=== PATIENT | female | born 1945 | race Caucasian/White ===

== ENCOUNTER 2020-01-29 21:07 | Inpatient (IN) ==
--- NOTE | 2020-01-29 21:27 | DR.GENAD ---
HPI Time Seen Time Seen by Provider: 01/29/20 21:19 PCP Primary Care Physician: ANGELA HPI Comment HPI Comment: Alert / confused, known patient with decub ulcer, currently on Keflex/Clindamycin. Complaint/Symptoms Chief Complaint:: FAMILY STATES UNRESPONSIVE- EMS ARRIVED AND SHE WAS ALERT BUT CONFUSED. FAMILY ALSO STATES SHE HAS A BAD DECUB ULCERN. COVID-19 Coronavirus risk:travel/contact w/high risk person: No Has patient experienced Coronavirus symptoms: No Source History Provided: EMS Mode of Arrival Mode of Arrival: EMS Timing Onset of Chief Complaint: 01/29/20 PMH PMH Past Medical History: Yes Past Medical History: Depression, Dyslipidemia and Hypertension Past Surgical History: Yes Surgical History: Hysterectomy Family History History of Family Medical Conditions: No Social History Does patient currently use any type of tobacco product: No Have you used tobacco products in the last 12 months: No Type of Tobacco Use: None Alcohol Use: None Do you use any recreational Drugs:: No Lives With: Family Lives Where: Home Travel Risk Coronavirus risk:travel/contact w/high risk person: No Has patient experienced Coronavirus symptoms: No Infectious screening In the last 2 months have you had wt loss of >10#?: NO Have you had fever, night sweats or hemotysis?: No Have you traveled outside the country in the last 6 months?: No Isolation: Standard ROS Review of Systems Constitutional: No Symptoms Reported Eyes: No Symptoms Reported ENTM: No Symptoms Reported Respiratoy: No Symptoms Reported Cardiovascular: No Symptoms Reported Gastrointestinal/Abdominal: No Symptoms Reported Genitourinary: No Symptoms Reported Neurological: See HPI Musculoskeletal: No Symptoms Reported Integumentary: See HPI Hematologic/Lymphatic: No Symptoms Reported Endocrine: No Symptoms Reported Psychiatric: No Symptoms Reported All Other Systems: Reviewed and Negative Unable to Obtain Due To: Altered mental status and Dementia PE Vital Signs Vitals: Temperature 97.6 F Pulse Rate 112 Respiratory Rate 16 Blood Pressure 151/93 O2 Sat by Pulse Oximetry 93 General Limitations: Altered Mental Status General Appearance: In No Apparent Distress and Lethargic Head Head Exam: Normal Inspection, Atraumatic and Normocephalic Eyes Eye exam: Normal Appearance, PERRL and EOMI ENT ENT Exam: Normal Exam and Mucous Membranes Dry External Ear Exam: Normal External Inspection TM/Canal Exam: Bilateral: Normal Nose Exam: Normal Nose Exam Mouth Exam: Normal Inspection Throat Exam: Normal Inspection Neck Neck Exam: Normal Inspection and Full ROM Chest Chest Inspection: Normal Inspection Respiratory Respiratory Exam: Normal Lung Sounds Bilat; negative Accessory Muscle Use and Respiratory Distress Respiratory Exam: Bilateral: Clear to Auscultation Cardiovascular Cardiovascular Exam: Tachycardia and Irregular Rhythm Abdominal Exam Abdominal Exam: Normal Inspection, Normal Bowel Sounds and Soft; negative Distention, Tenderness, Guarding, Rebound and Rigidity Extremities Extremities Exam: Normal Inspection and Full ROM; negative Edema Back Back Exam: Other (Sacral decubitus wound approx 6 x 6 cm with central ulceration.) Neurologic Neurological Exam: Alert, Oriented X3, CN II-XII Intact and Other (NIHSS = 0) Psychiatric Psychiatric Exam: Flat Affect Skin Skin Exam: Warm, Dry, Intact and Normal Color COURSE Treatment Treatment: No localizing neurological signs or symptoms. Patient more alert and communicative after fluid bolus, and appears at baseline previously observed in this ED. Known decubitus ulcer currently under outpatient care. Chest XR read as possible aspiration pneumonia, and UTI on current antibiotic is concerning for outpatient treatment failure. Will be admitted for IV antibiotics and observation. Reevaluation 1st: Improved ROR Labs Reviewed Result Diagrams: 01/29/20 22:04 01/29/20 22:04 Laboratory: WBC 9.5 X10^3/uL (3.6-10.0) 01/29/20 22:04 RBC 3.93 X10^6/uL (3.5-5.4) 01/29/20 22:04 Hgb 11.6 g/dL (12.0-16.0) L 01/29/20 22:04 Hct 36.1 % (36.0-47.0) 01/29/20 22:04 MCV 91.7 fL (80.0-100.0) 01/29/20 22:04 MCH 29.6 pg (27.0-34.0) 01/29/20 22:04 MCHC 32.3 g/dL (33.0-35.0) L 01/29/20 22:04 RDW 15.6 % (11.6-16.5) 01/29/20 22:04 Plt Count 303 X10^3/uL (150.0-450.0) 01/29/20 22:04 MPV 9.7 fL (7.4-11.0) 01/29/20 22:04 Neut % (Auto) 74.8 % (42.0-75.0) 01/29/20 22:04 Lymph % (Auto) 17.2 % (21.0-51.0) L 01/29/20 22:04 [place] % (Auto) 6.5 % (0.0-13.0) 01/29/20 22:04 Eos % (Auto) 0.8 % (0.9-2.9) L 01/29/20 22:04 Baso % (Auto) 0.7 % (0.2-1.0) 01/29/20 22:04 Neut # (Auto) 7.1 x10^3/uL (2.2-4.8) H 01/29/20 22:04 Lymph # (Auto) 1.6 X10^3/uL (1.3-2.9) 01/29/20 22:04 [place] # (Auto) 0.6 x10^3/uL (0.3-0.8) 01/29/20 22:04 Eos # (Auto) 0.1 x10^3/uL (0.0-0.2) 01/29/20 22:04 Baso # (Auto) 0.1 X10^3/uL (0.0-0.1) 01/29/20 22:04 Absolute Nucleated RBC 0.0 /100WBC 01/29/20 22:04 PT 20.6 SECONDS (11.8-14.3) 01/29/20 21:45 INR Target Range - 01/29/20 21:45 INR 1.83 (0.8-1.3) H 01/29/20 21:45 APTT 28.9 SECONDS (22.9-36.5) 01/29/20 21:45 PTT Comment - 01/29/20 21:45 Sodium 133 mmol/L (136-145) L 01/29/20 22:04 Corrected Sodium TNP 01/29/20 22:04 Potassium 3.7 mmol/L (3.5-5.1) 01/29/20 22:04 Chloride 103 mmol/L (98-107) 01/29/20 22:04 Carbon Dioxide 23.5 mmol/L (21-32) 01/29/20 22:04 BUN 26 mg/dL (7-18) H 01/29/20 22:04 Creatinine 1.38 mg/dL (0.55-1.02) H 01/29/20 22:04 Est GFR (MDRD) Af Amer 48 (>60) L 01/29/20 22:04 Est GFR (MDRD) Non-Af 40 (>60) L 01/29/20 22:04 Glucose 81 mg/dL (65-99) 01/29/20 22:04 Lactic Acid 1.5 mmol/L (0.4-2.0) 01/29/20 22:04 Calcium 8.9 mg/dL (8.5-10.1) 01/29/20 22:04 Corrected Calcium 10.1 mg/dL (8.5-10.1) 01/29/20 22:04 Magnesium 1.8 mg/dL (1.7-2.9) 01/29/20 22:04 Total Bilirubin 0.50 mg/dL (0.2-1.0) 01/29/20 22:04 AST 25 Units/L (15-37) 01/29/20 22:04 ALT 17 Units/L (12-78) 01/29/20 22:04 Alkaline Phosphatase 59 Units/L (46-116) 01/29/20 22:04 Creatine Kinase 328 Units/L (26-192) H 01/29/20 22:04 CK-MB (CK-2) 2.4 ng/mL (0-4.0) 01/29/20 22:04 CK/CKMB % Calc 0.7 % (<4) 01/29/20 22:04 Troponin I < 0.02 ng/mL (0-1.5) 01/29/20 22:04 Total Protein 6.9 g/dL (6.4-8.2) 01/29/20 22:04 Albumin 2.5 g/dL (3.4-5.0) L 01/29/20 22:04 Globulin 4.4 g/dL (2.5-4.5) 01/29/20 22:04 Albumin/Globulin Ratio 0.6 Ratio (1.1-2.1) L 01/29/20 22:04 Specimen Type Catherized urine 01/30/20 00:50 Urine Color Yellow (YELLOW) 01/30/20 00:50 Urine Appearance Cloudy (CLEAR) 01/30/20 00:50 Urine pH 6.0 (5.0 - 8.0) 01/30/20 00:50 Ur Specific [place] 1.020 (1.000-1.030) 01/30/20 00:50 Urine Protein 2+ (NEGATIVE) 01/30/20 00:50 Urine Glucose (UA) Negative (NEGATIVE) 01/30/20 00:50 Urine Ketones Negative (NEGATIVE) 01/30/20 00:50 Urine Occult Blood 2+ (NEGATIVE) 01/30/20 00:50 Urine Nitrite Positive (NEGATIVE) 01/30/20 00:50 Urine Bilirubin Negative (NEGATIVE) 01/30/20 00:50 Urine Urobilinogen Normal (NORMAL) 01/30/20 00:50 Ur Leukocyte Esterase 1+ (NEGATIVE) 01/30/20 00:50 Urine RBC 3-5 /HPF (0-3) A 01/30/20 00:50 Urine WBC Tntc /HPF (0-5) A 01/30/20 00:50 Ur Squamous Epith Cells Rare /HPF (NEGATIVE) 01/30/20 00:50 Urine Bacteria 2+ /HPF (NEGATIVE) 01/30/20 00:50 Ur Culture Indicated? Yes/culture set up 01/30/20 00:50 EKG [place]: Normal Rhythm: NSR Block: None Hypertrophy: None ST: Normal Opioid Opioid Risk Tool Age (Elmer box if 16-45): No History of Preadolescent Sexual Abuse: No Total: 0 Total Score Risk Category: Low Risk Copyright: Rogelio SANCHEZ predicting aberrant behaviors Diagnosis Discharge Problem: Aspiration pneumonia Qualifiers: Aspiration pneumonia type: unspecified Laterality: right Lung location: middle lobe of lung Qualified Code(s): J69.0 - Pneumonitis due to inhalation of food and vomit Urinary tract infection Qualifiers: Urinary tract infection type: site unspecified Hematuria presence: with hematuria Qualified Code(s): N39.0 - Urinary tract infection, site not specified
[2020-01-29] MEDS ORDERED: NS 500 ML IV 500 ML IV ONE ×2 (21:28→21:30)
[2020-01-29] MEDS: NS 500 ML IV 500 ML IV ONE (21:35)
--- NOTE | 2020-01-29 21:44 | RAD ---
HISTORYLETHARGYSTUDYCHEST, 1 VIEWCOMPARISONNo recent exam available for comparison.FINDINGSThe trachea is midline. The cardiac silhouette is within normal limits. Hazy opacities at the medial right lung base. No pleural effusion or pneumothorax.. The bony thorax is unremarkable.IMPRESSIONHazy opacities at the medial right lung base, which may represent atelectasis or infiltrates. Aspiration could have a similar appearance. Follow-up is recommended.Electronically signed by: Radha Blanco (Jan 29, 2020 21:42:52)
[2020-01-29 22:28] LABS: LACTIC ACID 1.5 mmol/L (0.4-2.0)
[2020-01-29 22:30] LABS: BLOOD UREA NITROGEN 26 mg/dL (7-18); CALCIUM 8.9 mg/dL (8.5-10.1); CARBON DIOXIDE 23.5 mmol/L (21-32); CHLORIDE 103 mmol/L (98-107); CREATININE 1.38 mg/dL (0.55-1.02); SODIUM 133 mmol/L (136-145); TROPONIN I < 0.02 ng/mL (0-1.5); eGFR NON BLACK RACES 40 (>60)
[2020-01-29 22:34] LABS: ALANINE AMINOTRANSFERASE 17 Units/L (12-78); ALBUMIN 2.5 g/dL (3.4-5.0); ALKALINE PHOSPHATASE 59 Units/L (46-116); ASPARTATE AMINO TRANSFERASE 25 Units/L (15-37); CKMB % 0.7 % (<4); COR CA(FOR HYPOALB) 10.1 mg/dL (8.5-10.1); CREATINE KINASE 328 Units/L (26-192); CREATINE KINASE MB 2.4 ng/mL (0-4.0); MAGNESIUM 1.8 mg/dL (1.7-2.9); TOTAL PROTEIN 6.9 g/dL (6.4-8.2)
[2020-01-29 23:55] LABS: BASOPHILS # (AUTO) 0.1 X10^3/uL (0.0-0.1); BASOPHILS % (AUTO) 0.7 % (0.2-1.0); EOSINOPHILS # (AUTO) 0.1 x10^3/uL (0.0-0.2); EOSINOPHILS % (AUTO) 0.8 % (0.9-2.9); HEMATOCRIT 36.1 % (36.0-47.0); HEMOGLOBIN 11.6 g/dL (12.0-16.0); LYMPHOCYTES # (AUTO) 1.6 X10^3/uL (1.3-2.9); LYMPHOCYTES % (AUTO) 17.2 % (21.0-51.0); MEAN CORPUSCULAR HEMOGLOBIN 29.6 pg (27.0-34.0); MEAN CORPUSCULAR HGB CONC 32.3 g/dL (33.0-35.0); MEAN CORPUSCULAR VOLUME 91.7 fL (80.0-100.0); MEAN PLATELET VOLUME 9.7 fL (7.4-11.0); MONOCYTES # (AUTO) 0.6 x10^3/uL (0.3-0.8); MONOCYTES % (AUTO) 6.5 % (0.0-13.0); NEUTROPHILS # (AUTO) 7.1 x10^3/uL (2.2-4.8); NEUTROPHILS % (AUTO) 74.8 % (42.0-75.0); PLATELET COUNT 303 X10^3/uL (150.0-450.0); RED BLOOD COUNT 3.93 X10^6/uL (3.5-5.4); RED CELL DISTRIBUTION WIDTH 15.6 % (11.6-16.5); WHITE BLOOD COUNT 9.5 X10^3/uL (3.6-10.0)
[2020-01-30] MEDS ORDERED: NS 500 ML IV 500 ML IV ONE (00:15)
[2020-01-30 01:17] LABS: BILIRUBIN,URINE NEGATIVE (NEGATIVE); BLOOD/HEMOGLOBIN,URINE 2+ (NEGATIVE); GLUCOSE, URINE NEGATIVE (NEGATIVE); KETONES,URINE NEGATIVE (NEGATIVE); LEUKOCYTE ESTERASE ,URINE 1+ (NEGATIVE); NITRITES,URINE POSITIVE (NEGATIVE); PROTEIN,URINE 2+ (NEGATIVE); UROBILINOGEN,URINE NORMAL (NORMAL)
[2020-01-30 01:27] LABS: APPEARANCE,URINE CLOUDY (CLEAR); COLOR,URINE YELLOW (YELLOW)
[2020-01-30 01:28] LABS: BACTERIA,URINE 2+ /HPF (NEGATIVE); SQUAMOUS EPITHELIAL CELL,UR RARE /HPF (NEGATIVE)
[2020-01-30] MEDS ORDERED: ZOSYN VIAL 3.375 GRAMS 3.375 G in NS 100 ML IV + SPIKE MINIBAG* 100 ML IV ONE (02:11)
[2020-01-30] MEDS ORDERED: NS 100 ML IV + SPIKE MINIBAG* 100 ML IV ONE (02:13)
[2020-01-30] MEDS ORDERED: ZOSYN VIAL 3.375 GRAMS IV ONE (02:13)
[2020-01-30] MEDS ORDERED: NORCO 7.5/325 MG TAB PO ONE (02:52)
[2020-01-30] MEDS ORDERED: NORCO 7.5/325 MG TAB ONE (02:54)
[2020-01-30] MEDS ORDERED: NS 1000 ML 1,000 ML ONE (03:37)
[2020-01-30] MEDS: NS 1000 ML 1,000 ML IV SCH ×2 (03:41→17:03)
--- NOTE | 2020-01-30 04:07 | DR.H&P ---
H&P - History & Physical for Day of: H&P Date: 01/30/20 - Chief Complaint Chief Complaint: AMS - History of Present Illness History of Present Illness: PT IS 5 WF ER ADMISSION, NEW TO [facility], WITH FAMILY CO AMS. PT HAD HX OF CVA AND AFIB. PT HAS STAGE4 SACRAL DECUBITUS WITH MALODOROUS DC. PT HAD UTI ON EVALUATION IN ER. PT ADMITTED FOR ACUTE ILLNESS R/O SEPSIS. - Past Medical History Past Medical History: Anxiety, Arthritis, CVA, Dementia, Depression, Dyslipidemia, Hypertension Additional Medical History: AFIB - Past Surgical History Surgical History: Hysterectomy - Social History Does patient currently use any type of tobacco product: No Have you used tobacco products in the last 12 months: No Type of Tobacco Use: None Alcohol Use: None - Medications Home Medications: No Known Drug Allergies Allergy (Verified 01/23/20 18:03) CONTINUE taking the following medications alprazolam 1 mg PO BID PRN 01/30/20 [History] amiodarone 200 mg PO DAILY 01/30/20 [History] aspirin 81 mg PO DAILY 01/30/20 [History] atorvastatin 20 mg PO DAILY 01/30/20 [History] cephalexin 500 mg PO TID 01/30/20 [History] clopidogrel 75 mg PO DAILY 01/30/20 [History] hydrocodone-acetaminophen 1 tab PO BID PRN 01/30/20 [History] lansoprazole 30 mg PO DAILY 01/30/20 [History] lisinopril 20 mg PO BID 01/30/20 [History] megestrol 40 mg PO BID 01/30/20 [History] metoprolol succinate 50 mg PO DAILY 01/30/20 [History] montelukast 10 mg PO DAILY 01/30/20 [History] rivaroxaban [Xarelto] 20 mg PO DAILY 01/30/20 [History] - Review of Systems Constitutional: Weakness Eyes: No Symptoms Reported ENT: No Symptoms Reported Respiratory: No Symptoms Reported Cardiovascular: No Symptoms Reported. denies: Edema Gastrointestinal: Other (APPETITE LOSS) Genitourinary: Incontinence Musculoskeletal: No Symptoms Reported Skin: Wound Neurological: Weakness, Confusion - Physical Exam Vital Signs: Temperature 97.6 F Pulse Rate 112 Respiratory Rate 19 Blood Pressure [Left Arm] 182/92 Blood Pressure 151/93 O2 Sat by Pulse Oximetry 98 Oriented: Person Eyes: Normal Ear: Normal Nose: Normal Throat: Dry Respiratory: RLL Diminished, LLL Diminished Cardiovascular: Irregular : Dysuria Auscultation: Bowel Sounds: Normal Palpation: Normal Tenderness: Normal Skin: Decreased Turgur, Wound (SACRAL DECUBITUS) Musculoskeletal: Motor Deficit, Instability Psychiatric: Anxiety Affect: Anxious Speech Pattern: Inappropriate - Assessment/Plan (1) AMS (altered mental status) Status: Acute Plan: ADMIT, R/O COVID 19 SEPSIS. RAPID SWAB NEGATIVE IN ER. WOUND CULTURE, WOUND CONSULT, IV ATBX. RESP THERAPY, SPUTUM, BLOOD AND URINE CULTURE. IV HYDRATION, DALEY CATH WITH STRICT I&OS. OCCULT STOOL, VERIFY HOME MEDICATION, SUPPLEMENTAL O2. CASEMANAGEMENT CONSULT FOR FUTURE LONG TERM PLACEMENT (2) Aspiration pneumonia Qualifiers: Aspiration pneumonia type: unspecified Laterality: right Lung location: middle lobe of lung Qualified Code(s): J69.0 - Pneumonitis due to inhalation of food and vomit Status: Acute (3) Urinary tract infection Qualifiers: Urinary tract infection type: site unspecified Hematuria presence: with hematuria Qualified Code(s): N39.0 - Urinary tract infection, site not specified; R31.9 - Hematuria, unspecified Status: Acute (4) Decubitus ulcer Qualifiers: Pressure injury location: sacral region Pressure injury stage: unspecified pressure injury stage Qualified Code(s): L89.159 - Pressure ulcer of sacral region, unspecified stage Status: Acute - Allergies Allergies/Adverse Reactions: Allergies Allergy/AdvReac Type Severity Reaction Status Date / Time No Known Drug Allergies Allergy Verified 01/23/20 18:03
[2020-01-30 04:25] VITALS: BMI 15.5
[2020-01-30 05:50] LABS: BLOOD UREA NITROGEN 20 mg/dL (7-18); CALCIUM 8.7 mg/dL (8.5-10.1); CARBON DIOXIDE 24.2 mmol/L (21-32); CHLORIDE 105 mmol/L (98-107); CREATININE 1.12 mg/dL (0.55-1.02); MAGNESIUM 1.7 mg/dL (1.7-2.9); PHOSPHORUS 2.8 mg/dL (2.6-4.7); SODIUM 138 mmol/L (136-145); eGFR NON BLACK RACES 51 (>60)
[2020-01-30 05:51] LABS: BASOPHILS # (AUTO) 0.1 X10^3/uL (0.0-0.1); BASOPHILS % (AUTO) 0.6 % (0.2-1.0); EOSINOPHILS # (AUTO) 0.1 x10^3/uL (0.0-0.2); HEMATOCRIT 35.6 % (36.0-47.0); HEMOGLOBIN 11.6 g/dL (12.0-16.0); LYMPHOCYTES # (AUTO) 1.6 X10^3/uL (1.3-2.9); LYMPHOCYTES % (AUTO) 18.7 % (21.0-51.0); MEAN CORPUSCULAR HEMOGLOBIN 29.5 pg (27.0-34.0); MEAN CORPUSCULAR HGB CONC 32.6 g/dL (33.0-35.0); MEAN CORPUSCULAR VOLUME 90.4 fL (80.0-100.0); MEAN PLATELET VOLUME 8.9 fL (7.4-11.0); MONOCYTES # (AUTO) 0.4 x10^3/uL (0.3-0.8); MONOCYTES % (AUTO) 4.8 % (0.0-13.0); NEUTROPHILS # (AUTO) 6.5 x10^3/uL (2.2-4.8); NEUTROPHILS % (AUTO) 74.9 % (42.0-75.0); PLATELET COUNT 307 X10^3/uL (150.0-450.0); RED BLOOD COUNT 3.93 X10^6/uL (3.5-5.4); RED CELL DISTRIBUTION WIDTH 15.7 % (11.6-16.5); WHITE BLOOD COUNT 8.6 X10^3/uL (3.6-10.0)
[2020-01-30 05:58] LABS: PREALBUMIN 13.4 mg/dL (18-35.7)
[2020-01-30] MEDS ORDERED: KLOR-CON PO PRN (06:13)
[2020-01-30] MEDS ORDERED: K-RIDER 10 MEQ/NS 100 ML 10 MEQ/100 ML BAG IV PRN (06:13)
[2020-01-30] MEDS ORDERED: POTASSIUM CHL 40 MEQ/NS 0.45% 500 ML IV PRN (06:13)
[2020-01-30] MEDS ORDERED: POTASSIUM CHL 60 MEQ/NS 0.45% 500 ML IV PRN (06:13)
[2020-01-30] MEDS ORDERED: POTASSIUM CHLORIDE LIQ 20 MEQ UDC PO PRN (06:13)
[2020-01-30] MEDS ORDERED: MICRO K EXTEN CAP 10 MEQ PO PRN (06:13)
[2020-01-30] MEDS ORDERED: MEGESTROL 40 MG PO SCH (09:00)
[2020-01-30] MEDS ORDERED: XYLOCAINE 1 % (PLAIN) ONE (09:21)
[2020-01-30] MEDS ORDERED: XYLOCAINE 2 % (PLAIN) ONE (09:21)
[2020-01-30] MEDS ORDERED: BETADINE SOLN ONE (09:22)
[2020-01-30] MEDS ORDERED: LR 1000 ML IV 1,000 ML IV ONE (09:24)
[2020-01-30] MEDS ORDERED: ANCEF 1 GRAM IV PREMIX* 1 G/50 ML BAG IV ONE (09:25)
[2020-01-30] MEDS ORDERED: DIPRIVAN VIAL ONE (09:51)
[2020-01-30] MEDS: ZOSYN VIAL 2.25 GRAMS 2.25 G in NS 100 ML IV + SPIKE MINIBAG* 100 ML IV SCH ×3 (10:07→21:19)
--- NOTE | 2020-01-30 10:12 | OR.IMMED ---
Immediate Post-Op Note - Immediate Post-Op Note Pre-Op Diagnosis: large sacral ulcer Post-Op Diagnosis: large sacral decubitus ulcer stage lV. [id number] Procedure: excisional debridement of large sacral decubitus ulcer . Surgeon/Piece Hand: Andres Specimens Removed: necroic tissue Complications: npne Condition: Stable (to change dressing and packing daily)
[2020-01-30] MEDS ORDERED: ZESTRIL TAB 20 MG ONE ×2 (10:57→20:14)
[2020-01-30] MEDS: PLAVIX PO SCH (11:05)
[2020-01-30] MEDS: ASPIRIN EC 81 MG PO SCH (11:05)
[2020-01-30] MEDS: PREVACID PO SCH (11:05)
[2020-01-30] MEDS: TOPROL XL PO SCH (11:06)
[2020-01-30] MEDS: SINGULAIR TAB 10 MG PO SCH (11:06)
[2020-01-30] MEDS: CORDARONE TAB 200 MG PO SCH (11:06)
[2020-01-30] MEDS: MEGACE PO SCH ×2 (11:07→21:19)
[2020-01-30] MEDS: XARELTO PO SCH (11:07)
[2020-01-30] MEDS: ZESTRIL TAB 20 MG PO SCH ×2 (11:07→21:20)
[2020-01-30] MEDS: NORCO 7.5/325 MG TAB PO PRN ×2 (11:08→17:47)
[2020-01-30] MEDS ORDERED: MAGNESIUM SULFATE 1 GRAM/100 mL PREMIX 1 G/100 ML BAG IV ONE (16:08)
[2020-01-30] MEDS ORDERED: NS 250 ML IV 250 ML IV ONE (16:09)
[2020-01-30] MEDS: MAGNESIUM SULFATE 1 GRAM/100 mL PREMIX 1 GM/100 ML BAG IV PRN ×2 (16:17→17:37)
[2020-01-30] MEDS: LIPITOR TAB 20 MG PO SCH (21:19)
[2020-01-31] MEDS: NORCO 7.5/325 MG TAB PO PRN (01:14)
[2020-01-31] MEDS: ZOSYN VIAL 2.25 GRAMS 2.25 G in NS 100 ML IV + SPIKE MINIBAG* 100 ML IV SCH ×4 (01:14→20:31)
[2020-01-31] MEDS: NS 1000 ML 1,000 ML IV SCH ×3 (05:05→21:48)
[2020-01-31 07:12] LABS: ALANINE AMINOTRANSFERASE 14 Units/L (12-78); ALBUMIN 2.1 g/dL (3.4-5.0); ALKALINE PHOSPHATASE 47 Units/L (46-116); ASPARTATE AMINO TRANSFERASE 19 Units/L (15-37); BLOOD UREA NITROGEN 14 mg/dL (7-18); CALCIUM 8.2 mg/dL (8.5-10.1); CARBON DIOXIDE 24.6 mmol/L (21-32); CHLORIDE 108 mmol/L (98-107); COR CA(FOR HYPOALB) 9.7 mg/dL (8.5-10.1); CREATININE 1.05 mg/dL (0.55-1.02); SODIUM 140 mmol/L (136-145); eGFR NON BLACK RACES 55 (>60)
[2020-01-31 07:14] LABS: BASOPHILS % (AUTO) 0.5 % (0.2-1.0); EOSINOPHILS # (AUTO) 0.1 x10^3/uL (0.0-0.2); EOSINOPHILS % (AUTO) 1.1 % (0.9-2.9); HEMOGLOBIN 10.6 g/dL (12.0-16.0); LYMPHOCYTES # (AUTO) 2.2 X10^3/uL (1.3-2.9); LYMPHOCYTES % (AUTO) 24.6 % (21.0-51.0); MEAN CORPUSCULAR HGB CONC 33.1 g/dL (33.0-35.0); MEAN CORPUSCULAR VOLUME 90.7 fL (80.0-100.0); MEAN PLATELET VOLUME 8.6 fL (7.4-11.0); MONOCYTES # (AUTO) 0.6 x10^3/uL (0.3-0.8); MONOCYTES % (AUTO) 6.4 % (0.0-13.0); NEUTROPHILS % (AUTO) 67.4 % (42.0-75.0); PLATELET COUNT 281 X10^3/uL (150.0-450.0); RED BLOOD COUNT 3.53 X10^6/uL (3.5-5.4); RED CELL DISTRIBUTION WIDTH 15.4 % (11.6-16.5)
[2020-01-31] MEDS ORDERED: ZESTRIL TAB 20 MG ONE ×2 (09:35→20:16)
[2020-01-31] MEDS ORDERED: NS 100 ML IV 100 ML IV ONE (09:37)
[2020-01-31] MEDS ORDERED: ZOSYN VIAL 2.25 GRAMS IV ONE (09:37)
[2020-01-31] MEDS: ASPIRIN EC 81 MG PO SCH (09:49)
[2020-01-31] MEDS: MEGACE PO SCH ×2 (09:49→20:38)
[2020-01-31] MEDS: TOPROL XL PO SCH (09:49)
[2020-01-31] MEDS: SINGULAIR TAB 10 MG PO SCH (09:49)
[2020-01-31] MEDS: PLAVIX PO SCH (09:50)
[2020-01-31] MEDS: CORDARONE TAB 200 MG PO SCH (09:50)
[2020-01-31] MEDS: PREVACID PO SCH (09:50)
[2020-01-31] MEDS: XARELTO PO SCH (09:51)
[2020-01-31] MEDS: ZESTRIL TAB 20 MG PO SCH ×2 (09:51→20:38)
--- NOTE | 2020-01-31 11:43 | PCM.PROG ---
Progress Note Progress Note for Day of Date of Exam: 01/31/20 Subjective Subjective: Pt is a 75 yo f admitted for AMS, UTI, COVID/Sepsis r/o, Decubitus ulcer. This morning she is sitting up in bed, denies any acute events overnight. Labs/imaging: Wbc 9.0, Hgb 11.6>10.6, Plt 281, Na 140, K 3.8, Cr 1.12>1.05, Gluc 90. UA:+leuks/nitrites, UrineCX: organisms c/w contamination. WoundCx: gram negative rods, BloodCx pending. CXR: Hazy opacities at the medial right lung base, which may represent atelectasis or infiltrates. Aspiration could have a similar appearance. COVID negative. Surgery debridement of wound yesterday and pt has scheduled daily dressing changes. Continue Abx: Zosyn. Will continue to monitor and follow up labs and repeat CXR in the morning. Past Medical Family Social History Past Med/Fam/Surg Hx: No changes since H&P Allergies: Allergies No Known Drug Allergies Allergy (Verified 01/23/20 18:03) Review of Systems ROS: No change since H&P Vital Signs and I&O's Vital Signs: Temperature 97.5 F Pulse Rate [Left Radial] 81 Pulse Rate 96 Respiratory Rate 18 Blood Pressure [Left Arm] 158/85 Blood Pressure 151/93 O2 Sat by Pulse Oximetry 97 Intake and Output: Intake & Output 01/28/20 01/29/20 01/30/20 01/31/20 23:59 23:59 23:59 23:59 Intake Total 120 / 120 1770 / 1770 0 / 0 Output Total 150 / 150 800 / 800 175 / 175 Balance -30 / -30 970 / 970 -175 / -175 Physical Exam Oriented: Person Eyes: Normal Ear: Normal Nose: Normal Throat: Dry Respiratory: Diminished Cardiovascular: Irregular : Dysuria Auscultation: Bowel Sounds: Normal Tenderness: Normal Skin: Decreased Turgur and Wound (SACRAL DECUBITUS) Musculoskeletal: Motor Deficit and Instability Psychiatric: Anxiety Affect: Anxious Speech Pattern: Clear Laboratory and Diagnostics Result Diagrams: 01/31/20 06:40 01/31/20 06:40 Labs: 01/30/20 00:50 Urine,Catheterized Urine Culture - Final 01/30/20 03:55 Coccyx Gram Stain - Final 01/30/20 03:55 Coccyx Wound Culture - Preliminary Laboratory WBC 9.0 X10^3/uL (3.6-10.0) 01/31/20 06:40 RBC 3.53 X10^6/uL (3.5-5.4) 01/31/20 06:40 Hgb 10.6 g/dL (12.0-16.0) L 01/31/20 06:40 Hct 32.0 % (36.0-47.0) L 01/31/20 06:40 MCV 90.7 fL (80.0-100.0) 01/31/20 06:40 MCH 30.0 pg (27.0-34.0) 01/31/20 06:40 MCHC 33.1 g/dL (33.0-35.0) 01/31/20 06:40 RDW 15.4 % (11.6-16.5) 01/31/20 06:40 Plt Count 281 X10^3/uL (150.0-450.0) 01/31/20 06:40 MPV 8.6 fL (7.4-11.0) 01/31/20 06:40 Neut % (Auto) 67.4 % (42.0-75.0) 01/31/20 06:40 Lymph % (Auto) 24.6 % (21.0-51.0) 01/31/20 06:40 [place] % (Auto) 6.4 % (0.0-13.0) 01/31/20 06:40 Eos % (Auto) 1.1 % (0.9-2.9) 01/31/20 06:40 Baso % (Auto) 0.5 % (0.2-1.0) 01/31/20 06:40 Neut # (Auto) 6.0 x10^3/uL (2.2-4.8) H 01/31/20 06:40 Lymph # (Auto) 2.2 X10^3/uL (1.3-2.9) 01/31/20 06:40 [place] # (Auto) 0.6 x10^3/uL (0.3-0.8) 01/31/20 06:40 Eos # (Auto) 0.1 x10^3/uL (0.0-0.2) 01/31/20 06:40 Baso # (Auto) 0.0 X10^3/uL (0.0-0.1) 01/31/20 06:40 Absolute Nucleated RBC 0.0 /100WBC 01/31/20 06:40 PT 20.6 SECONDS (11.8-14.3) 01/29/20 21:45 INR Target Range - 01/29/20 21:45 INR 1.83 (0.8-1.3) H 01/29/20 21:45 APTT 28.9 SECONDS (22.9-36.5) 01/29/20 21:45 PTT Comment - 01/29/20 21:45 Sodium 140 mmol/L (136-145) 01/31/20 06:40 Corrected Sodium TNP 01/31/20 06:40 Potassium 3.8 mmol/L (3.5-5.1) 01/31/20 06:40 Chloride 108 mmol/L (98-107) H 01/31/20 06:40 Carbon Dioxide 24.6 mmol/L (21-32) 01/31/20 06:40 BUN 14 mg/dL (7-18) 01/31/20 06:40 Creatinine 1.05 mg/dL (0.55-1.02) H 01/31/20 06:40 Est GFR (MDRD) Af Amer > 60 (>60) 01/31/20 06:40 Est GFR (MDRD) Non-Af 55 (>60) L 01/31/20 06:40 Glucose 90 mg/dL (65-99) 01/31/20 06:40 Lactic Acid 1.5 mmol/L (0.4-2.0) 01/29/20 22:04 Calcium 8.2 mg/dL (8.5-10.1) L 01/31/20 06:40 Corrected Calcium 9.7 mg/dL (8.5-10.1) 01/31/20 06:40 Phosphorus 2.8 mg/dL (2.6-4.7) 01/30/20 04:20 Magnesium 1.7 mg/dL (1.7-2.9) 01/30/20 04:20 Total Bilirubin 0.30 mg/dL (0.2-1.0) 01/31/20 06:40 AST 19 Units/L (15-37) 01/31/20 06:40 ALT 14 Units/L (12-78) 01/31/20 06:40 Alkaline Phosphatase 47 Units/L (46-116) 01/31/20 06:40 Creatine Kinase 328 Units/L (26-192) H 01/29/20 22:04 CK-MB (CK-2) 2.4 ng/mL (0-4.0) 01/29/20 22:04 CK/CKMB % Calc 0.7 % (<4) 01/29/20 22:04 Troponin I < 0.02 ng/mL (0-1.5) 01/29/20 22:04 Total Protein 6.0 g/dL (6.4-8.2) L 01/31/20 06:40 Albumin 2.1 g/dL (3.4-5.0) L 01/31/20 06:40 Globulin 3.9 g/dL (2.5-4.5) 01/31/20 06:40 Albumin/Globulin Ratio 0.5 Ratio (1.1-2.1) L 01/31/20 06:40 Prealbumin 13.4 mg/dL (18-35.7) L 01/30/20 04:20 Specimen Type Catherized urine 01/30/20 00:50 Urine Color Yellow (YELLOW) 01/30/20 00:50 Urine Appearance Cloudy (CLEAR) 01/30/20 00:50 Urine pH 6.0 (5.0 - 8.0) 01/30/20 00:50 Ur Specific [place] 1.020 (1.000-1.030) 01/30/20 00:50 Urine Protein 2+ (NEGATIVE) 01/30/20 00:50 Urine Glucose (UA) Negative (NEGATIVE) 01/30/20 00:50 Urine Ketones Negative (NEGATIVE) 01/30/20 00:50 Urine Occult Blood 2+ (NEGATIVE) 01/30/20 00:50 Urine Nitrite Positive (NEGATIVE) 01/30/20 00:50 Urine Bilirubin Negative (NEGATIVE) 01/30/20 00:50 Urine Urobilinogen Normal (NORMAL) 01/30/20 00:50 Ur Leukocyte Esterase 1+ (NEGATIVE) 01/30/20 00:50 Urine RBC 3-5 /HPF (0-3) A 01/30/20 00:50 Urine WBC Tntc /HPF (0-5) A 01/30/20 00:50 Ur Squamous Epith Cells Rare /HPF (NEGATIVE) 01/30/20 00:50 Urine Bacteria 2+ /HPF (NEGATIVE) 01/30/20 00:50 Ur Culture Indicated? Yes/culture set up 01/30/20 00:50 SARS-CoV-2 (PCR) Negative (NEGATIVE) 01/30/20 02:10 Tissue Pathology To follow 01/30/20 10:00 Plan (1) AMS (altered mental status): Status: Acute Plan: ADMIT, R/O COVID 19 SEPSIS RAPID SWAB NEGATIVE IN ER WOUND CULTURE, WOUND CONSULT, IV ATBX RESP THERAPY, SPUTUM, BLOOD AND URINE CULTURE IV HYDRATION, DALEY CATH WITH STRICT I&OS OCCULT STOOL, VERIFY HOME MEDICATION, SUPPLEMENTAL O2 CASEMANAGEMENT CONSULT FOR FUTURE JAIL PLACEMENT (2) Aspiration pneumonia: Status: Acute Qualifiers: Aspiration pneumonia type: unspecified Laterality: right Lung location: middle lobe of lung Qualified Code(s): J69.0 - Pneumonitis due to inhalation of food and vomit (3) Urinary tract infection: Status: Acute Qualifiers: Hematuria presence: with hematuria Urinary tract infection type: site unspecified Qualified Code(s): N39.0 - Urinary tract infection, site not specified; R31.9 - Hematuria, unspecified (4) Decubitus ulcer: Status: Acute Qualifiers: Pressure injury location: sacral region Pressure injury stage: unspecified pressure injury stage Qualified Code(s): L89.159 - Pressure ulcer of sacral region, unspecified stage
[2020-01-31] MEDS: K-DUR TAB 20 MEQ PO PRN (15:47)
[2020-01-31] MEDS: LIPITOR TAB 20 MG PO SCH (20:38)
[2020-01-31] MEDS: TYLENOL 325 MG TAB PO PRN (20:39)
[2020-02-01] MEDS: ZOSYN VIAL 2.25 GRAMS 2.25 G in NS 100 ML IV + SPIKE MINIBAG* 100 ML IV SCH ×4 (01:37→20:40)
[2020-02-01] MEDS ORDERED: ZESTRIL TAB 20 MG ONE ×2 (08:15→19:46)
[2020-02-01] MEDS: MEGACE PO SCH ×2 (08:39→20:41)
[2020-02-01] MEDS: XARELTO PO SCH (08:40)
[2020-02-01] MEDS: TOPROL XL PO SCH (08:40)
[2020-02-01] MEDS: SINGULAIR TAB 10 MG PO SCH (08:40)
[2020-02-01] MEDS: ZESTRIL TAB 20 MG PO SCH ×2 (08:40→20:40)
[2020-02-01] MEDS: CORDARONE TAB 200 MG PO SCH (08:40)
[2020-02-01] MEDS: ASPIRIN EC 81 MG PO SCH (08:40)
[2020-02-01] MEDS: PLAVIX PO SCH (08:41)
[2020-02-01] MEDS: PREVACID PO SCH (08:41)
[2020-02-01 09:06] LABS: BASOPHILS % (AUTO) 0.5 % (0.2-1.0); EOSINOPHILS # (AUTO) 0.1 x10^3/uL (0.0-0.2); EOSINOPHILS % (AUTO) 0.9 % (0.9-2.9); HEMOGLOBIN 11.2 g/dL (12.0-16.0); LYMPHOCYTES # (AUTO) 1.1 X10^3/uL (1.3-2.9); LYMPHOCYTES % (AUTO) 12.9 % (21.0-51.0); MEAN CORPUSCULAR HEMOGLOBIN 30.2 pg (27.0-34.0); MEAN CORPUSCULAR HGB CONC 32.9 g/dL (33.0-35.0); MEAN CORPUSCULAR VOLUME 91.6 fL (80.0-100.0); MEAN PLATELET VOLUME 9.1 fL (7.4-11.0); MONOCYTES # (AUTO) 0.3 x10^3/uL (0.3-0.8); NEUTROPHILS % (AUTO) 82.7 % (42.0-75.0); PLATELET COUNT 333 X10^3/uL (150.0-450.0); RED BLOOD COUNT 3.71 X10^6/uL (3.5-5.4); WHITE BLOOD COUNT 8.4 X10^3/uL (3.6-10.0)
[2020-02-01 09:42] LABS: ALANINE AMINOTRANSFERASE 15 Units/L (12-78); ALBUMIN 2.3 g/dL (3.4-5.0); ALKALINE PHOSPHATASE 55 Units/L (46-116); ASPARTATE AMINO TRANSFERASE 19 Units/L (15-37); BLOOD UREA NITROGEN 9 mg/dL (7-18); CALCIUM 8.8 mg/dL (8.5-10.1); CARBON DIOXIDE 23.8 mmol/L (21-32); CHLORIDE 107 mmol/L (98-107); COR CA(FOR HYPOALB) 10.2 mg/dL (8.5-10.1); COR NA(FOR HYPERGLY) 141 mmol/L (136-145); CREATININE 1.06 mg/dL (0.55-1.02); SODIUM 139 mmol/L (136-145); TOTAL PROTEIN 6.8 g/dL (6.4-8.2); eGFR NON BLACK RACES 54 (>60)
--- NOTE | 2020-02-01 11:46 | PCM.PROG ---
Progress Note Progress Note for Day of Date of Exam: 02/01/20 Subjective Subjective: Pt is a 75 yo f admitted for AMS, UTI, COVID/Sepsis r/o, Decubitus ulcer. This morning she is sitting up in bed and has no concerns. Labs/imaging: Wbc 8.4, Hgb 11.2, Plt 333, Na 139, K 3.7, Cr 1.06, Gluc 190. UA:+leuks/nitrites, UrineCX: organisms c/w contamination. WoundCx: positive E. coli, BloodCx NGTD. CXR: Hazy opacities at the medial right lung base, which may represent atelectasis or infiltrates. Aspiration could have a similar appearance, repeat CXR this morning pending. COVID negative. Sacral wound followed by surgery-Dr Campos, cultures positive for E.coli. Continue Abx: Zos yn. Will continue to monitor and follow up labs in the morning. Past Medical Family Social History Past Med/Fam/Surg Hx: No changes since H&P Allergies: Allergies No Known Drug Allergies Allergy (Verified 01/23/20 18:03) Review of Systems ROS: No change since H&P Vital Signs and I&O's Vital Signs: Temperature 97.9 F Pulse Rate [Left Radial] 89 Pulse Rate 89 Respiratory Rate 18 Blood Pressure [Left Arm] 163/84 Blood Pressure 151/93 O2 Sat by Pulse Oximetry 100 Intake and Output: Intake & Output 01/29/20 01/30/20 01/31/20 02/01/20 23:59 23:59 23:59 23:59 Intake Total 120 / 120 1770 / 1770 1300 / 1300 365 / 365 Output Total 150 / 150 800 / 800 1325 / 1325 500 / 500 Balance -30 / -30 970 / 970 -25 / -25 -135 / -135 Physical Exam Oriented: Person Eyes: Normal Ear: Normal Nose: Normal Throat: Dry Respiratory: Diminished Cardiovascular: Irregular : Dysuria Auscultation: Bowel Sounds: Normal Tenderness: Normal Skin: Decreased Turgur and Wound (SACRAL DECUBITUS) Musculoskeletal: Motor Deficit and Instability Psychiatric: Anxiety Affect: Anxious Speech Pattern: Clear Laboratory and Diagnostics Result Diagrams: 02/01/20 08:50 02/01/20 08:50 Labs: 01/30/20 03:55 Coccyx Gram Stain - Final 01/30/20 03:55 Coccyx Wound Culture - Final Escherichia Coli 01/30/20 04:20 Blood Blood Culture - Preliminary 01/30/20 04:20 Blood Blood Culture - Preliminary 01/30/20 00:50 Urine,Catheterized Urine Culture - Final Laboratory WBC 8.4 X10^3/uL (3.6-10.0) 02/01/20 08:50 RBC 3.71 X10^6/uL (3.5-5.4) 02/01/20 08:50 Hgb 11.2 g/dL (12.0-16.0) L 02/01/20 08:50 Hct 34.0 % (36.0-47.0) L 02/01/20 08:50 MCV 91.6 fL (80.0-100.0) 02/01/20 08:50 MCH 30.2 pg (27.0-34.0) 02/01/20 08:50 MCHC 32.9 g/dL (33.0-35.0) L 02/01/20 08:50 RDW 16.0 % (11.6-16.5) 02/01/20 08:50 Plt Count 333 X10^3/uL (150.0-450.0) 02/01/20 08:50 MPV 9.1 fL (7.4-11.0) 02/01/20 08:50 Neut % (Auto) 82.7 % (42.0-75.0) H 02/01/20 08:50 Lymph % (Auto) 12.9 % (21.0-51.0) L 02/01/20 08:50 [place] % (Auto) 3.0 % (0.0-13.0) 02/01/20 08:50 Eos % (Auto) 0.9 % (0.9-2.9) 02/01/20 08:50 Baso % (Auto) 0.5 % (0.2-1.0) 02/01/20 08:50 Neut # (Auto) 7.0 x10^3/uL (2.2-4.8) H 02/01/20 08:50 Lymph # (Auto) 1.1 X10^3/uL (1.3-2.9) L 02/01/20 08:50 [place] # (Auto) 0.3 x10^3/uL (0.3-0.8) 02/01/20 08:50 Eos # (Auto) 0.1 x10^3/uL (0.0-0.2) 02/01/20 08:50 Baso # (Auto) 0.0 X10^3/uL (0.0-0.1) 02/01/20 08:50 Absolute Nucleated RBC 0.0 /100WBC 02/01/20 08:50 PT 20.6 SECONDS (11.8-14.3) 01/29/20 21:45 INR Target Range - 01/29/20 21:45 INR 1.83 (0.8-1.3) H 01/29/20 21:45 APTT 28.9 SECONDS (22.9-36.5) 01/29/20 21:45 PTT Comment - 01/29/20 21:45 Sodium 139 mmol/L (136-145) 02/01/20 08:50 Corrected Sodium 141 mmol/L (136-145) 02/01/20 08:50 Potassium 3.7 mmol/L (3.5-5.1) 02/01/20 08:50 Chloride 107 mmol/L (98-107) 02/01/20 08:50 Carbon Dioxide 23.8 mmol/L (21-32) 02/01/20 08:50 BUN 9 mg/dL (7-18) 02/01/20 08:50 Creatinine 1.06 mg/dL (0.55-1.02) H 02/01/20 08:50 Est GFR (MDRD) Af Amer > 60 (>60) 02/01/20 08:50 Est GFR (MDRD) Non-Af 54 (>60) L 02/01/20 08:50 Glucose 190 mg/dL (65-99) H 02/01/20 08:50 Lactic Acid 1.5 mmol/L (0.4-2.0) 01/29/20 22:04 Calcium 8.8 mg/dL (8.5-10.1) 02/01/20 08:50 Corrected Calcium 10.2 mg/dL (8.5-10.1) H 02/01/20 08:50 Phosphorus 2.8 mg/dL (2.6-4.7) 01/30/20 04:20 Magnesium 2.2 mg/dL (1.7-2.9) 01/31/20 06:40 Total Bilirubin 0.30 mg/dL (0.2-1.0) 02/01/20 08:50 AST 19 Units/L (15-37) 02/01/20 08:50 ALT 15 Units/L (12-78) 02/01/20 08:50 Alkaline Phosphatase 55 Units/L (46-116) 02/01/20 08:50 Creatine Kinase 328 Units/L (26-192) H 01/29/20 22:04 CK-MB (CK-2) 2.4 ng/mL (0-4.0) 01/29/20 22:04 CK/CKMB % Calc 0.7 % (<4) 01/29/20 22:04 Troponin I < 0.02 ng/mL (0-1.5) 01/29/20 22:04 Total Protein 6.8 g/dL (6.4-8.2) 02/01/20 08:50 Albumin 2.3 g/dL (3.4-5.0) L 02/01/20 08:50 Globulin 4.5 g/dL (2.5-4.5) 02/01/20 08:50 Albumin/Globulin Ratio 0.5 Ratio (1.1-2.1) L 02/01/20 08:50 Prealbumin 13.4 mg/dL (18-35.7) L 01/30/20 04:20 Specimen Type Catherized urine 01/30/20 00:50 Urine Color Yellow (YELLOW) 01/30/20 00:50 Urine Appearance Cloudy (CLEAR) 01/30/20 00:50 Urine pH 6.0 (5.0 - 8.0) 01/30/20 00:50 Ur Specific [place] 1.020 (1.000-1.030) 01/30/20 00:50 Urine Protein 2+ (NEGATIVE) 01/30/20 00:50 Urine Glucose (UA) Negative (NEGATIVE) 01/30/20 00:50 Urine Ketones Negative (NEGATIVE) 01/30/20 00:50 Urine Occult Blood 2+ (NEGATIVE) 01/30/20 00:50 Urine Nitrite Positive (NEGATIVE) 07/10/20 00:50 Urine Bilirubin Negative (NEGATIVE) 01/30/20 00:50 Urine Urobilinogen Normal (NORMAL) 01/30/20 00:50 Ur Leukocyte Esterase 1+ (NEGATIVE) 01/30/20 00:50 Urine RBC 3-5 /HPF (0-3) A 01/30/20 00:50 Urine WBC Tntc /HPF (0-5) A 01/30/20 00:50 Ur Squamous Epith Cells Rare /HPF (NEGATIVE) 01/30/20 00:50 Urine Bacteria 2+ /HPF (NEGATIVE) 01/30/20 00:50 Ur Culture Indicated? Yes/culture set up 01/30/20 00:50 SARS-CoV-2 (PCR) Negative (NEGATIVE) 01/30/20 02:10 Tissue Pathology To follow 01/30/20 10:00 Plan (1) AMS (altered mental status): Status: Acute Plan: ADMIT, R/O COVID 19 SEPSIS RAPID SWAB NEGATIVE IN ER WOUND CULTURE, WOUND CONSULT, IV ATBX RESP THERAPY, SPUTUM, BLOOD AND URINE CULTURE IV HYDRATION, DALEY CATH WITH STRICT I&OS OCCULT STOOL, VERIFY HOME MEDICATION, SUPPLEMENTAL O2 CASEMANAGEMENT CONSULT FOR FUTURE CARE HOME PLACEMENT (2) Aspiration pneumonia: Status: Acute Qualifiers: Aspiration pneumonia type: unspecified Laterality: right Lung location: middle lobe of lung Qualified Code(s): J69.0 - Pneumonitis due to inhalation of food and vomit (3) Urinary tract infection: Status: Acute Qualifiers: Hematuria presence: with hematuria Urinary tract infection type: site unspecified Qualified Code(s): N39.0 - Urinary tract infection, site not specified; R31.9 - Hematuria, unspecified (4) Decubitus ulcer: Status: Acute Qualifiers: Pressure injury location: sacral region Pressure injury stage: unspecified pressure injury stage Qualified Code(s): L89.159 - Pressure ulcer of sacral region, unspecified stage
[2020-02-01] MEDS: NS 1000 ML 1,000 ML IV SCH (12:11)
[2020-02-01] MEDS: NORCO 7.5/325 MG TAB PO PRN ×2 (13:14→20:41)
--- NOTE | 2020-02-01 14:34 | RAD ---
HISTORYPNEUMONIASTUDYCHEST, 1 VIEWCOMPARISONJuly 2019FINDINGSThe trachea is midline. The cardiac silhouette is unremarkable . The lungs demonstrate some worsening density in the right medial lung base suggesting developing pneumonia.. The bony thorax is unremarkable.IMPRESSIONWorsening opacity the right medial lung base suggesting developing pneumonia.Electronically signed by: ISABELLE MONTENEGRO (Feb 01, 2020 14:33:08)
[2020-02-01] MEDS: LIPITOR TAB 20 MG PO SCH (20:41)
[2020-02-02] MEDS: NS 1000 ML 1,000 ML IV SCH ×2 (02:46→16:37)
[2020-02-02] MEDS: ZOSYN VIAL 2.25 GRAMS 2.25 G in NS 100 ML IV + SPIKE MINIBAG* 100 ML IV SCH ×4 (02:46→21:00)
[2020-02-02] MEDS: NORCO 7.5/325 MG TAB PO PRN ×3 (02:46→21:21)
[2020-02-02 06:23] LABS: BASOPHILS # (AUTO) 0.1 X10^3/uL (0.0-0.1); BASOPHILS % (AUTO) 0.8 % (0.2-1.0); EOSINOPHILS # (AUTO) 0.1 x10^3/uL (0.0-0.2); EOSINOPHILS % (AUTO) 1.3 % (0.9-2.9); HEMATOCRIT 32.9 % (36.0-47.0); LYMPHOCYTES # (AUTO) 2.4 X10^3/uL (1.3-2.9); LYMPHOCYTES % (AUTO) 24.7 % (21.0-51.0); MEAN CORPUSCULAR HEMOGLOBIN 29.9 pg (27.0-34.0); MEAN CORPUSCULAR HGB CONC 33.5 g/dL (33.0-35.0); MEAN CORPUSCULAR VOLUME 89.2 fL (80.0-100.0); MEAN PLATELET VOLUME 8.6 fL (7.4-11.0); MONOCYTES # (AUTO) 0.5 x10^3/uL (0.3-0.8); MONOCYTES % (AUTO) 5.4 % (0.0-13.0); NEUTROPHILS # (AUTO) 6.5 x10^3/uL (2.2-4.8); NEUTROPHILS % (AUTO) 67.8 % (42.0-75.0); PLATELET COUNT 295 X10^3/uL (150.0-450.0); RED BLOOD COUNT 3.68 X10^6/uL (3.5-5.4); RED CELL DISTRIBUTION WIDTH 15.6 % (11.6-16.5); WHITE BLOOD COUNT 9.6 X10^3/uL (3.6-10.0)
[2020-02-02 06:44] LABS: ALANINE AMINOTRANSFERASE 18 Units/L (12-78); ALBUMIN 2.2 g/dL (3.4-5.0); ALKALINE PHOSPHATASE 54 Units/L (46-116); ASPARTATE AMINO TRANSFERASE 24 Units/L (15-37); BLOOD UREA NITROGEN 7 mg/dL (7-18); CALCIUM 8.5 mg/dL (8.5-10.1); CARBON DIOXIDE 23.7 mmol/L (21-32); CHLORIDE 105 mmol/L (98-107); COR CA(FOR HYPOALB) 9.9 mg/dL (8.5-10.1); CREATININE 0.88 mg/dL (0.55-1.02); SODIUM 139 mmol/L (136-145); TOTAL PROTEIN 6.5 g/dL (6.4-8.2); eGFR NON BLACK RACES > 60 (>60)
[2020-02-02] MEDS ORDERED: ZESTRIL TAB 20 MG ONE ×2 (07:44→20:54)
[2020-02-02] MEDS: PREVACID PO SCH (08:12)
[2020-02-02] MEDS: XARELTO PO SCH (08:12)
[2020-02-02] MEDS: ASPIRIN EC 81 MG PO SCH (08:12)
[2020-02-02] MEDS: SINGULAIR TAB 10 MG PO SCH (08:12)
[2020-02-02] MEDS: MEGACE PO SCH ×2 (08:12→21:21)
[2020-02-02] MEDS: K-DUR TAB 20 MEQ PO PRN (08:12)
[2020-02-02] MEDS: TOPROL XL PO SCH (08:13)
[2020-02-02] MEDS: ZESTRIL TAB 20 MG PO SCH ×2 (08:13→21:21)
[2020-02-02] MEDS: CORDARONE TAB 200 MG PO SCH (08:14)
[2020-02-02] MEDS: PLAVIX PO SCH (08:14)
[2020-02-02 09:43] LABS: BILIRUBIN,URINE NEGATIVE (NEGATIVE); BLOOD/HEMOGLOBIN,URINE 1+ (NEGATIVE); GLUCOSE, URINE 1+ (NEGATIVE); KETONES,URINE NEGATIVE (NEGATIVE); LEUKOCYTE ESTERASE ,URINE 1+ (NEGATIVE); NITRITES,URINE NEGATIVE (NEGATIVE); PROTEIN,URINE 3+ (NEGATIVE); UROBILINOGEN,URINE 1+ (NORMAL)
[2020-02-02 09:52] LABS: APPEARANCE,URINE HAZY (CLEAR); BACTERIA,URINE NEGATIVE /HPF (NEGATIVE); COLOR,URINE YELLOW (YELLOW); RBC,URINE 0-2 /HPF (0-3); SQUAMOUS EPITHELIAL CELL,UR NEGATIVE /HPF (NEGATIVE)
[2020-02-02] MEDS: LIPITOR TAB 20 MG PO SCH (21:20)
--- NOTE | 2020-02-02 22:07 | PCM.PROG ---
Progress Note - Progress Note for Day of Date of Exam: 02/02/20 - Subjective Subjective: Pt is a 75 yo WF admitted for AMS, UTI, COVID/Sepsis r/o, Decubitus ulcer. BloodCx NGTD. CXR: Hazy opacities at the medial right lung base, which may represent atelectasis or infiltrates. COVID negative. Sacral wound followed by surgery-Dr Campos, cultures positive for E.coli. Patient states she is doing better. Patient denies having weakness. Sattes that her heart does go in and out of A FIb. Denies any complaints at this time. - Past Medical Family Social History Past Med/Fam/Surg Hx: No changes since H&P Allergies: Allergies No Known Drug Allergies Allergy (Verified 01/23/20 18:03) - Review of Systems ROS: No change since H&P - Vital Signs and I&O's Vital Signs: Temperature 97.7 F Pulse Rate [Left Radial] 89 Pulse Rate 89 Respiratory Rate 20 Blood Pressure [Right Arm] 187/96 Blood Pressure [Left Arm] 165/90 Blood Pressure 151/93 O2 Sat by Pulse Oximetry 98 Intake and Output: Intake & Output 01/30/20 01/31/20 02/01/20 02/02/20 23:59 23:59 23:59 23:59 Intake Total 1770 / 1770 1300 / 1300 1840 / 1840 1480 / 1480 Output Total 800 / 800 1325 / 1325 2500 / 2500 3100 / 3100 Balance 970 / 970 -25 / -25 -660 / -660 -1620 / -1620 - Physical Exam Oriented: Person Eyes: Normal Ear: Normal Nose: Normal Throat: Dry Respiratory: Diminished Cardiovascular: Irregular : Dysuria Auscultation: Bowel Sounds: Normal Palpation: Normal Tenderness: Normal Skin: Decreased Turgur, Wound (SACRAL DECUBITUS) Musculoskeletal: Motor Deficit, Instability Psychiatric: Anxiety Mood Description: Calm Affect: Anxious, Flat Speech Pattern: Clear - Laboratory and Diagnostics Result Diagrams: 02/02/20 05:55 02/02/20 05:55 Labs: 01/30/20 03:55 Coccyx Gram Stain - Final 01/30/20 03:55 Coccyx Wound Culture - Final Escherichia Coli 01/30/20 04:20 Blood Blood Culture - Preliminary 01/30/20 04:20 Blood Blood Culture - Preliminary 01/30/20 00:50 Urine,Catheterized Urine Culture - Final Laboratory WBC 9.6 X10^3/uL (3.6-10.0) 02/02/20 05:55 RBC 3.68 X10^6/uL (3.5-5.4) 02/02/20 05:55 Hgb 11.0 g/dL (12.0-16.0) L 02/02/20 05:55 Hct 32.9 % (36.0-47.0) L 02/02/20 05:55 MCV 89.2 fL (80.0-100.0) 02/02/20 05:55 MCH 29.9 pg (27.0-34.0) 02/02/20 05:55 MCHC 33.5 g/dL (33.0-35.0) 02/02/20 05:55 RDW 15.6 % (11.6-16.5) 02/02/20 05:55 Plt Count 295 X10^3/uL (150.0-450.0) 02/02/20 05:55 MPV 8.6 fL (7.4-11.0) 02/02/20 05:55 Neut % (Auto) 67.8 % (42.0-75.0) 02/02/20 05:55 Lymph % (Auto) 24.7 % (21.0-51.0) 02/02/20 05:55 [place] % (Auto) 5.4 % (0.0-13.0) 02/02/20 05:55 Eos % (Auto) 1.3 % (0.9-2.9) 02/02/20 05:55 Baso % (Auto) 0.8 % (0.2-1.0) 02/02/20 05:55 Neut # (Auto) 6.5 x10^3/uL (2.2-4.8) H 02/02/20 05:55 Lymph # (Auto) 2.4 X10^3/uL (1.3-2.9) 02/02/20 05:55 [place] # (Auto) 0.5 x10^3/uL (0.3-0.8) 02/02/20 05:55 Eos # (Auto) 0.1 x10^3/uL (0.0-0.2) 02/02/20 05:55 Baso # (Auto) 0.1 X10^3/uL (0.0-0.1) 02/02/20 05:55 Absolute Nucleated RBC 0.0 /100WBC 02/02/20 05:55 PT 20.6 SECONDS (11.8-14.3) 01/29/20 21:45 INR Target Range - 01/29/20 21:45 INR 1.83 (0.8-1.3) H 01/29/20 21:45 APTT 28.9 SECONDS (22.9-36.5) 01/29/20 21:45 PTT Comment - 01/29/20 21:45 Sodium 139 mmol/L (136-145) 02/02/20 05:55 Corrected Sodium TNP 02/02/20 05:55 Potassium 3.4 mmol/L (3.5-5.1) L 02/02/20 05:55 Chloride 105 mmol/L (98-107) 02/02/20 05:55 Carbon Dioxide 23.7 mmol/L (21-32) 02/02/20 05:55 BUN 7 mg/dL (7-18) 02/02/20 05:55 Creatinine 0.88 mg/dL (0.55-1.02) 02/02/20 05:55 Est GFR (MDRD) Af Amer > 60 (>60) 02/02/20 05:55 Est GFR (MDRD) Non-Af > 60 (>60) 02/02/20 05:55 Glucose 102 mg/dL (65-99) H 02/02/20 05:55 Lactic Acid 1.5 mmol/L (0.4-2.0) 01/29/20 22:04 Calcium 8.5 mg/dL (8.5-10.1) 02/02/20 05:55 Corrected Calcium 9.9 mg/dL (8.5-10.1) 02/02/20 05:55 Phosphorus 2.8 mg/dL (2.6-4.7) 01/30/20 04:20 Magnesium 2.2 mg/dL (1.7-2.9) 01/31/20 06:40 Total Bilirubin 0.20 mg/dL (0.2-1.0) 02/02/20 05:55 AST 24 Units/L (15-37) 02/02/20 05:55 ALT 18 Units/L (12-78) 02/02/20 05:55 Alkaline Phosphatase 54 Units/L (46-116) 02/02/20 05:55 Creatine Kinase 328 Units/L (26-192) H 01/29/20 22:04 CK-MB (CK-2) 2.4 ng/mL (0-4.0) 01/29/20 22:04 CK/CKMB % Calc 0.7 % (<4) 01/29/20 22:04 Troponin I < 0.02 ng/mL (0-1.5) 01/29/20 22:04 Total Protein 6.5 g/dL (6.4-8.2) 02/02/20 05:55 Albumin 2.2 g/dL (3.4-5.0) L 02/02/20 05:55 Globulin 4.3 g/dL (2.5-4.5) 02/02/20 05:55 Albumin/Globulin Ratio 0.5 Ratio (1.1-2.1) L 02/02/20 05:55 Prealbumin 13.4 mg/dL (18-35.7) L 01/30/20 04:20 Specimen Type Catherized urine 02/02/20 09:12 Urine Color Yellow (YELLOW) 02/02/20 09:12 Urine Appearance Hazy (CLEAR) 02/02/20 09:12 Urine pH 6.0 (5.0 - 8.0) 02/02/20 09:12 Ur Specific [place] 1.010 (1.000-1.030) 02/02/20 09:12 Urine Protein 3+ (NEGATIVE) 02/02/20 09:12 Urine Glucose (UA) 1+ (NEGATIVE) 02/02/20 09:12 Urine Ketones Negative (NEGATIVE) 02/02/20 09:12 Urine Occult Blood 1+ (NEGATIVE) 02/02/20 09:12 Urine Nitrite Negative (NEGATIVE) 02/02/20 09:12 Urine Bilirubin Negative (NEGATIVE) 02/02/20 09:12 Urine Urobilinogen 1+ (NORMAL) 02/02/20 09:12 Ur Leukocyte Esterase 1+ (NEGATIVE) 02/02/20 09:12 Urine RBC 0-2 /HPF (0-3) 02/02/20 09:12 Urine WBC 0-2 /HPF (0-5) 02/02/20 09:12 Ur Squamous Epith Cells Negative /HPF (NEGATIVE) 02/02/20 09:12 Urine Bacteria Negative /HPF (NEGATIVE) 02/02/20 09:12 Ur Culture Indicated? No/not indicated 02/02/20 09:12 SARS-CoV-2 (PCR) Negative (NEGATIVE) 01/30/20 02:10 Tissue Pathology To follow 01/30/20 10:00 - Plan (1) Aspiration pneumonia Status: Acute Qualifiers: Aspiration pneumonia type: unspecified Laterality: right Lung location: middle lobe of lung Qualified Code(s): J69.0 - Pneumonitis due to inhalation of food and vomit Plan: Continue antibiotics. Deep Breathes. (2) Urinary tract infection Status: Acute Qualifiers: Urinary tract infection type: site unspecified Hematuria presence: with hematuria Qualified Code(s): N39.0 - Urinary tract infection, site not specified; R31.9 - Hematuria, unspecified Plan: Zosyn IV (3) Decubitus ulcer Status: Acute Qualifiers: Pressure injury location: sacral region Pressure injury stage: unspecified pressure injury stage Qualified Code(s): L89.159 - Pressure ulcer of sacral region, unspecified stage Plan: Dr Dudley. Zosyn IVPB (4) Physical deconditioning Status: Acute Plan: Physical Therapy. NH placement pendng. (5) Underweight due to inadequate caloric intake Status: Acute Plan: Encourage appetite (6) Paroxysmal atrial fibrillation Status: Acute Plan: Monitor heart rate
[2020-02-03] MEDS: TYLENOL 325 MG TAB PO PRN (02:03)
[2020-02-03] MEDS: ZOSYN VIAL 2.25 GRAMS 2.25 G in NS 100 ML IV + SPIKE MINIBAG* 100 ML IV SCH ×4 (02:04→21:19)
[2020-02-03 06:07] LABS: ALANINE AMINOTRANSFERASE 18 Units/L (12-78); ALBUMIN 2.4 g/dL (3.4-5.0); ALKALINE PHOSPHATASE 57 Units/L (46-116); ASPARTATE AMINO TRANSFERASE 20 Units/L (15-37); BLOOD UREA NITROGEN 9 mg/dL (7-18); CALCIUM 8.8 mg/dL (8.5-10.1); CARBON DIOXIDE 24.9 mmol/L (21-32); CHLORIDE 102 mmol/L (98-107); COR CA(FOR HYPOALB) 10.1 mg/dL (8.5-10.1); CREATININE 0.76 mg/dL (0.55-1.02); SODIUM 136 mmol/L (136-145); TOTAL PROTEIN 6.6 g/dL (6.4-8.2); eGFR NON BLACK RACES > 60 (>60)
[2020-02-03 06:09] LABS: BASOPHILS # (AUTO) 0.1 X10^3/uL (0.0-0.1); BASOPHILS % (AUTO) 0.6 % (0.2-1.0); EOSINOPHILS # (AUTO) 0.1 x10^3/uL (0.0-0.2); EOSINOPHILS % (AUTO) 0.7 % (0.9-2.9); HEMATOCRIT 34.2 % (36.0-47.0); HEMOGLOBIN 11.2 g/dL (12.0-16.0); LYMPHOCYTES # (AUTO) 2.5 X10^3/uL (1.3-2.9); LYMPHOCYTES % (AUTO) 24.8 % (21.0-51.0); MEAN CORPUSCULAR HEMOGLOBIN 29.4 pg (27.0-34.0); MEAN CORPUSCULAR HGB CONC 32.9 g/dL (33.0-35.0); MEAN CORPUSCULAR VOLUME 89.6 fL (80.0-100.0); MEAN PLATELET VOLUME 8.9 fL (7.4-11.0); MONOCYTES # (AUTO) 0.5 x10^3/uL (0.3-0.8); MONOCYTES % (AUTO) 5.2 % (0.0-13.0); NEUTROPHILS # (AUTO) 6.9 x10^3/uL (2.2-4.8); NEUTROPHILS % (AUTO) 68.7 % (42.0-75.0); PLATELET COUNT 336 X10^3/uL (150.0-450.0); RED BLOOD COUNT 3.82 X10^6/uL (3.5-5.4); RED CELL DISTRIBUTION WIDTH 15.7 % (11.6-16.5)
[2020-02-03] MEDS: NS 1000 ML 1,000 ML IV SCH ×2 (06:12→20:07)
[2020-02-03] MEDS ORDERED: ZESTRIL TAB 20 MG ONE ×2 (08:43→20:30)
[2020-02-03] MEDS: SINGULAIR TAB 10 MG PO SCH (08:57)
[2020-02-03] MEDS: MEGACE PO SCH ×2 (08:57→21:20)
[2020-02-03] MEDS: PREVACID PO SCH (08:57)
[2020-02-03] MEDS: TOPROL XL PO SCH (08:57)
[2020-02-03] MEDS: ASPIRIN EC 81 MG PO SCH (08:57)
[2020-02-03] MEDS: XARELTO PO SCH (08:57)
[2020-02-03] MEDS: CORDARONE TAB 200 MG PO SCH (08:57)
[2020-02-03] MEDS: ZESTRIL TAB 20 MG PO SCH ×2 (08:58→21:20)
[2020-02-03] MEDS: PLAVIX PO SCH (08:58)
[2020-02-03 09:02] LABS: CKMB % 2.8 % (<4); CREATINE KINASE 46 Units/L (26-192); CREATINE KINASE MB 1.3 ng/mL (0-4.0); TROPONIN I < 0.02 ng/mL (0-1.5)
[2020-02-03] MEDS ORDERED: TOPROL XL PO ONE ×2 (09:06→11:42)
[2020-02-03] MEDS ORDERED: ZOFRAN INJ 4 MG VIAL ONE (12:52)
[2020-02-03] MEDS: ZOFRAN INJ 4 MG VIAL IV PRN (12:55)
--- NOTE | 2020-02-03 13:26 | DR.PROGNOT ---
Hospital Progress Notes - Progress Note for Day of: Progress Note Date: 02/03/20 - Chief Complaint Chief Complaint: wound vac in place and working well . - Past Medical Family Social History Past Med/Fam/Surg Hx: No changes since H&P Allergies: Allergies No Known Drug Allergies Allergy (Verified 01/23/20 18:03) - Review Of Systems ROS: No change since H&P - Vital Signs Vital Signs: Temperature 98.1 F Pulse Rate [Left Radial] 103 Pulse Rate 102 Respiratory Rate 18 Blood Pressure [Right Arm] 169/110 Blood Pressure [Left Arm] 165/90 Blood Pressure 151/93 O2 Sat by Pulse Oximetry 96 - Physical Exam Oriented: Person Eyes: Normal Ear: Normal Nose: Normal Throat: Dry Respiratory: Diminished Cardiovascular: Irregular : Dysuria GI:Auscultation: Normal GI:Palpation: Normal GI: Tenderness: Normal Skin: Decreased Turgur, Wound (sacral ulcer is covered with the wound vac with good seal and suction .. mild erythema around the edges . no necrosis or abscesses ) Musculoskeletal: Motor Deficit, Instability Psychiatric: Anxiety Mood Description: Calm Affect: Anxious, Flat Speech Pattern: Clear - Laboratory and Diagnostics Result Diagrams: 02/03/20 05:15 02/03/20 05:15 Labs: 02/02/20 09:12 Urine,Clean Catch Urine Culture - Preliminary 01/30/20 03:55 Coccyx Gram Stain - Final 01/30/20 03:55 Coccyx Wound Culture - Final Escherichia Coli 01/30/20 04:20 Blood Blood Culture - Preliminary 01/30/20 04:20 Blood Blood Culture - Preliminary 01/30/20 00:50 Urine,Catheterized Urine Culture - Final Laboratory WBC 10.0 X10^3/uL (3.6-10.0) 02/03/20 05:15 RBC 3.82 X10^6/uL (3.5-5.4) 02/03/20 05:15 Hgb 11.2 g/dL (12.0-16.0) L 02/03/20 05:15 Hct 34.2 % (36.0-47.0) L 02/03/20 05:15 MCV 89.6 fL (80.0-100.0) 02/03/20 05:15 MCH 29.4 pg (27.0-34.0) 02/03/20 05:15 MCHC 32.9 g/dL (33.0-35.0) L 02/03/20 05:15 RDW 15.7 % (11.6-16.5) 02/03/20 05:15 Plt Count 336 X10^3/uL (150.0-450.0) 02/03/20 05:15 MPV 8.9 fL (7.4-11.0) 02/03/20 05:15 Neut % (Auto) 68.7 % (42.0-75.0) 02/03/20 05:15 Lymph % (Auto) 24.8 % (21.0-51.0) 02/03/20 05:15 [place] % (Auto) 5.2 % (0.0-13.0) 02/03/20 05:15 Eos % (Auto) 0.7 % (0.9-2.9) L 02/03/20 05:15 Baso % (Auto) 0.6 % (0.2-1.0) 02/03/20 05:15 Neut # (Auto) 6.9 x10^3/uL (2.2-4.8) H 02/03/20 05:15 Lymph # (Auto) 2.5 X10^3/uL (1.3-2.9) 02/03/20 05:15 [place] # (Auto) 0.5 x10^3/uL (0.3-0.8) 02/03/20 05:15 Eos # (Auto) 0.1 x10^3/uL (0.0-0.2) 02/03/20 05:15 Baso # (Auto) 0.1 X10^3/uL (0.0-0.1) 02/03/20 05:15 Absolute Nucleated RBC 0.0 /100WBC 02/03/20 05:15 PT 20.6 SECONDS (11.8-14.3) 01/29/20 21:45 INR Target Range - 01/29/20 21:45 INR 1.83 (0.8-1.3) H 01/29/20 21:45 APTT 28.9 SECONDS (22.9-36.5) 01/29/20 21:45 PTT Comment - 01/29/20 21:45 Sodium 136 mmol/L (136-145) 02/03/20 05:15 Corrected Sodium TNP 02/03/20 05:15 Potassium 3.5 mmol/L (3.5-5.1) 02/03/20 05:15 Chloride 102 mmol/L (98-107) 02/03/20 05:15 Carbon Dioxide 24.9 mmol/L (21-32) 02/03/20 05:15 BUN 9 mg/dL (7-18) 02/03/20 05:15 Creatinine 0.76 mg/dL (0.55-1.02) 02/03/20 05:15 Est GFR (MDRD) Af Amer > 60 (>60) 02/03/20 05:15 Est GFR (MDRD) Non-Af > 60 (>60) 02/03/20 05:15 Glucose 85 mg/dL (65-99) 02/03/20 05:15 Lactic Acid 1.5 mmol/L (0.4-2.0) 01/29/20 22:04 Calcium 8.8 mg/dL (8.5-10.1) 02/03/20 05:15 Corrected Calcium 10.1 mg/dL (8.5-10.1) 02/03/20 05:15 Phosphorus 2.8 mg/dL (2.6-4.7) 01/30/20 04:20 Magnesium 2.2 mg/dL (1.7-2.9) 01/31/20 06:40 Total Bilirubin 0.40 mg/dL (0.2-1.0) 02/03/20 05:15 AST 20 Units/L (15-37) 02/03/20 05:15 ALT 18 Units/L (12-78) 02/03/20 05:15 Alkaline Phosphatase 57 Units/L (46-116) 02/03/20 05:15 Creatine Kinase 46 Units/L (26-192) 02/03/20 08:10 CK-MB (CK-2) 1.3 ng/mL (0-4.0) 02/03/20 08:10 CK/CKMB % Calc 2.8 % (<4) 02/03/20 08:10 Troponin I < 0.02 ng/mL (0-1.5) 02/03/20 08:10 Total Protein 6.6 g/dL (6.4-8.2) 02/03/20 05:15 Albumin 2.4 g/dL (3.4-5.0) L 02/03/20 05:15 Globulin 4.2 g/dL (2.5-4.5) 02/03/20 05:15 Albumin/Globulin Ratio 0.6 Ratio (1.1-2.1) L 02/03/20 05:15 Prealbumin 13.4 mg/dL (18-35.7) L 01/30/20 04:20 Specimen Type Catherized urine 02/02/20 09:12 Urine Color Yellow (YELLOW) 02/02/20 09:12 Urine Appearance Hazy (CLEAR) 02/02/20 09:12 Urine pH 6.0 (5.0 - 8.0) 02/02/20 09:12 Ur Specific [place] 1.010 (1.000-1.030) 02/02/20 09:12 Urine Protein 3+ (NEGATIVE) 02/02/20 09:12 Urine Glucose (UA) 1+ (NEGATIVE) 02/02/20 09:12 Urine Ketones Negative (NEGATIVE) 02/02/20 09:12 Urine Occult Blood 1+ (NEGATIVE) 02/02/20 09:12 Urine Nitrite Negative (NEGATIVE) 02/02/20 09:12 Urine Bilirubin Negative (NEGATIVE) 02/02/20 09:12 Urine Urobilinogen 1+ (NORMAL) 02/02/20 09:12 Ur Leukocyte Esterase 1+ (NEGATIVE) 02/02/20 09:12 Urine RBC 0-2 /HPF (0-3) 02/02/20 09:12 Urine WBC 0-2 /HPF (0-5) 02/02/20 09:12 Ur Squamous Epith Cells Negative /HPF (NEGATIVE) 02/02/20 09:12 Urine Bacteria Negative /HPF (NEGATIVE) 02/02/20 09:12 Ur Culture Indicated? No/not indicated 02/02/20 09:12 SARS-CoV-2 (PCR) Negative (NEGATIVE) 01/30/20 02:10 Tissue Pathology To follow 01/30/20 10:00 - Assessment and Plan 1: large stage lV sacral ulcer . s/p debridement and placement of wound vac . pt is stable and could be followed as out Pt to inspect the ulcer for further debridement as needed . - Problem Patient Problems: Patient Problems Aspiration pneumonia (Acute) J69.0 Urinary tract infection (Acute) N39.0 AMS (altered mental status) (Acute) R41.82 Paroxysmal atrial fibrillation (Acute) I48.0 Physical deconditioning (Acute) R53.81 Underweight due to inadequate caloric intake (Acute) R63.6
[2020-02-03] MEDS: NORCO 7.5/325 MG TAB PO PRN (18:34)
[2020-02-03] MEDS: LIPITOR TAB 20 MG PO SCH (21:19)
--- NOTE | 2020-02-03 21:54 | PCM.PROG ---
Progress Note - Progress Note for Day of Date of Exam: 02/03/20 - Subjective Subjective: Pt is a 75 yo WF admitted for AMS, UTI, COVID/Sepsis r/o, Decubitus ulcer. BloodCx NGTD. CXR: Hazy opacities at the medial right lung base, which may represent atelectasis or infiltrates. COVID negative. Sacral wound followed by surgery-Dr Campos, cultures positive for E.coli. Patient states she is doing better. Patient denies having weakness. Sattes that her heart does go in and out of A FIb. Denies any complaints at this time. - Past Medical Family Social History Past Med/Fam/Surg Hx: No changes since H&P Allergies: Allergies No Known Drug Allergies Allergy (Verified 01/23/20 18:03) - Review of Systems ROS: No change since H&P - Vital Signs and I&O's Vital Signs: Temperature 99.1 F Pulse Rate [Left Radial] 70 Pulse Rate 102 Respiratory Rate 18 Blood Pressure [Right Arm] 140/81 Blood Pressure [Left Arm] 165/90 Blood Pressure 151/93 O2 Sat by Pulse Oximetry 98 Intake and Output: Intake & Output 01/31/20 02/01/20 02/02/20 02/03/20 23:59 23:59 23:59 23:59 Intake Total 1300 / 1300 1840 / 1840 2320 / 2320 1075 / 1075 Output Total 1325 / 1325 2500 / 2500 3900 / 3900 1200 / 1200 Balance -25 / -25 -660 / -660 -1580 / -1580 -125 / -125 - Physical Exam Oriented: Person Eyes: Normal Ear: Normal Nose: Normal Throat: Dry Respiratory: Diminished Cardiovascular: Irregular : Dysuria Auscultation: Bowel Sounds: Normal Tenderness: Normal Skin: Wound (sacral ulcer is covered with the wound vac wound vac to sacral decubitus) Musculoskeletal: Motor Deficit, Instability Psychiatric: Anxiety Mood Description: Calm Affect: Anxious, Flat Speech Pattern: Clear - Laboratory and Diagnostics Result Diagrams: 02/03/20 05:15 02/03/20 05:15 Labs: 02/02/20 09:12 Urine,Clean Catch Urine Culture - Preliminary 01/30/20 03:55 Coccyx Gram Stain - Final 01/30/20 03:55 Coccyx Wound Culture - Final Escherichia Coli 01/30/20 04:20 Blood Blood Culture - Preliminary 01/30/20 04:20 Blood Blood Culture - Preliminary 01/30/20 00:50 Urine,Catheterized Urine Culture - Final Laboratory WBC 10.0 X10^3/uL (3.6-10.0) 02/03/20 05:15 RBC 3.82 X10^6/uL (3.5-5.4) 02/03/20 05:15 Hgb 11.2 g/dL (12.0-16.0) L 02/03/20 05:15 Hct 34.2 % (36.0-47.0) L 02/03/20 05:15 MCV 89.6 fL (80.0-100.0) 02/03/20 05:15 MCH 29.4 pg (27.0-34.0) 02/03/20 05:15 MCHC 32.9 g/dL (33.0-35.0) L 02/03/20 05:15 RDW 15.7 % (11.6-16.5) 02/03/20 05:15 Plt Count 336 X10^3/uL (150.0-450.0) 02/03/20 05:15 MPV 8.9 fL (7.4-11.0) 02/03/20 05:15 Neut % (Auto) 68.7 % (42.0-75.0) 02/03/20 05:15 Lymph % (Auto) 24.8 % (21.0-51.0) 02/03/20 05:15 [place] % (Auto) 5.2 % (0.0-13.0) 02/03/20 05:15 Eos % (Auto) 0.7 % (0.9-2.9) L 02/03/20 05:15 Baso % (Auto) 0.6 % (0.2-1.0) 02/03/20 05:15 Neut # (Auto) 6.9 x10^3/uL (2.2-4.8) H 02/03/20 05:15 Lymph # (Auto) 2.5 X10^3/uL (1.3-2.9) 02/03/20 05:15 [place] # (Auto) 0.5 x10^3/uL (0.3-0.8) 02/03/20 05:15 Eos # (Auto) 0.1 x10^3/uL (0.0-0.2) 02/03/20 05:15 Baso # (Auto) 0.1 X10^3/uL (0.0-0.1) 02/03/20 05:15 Absolute Nucleated RBC 0.0 /100WBC 02/03/20 05:15 PT 20.6 SECONDS (11.8-14.3) 01/29/20 21:45 INR Target Range - 01/29/20 21:45 INR 1.83 (0.8-1.3) H 01/29/20 21:45 APTT 28.9 SECONDS (22.9-36.5) 01/29/20 21:45 PTT Comment - 01/29/20 21:45 Sodium 136 mmol/L (136-145) 02/03/20 05:15 Corrected Sodium TNP 02/03/20 05:15 Potassium 3.5 mmol/L (3.5-5.1) 02/03/20 05:15 Chloride 102 mmol/L (98-107) 02/03/20 05:15 Carbon Dioxide 24.9 mmol/L (21-32) 02/03/20 05:15 BUN 9 mg/dL (7-18) 02/03/20 05:15 Creatinine 0.76 mg/dL (0.55-1.02) 02/03/20 05:15 Est GFR (MDRD) Af Amer > 60 (>60) 02/03/20 05:15 Est GFR (MDRD) Non-Af > 60 (>60) 02/03/20 05:15 Glucose 85 mg/dL (65-99) 02/03/20 05:15 Lactic Acid 1.5 mmol/L (0.4-2.0) 01/29/20 22:04 Calcium 8.8 mg/dL (8.5-10.1) 02/03/20 05:15 Corrected Calcium 10.1 mg/dL (8.5-10.1) 02/03/20 05:15 Phosphorus 2.8 mg/dL (2.6-4.7) 01/30/20 04:20 Magnesium 2.2 mg/dL (1.7-2.9) 01/31/20 06:40 Total Bilirubin 0.40 mg/dL (0.2-1.0) 02/03/20 05:15 AST 20 Units/L (15-37) 02/03/20 05:15 ALT 18 Units/L (12-78) 02/03/20 05:15 Alkaline Phosphatase 57 Units/L (46-116) 02/03/20 05:15 Creatine Kinase 46 Units/L (26-192) 02/03/20 08:10 CK-MB (CK-2) 1.3 ng/mL (0-4.0) 02/03/20 08:10 CK/CKMB % Calc 2.8 % (<4) 02/03/20 08:10 Troponin I < 0.02 ng/mL (0-1.5) 02/03/20 08:10 Total Protein 6.6 g/dL (6.4-8.2) 02/03/20 05:15 Albumin 2.4 g/dL (3.4-5.0) L 02/03/20 05:15 Globulin 4.2 g/dL (2.5-4.5) 02/03/20 05:15 Albumin/Globulin Ratio 0.6 Ratio (1.1-2.1) L 02/03/20 05:15 Prealbumin 13.4 mg/dL (18-35.7) L 01/30/20 04:20 Specimen Type Catherized urine 02/02/20 09:12 Urine Color Yellow (YELLOW) 02/02/20 09:12 Urine Appearance Hazy (CLEAR) 02/02/20 09:12 Urine pH 6.0 (5.0 - 8.0) 02/02/20 09:12 Ur Specific [place] 1.010 (1.000-1.030) 02/02/20 09:12 Urine Protein 3+ (NEGATIVE) 02/02/20 09:12 Urine Glucose (UA) 1+ (NEGATIVE) 02/02/20 09:12 Urine Ketones Negative (NEGATIVE) 02/02/20 09:12 Urine Occult Blood 1+ (NEGATIVE) 02/02/20 09:12 Urine Nitrite Negative (NEGATIVE) 02/02/20 09:12 Urine Bilirubin Negative (NEGATIVE) 02/02/20 09:12 Urine Urobilinogen 1+ (NORMAL) 02/02/20 09:12 Ur Leukocyte Esterase 1+ (NEGATIVE) 02/02/20 09:12 Urine RBC 0-2 /HPF (0-3) 02/02/20 09:12 Urine WBC 0-2 /HPF (0-5) 02/02/20 09:12 Ur Squamous Epith Cells Negative /HPF (NEGATIVE) 02/02/20 09:12 Urine Bacteria Negative /HPF (NEGATIVE) 02/02/20 09:12 Ur Culture Indicated? No/not indicated 02/02/20 09:12 SARS-CoV-2 (PCR) Negative (NEGATIVE) 01/30/20 02:10 Tissue Pathology To follow 01/30/20 10:00 - Plan (1) Aspiration pneumonia Status: Acute Qualifiers: Aspiration pneumonia type: unspecified Laterality: right Lung location: middle lobe of lung Qualified Code(s): J69.0 - Pneumonitis due to inhalation of food and vomit Plan: Continue antibiotics. Deep Breathes. (2) Urinary tract infection Status: Acute Qualifiers: Urinary tract infection type: site unspecified Hematuria presence: with hematuria Qualified Code(s): N39.0 - Urinary tract infection, site not specified; R31.9 - Hematuria, unspecified Plan: Zosyn IV (3) Decubitus ulcer Status: Inactive Qualifiers: Pressure injury location: sacral region Pressure injury stage: unspecified pressure injury stage Qualified Code(s): L89.159 - Pressure ulcer of sacral region, unspecified stage Plan: Dr Dudley. Zosyn IVPB (4) Physical deconditioning Status: Acute Plan: Physical Therapy. NH placement pendng. (5) Underweight due to inadequate caloric intake Status: Acute Plan: Encourage appetite (6) Paroxysmal atrial fibrillation Status: Acute Plan: Monitor heart rate
[2020-02-04] MEDS: ZOSYN VIAL 2.25 GRAMS 2.25 G in NS 100 ML IV + SPIKE MINIBAG* 100 ML IV SCH ×4 (03:30→20:23)
--- NOTE | 2020-02-04 05:06 | RAD ---
HISTORYPNEUMONIASTUDYCHEST, 1 [id number]/12/2020 isFINDINGSThe trachea is midline. The cardiac silhouette is unremarkable . The lungs are clear without focal infiltrate or effusion. Pulmonary vasculature within normal limits. No pneumothorax. The bony thorax is unremarkable.IMPRESSIONNo acute cardiopulmonary disease.Electronically signed by: Tha Ndiaye (Feb 04, 2020 05:04:56)
[2020-02-04] MEDS ORDERED: COLACE CAP 100 MG PO ONE (05:31)
[2020-02-04] MEDS: COLACE CAP 100 MG PO PRN ×2 (05:53→20:24)
[2020-02-04 06:04] LABS: BASOPHILS # (AUTO) 0.1 X10^3/uL (0.0-0.1); BASOPHILS % (AUTO) 0.7 % (0.2-1.0); EOSINOPHILS # (AUTO) 0.1 x10^3/uL (0.0-0.2); EOSINOPHILS % (AUTO) 0.7 % (0.9-2.9); HEMATOCRIT 33.5 % (36.0-47.0); HEMOGLOBIN 10.9 g/dL (12.0-16.0); LYMPHOCYTES # (AUTO) 1.8 X10^3/uL (1.3-2.9); LYMPHOCYTES % (AUTO) 18.3 % (21.0-51.0); MEAN CORPUSCULAR HEMOGLOBIN 29.4 pg (27.0-34.0); MEAN CORPUSCULAR HGB CONC 32.7 g/dL (33.0-35.0); MEAN CORPUSCULAR VOLUME 89.9 fL (80.0-100.0); MONOCYTES # (AUTO) 0.5 x10^3/uL (0.3-0.8); MONOCYTES % (AUTO) 5.2 % (0.0-13.0); NEUTROPHILS # (AUTO) 7.5 x10^3/uL (2.2-4.8); NEUTROPHILS % (AUTO) 75.1 % (42.0-75.0); PLATELET COUNT 341 X10^3/uL (150.0-450.0); RED BLOOD COUNT 3.72 X10^6/uL (3.5-5.4); RED CELL DISTRIBUTION WIDTH 15.6 % (11.6-16.5)
[2020-02-04 06:15] LABS: ALANINE AMINOTRANSFERASE 13 Units/L (12-78); ALBUMIN 2.4 g/dL (3.4-5.0); ALKALINE PHOSPHATASE 53 Units/L (46-116); ASPARTATE AMINO TRANSFERASE 21 Units/L (15-37); BLOOD UREA NITROGEN 10 mg/dL (7-18); CALCIUM 8.7 mg/dL (8.5-10.1); CARBON DIOXIDE 23.2 mmol/L (21-32); CHLORIDE 104 mmol/L (98-107); CREATININE 0.89 mg/dL (0.55-1.02); SODIUM 137 mmol/L (136-145); TOTAL PROTEIN 6.5 g/dL (6.4-8.2); eGFR NON BLACK RACES > 60 (>60)
[2020-02-04] MEDS: ZOFRAN INJ 4 MG VIAL IV PRN (08:16)
[2020-02-04] MEDS ORDERED: ZESTRIL TAB 20 MG ONE ×2 (08:31→20:09)
[2020-02-04] MEDS: TOPROL XL PO SCH (09:06)
[2020-02-04] MEDS: ZESTRIL TAB 20 MG PO SCH ×2 (09:07→20:24)
[2020-02-04] MEDS: PREVACID PO SCH (09:07)
[2020-02-04] MEDS: ASPIRIN EC 81 MG PO SCH (09:07)
[2020-02-04] MEDS: MEGACE PO SCH ×2 (09:07→20:24)
[2020-02-04] MEDS: SINGULAIR TAB 10 MG PO SCH (09:08)
[2020-02-04] MEDS: XARELTO PO SCH (09:08)
[2020-02-04] MEDS: CORDARONE TAB 200 MG PO SCH (09:44)
[2020-02-04] MEDS: PLAVIX PO SCH (09:44)
[2020-02-04] MEDS: NS 1000 ML 1,000 ML IV SCH (10:24)
[2020-02-04] MEDS: NORCO 7.5/325 MG TAB PO PRN (12:17)
[2020-02-04] MEDS: LIPITOR TAB 20 MG PO SCH (20:24)
[2020-02-05] MEDS: ZOSYN VIAL 2.25 GRAMS 2.25 G in NS 100 ML IV + SPIKE MINIBAG* 100 ML IV SCH ×4 (03:26→20:35)
[2020-02-05 06:14] LABS: BASOPHILS # (AUTO) 0.1 X10^3/uL (0.0-0.1); BASOPHILS % (AUTO) 0.6 % (0.2-1.0); EOSINOPHILS % (AUTO) 0.1 % (0.9-2.9); HEMOGLOBIN 11.6 g/dL (12.0-16.0); LYMPHOCYTES # (AUTO) 1.6 X10^3/uL (1.3-2.9); LYMPHOCYTES % (AUTO) 16.1 % (21.0-51.0); MEAN CORPUSCULAR HEMOGLOBIN 29.5 pg (27.0-34.0); MEAN CORPUSCULAR VOLUME 89.3 fL (80.0-100.0); MEAN PLATELET VOLUME 8.7 fL (7.4-11.0); MONOCYTES # (AUTO) 0.4 x10^3/uL (0.3-0.8); MONOCYTES % (AUTO) 4.1 % (0.0-13.0); NEUTROPHILS # (AUTO) 7.8 x10^3/uL (2.2-4.8); NEUTROPHILS % (AUTO) 79.1 % (42.0-75.0); PLATELET COUNT 345 X10^3/uL (150.0-450.0); RED BLOOD COUNT 3.92 X10^6/uL (3.5-5.4); RED CELL DISTRIBUTION WIDTH 15.5 % (11.6-16.5); WHITE BLOOD COUNT 9.8 X10^3/uL (3.6-10.0)
[2020-02-05 06:24] LABS: ALANINE AMINOTRANSFERASE 15 Units/L (12-78); ALBUMIN 2.6 g/dL (3.4-5.0); ALKALINE PHOSPHATASE 55 Units/L (46-116); ASPARTATE AMINO TRANSFERASE 18 Units/L (15-37); BLOOD UREA NITROGEN 11 mg/dL (7-18); CARBON DIOXIDE 24.3 mmol/L (21-32); CHLORIDE 101 mmol/L (98-107); COR CA(FOR HYPOALB) 10.1 mg/dL (8.5-10.1); CREATININE 0.86 mg/dL (0.55-1.02); SODIUM 135 mmol/L (136-145); TOTAL PROTEIN 6.7 g/dL (6.4-8.2); eGFR NON BLACK RACES > 60 (>60)
[2020-02-05] MEDS: K-DUR TAB 20 MEQ PO PRN ×2 (06:40→08:46)
[2020-02-05] MEDS ORDERED: ZESTRIL TAB 20 MG ONE ×2 (08:20→20:27)
[2020-02-05] MEDS: TOPROL XL PO SCH (08:47)
[2020-02-05] MEDS: ASPIRIN EC 81 MG PO SCH (08:47)
[2020-02-05] MEDS: SINGULAIR TAB 10 MG PO SCH (08:47)
[2020-02-05] MEDS: CORDARONE TAB 200 MG PO SCH (08:49)
[2020-02-05] MEDS: ZESTRIL TAB 20 MG PO SCH ×2 (08:49→20:35)
[2020-02-05] MEDS: MEGACE PO SCH ×2 (08:49→20:35)
[2020-02-05] MEDS: PLAVIX PO SCH (08:49)
[2020-02-05] MEDS: PREVACID PO SCH (08:49)
[2020-02-05] MEDS: XARELTO PO SCH (08:50)
[2020-02-05] MEDS: NS 1000 ML 1,000 ML IV SCH (08:50)
[2020-02-05] MEDS ORDERED: HYDROGEN PEROXIDE 3% ONE (09:35)
[2020-02-05] MEDS ORDERED: HYDROGEN PEROXIDE 3% EXT PRN (09:39)
[2020-02-05] MEDS: MAGNESIUM SULFATE 1 GRAM/100 mL PREMIX 1 GM/100 ML BAG IV PRN ×2 (11:34→12:52)
[2020-02-05] MEDS: NORCO 7.5/325 MG TAB PO PRN ×2 (11:37→20:35)
--- NOTE | 2020-02-05 11:51 | PCM.PROG ---
Progress Note - Progress Note for Day of Date of Exam: 02/04/20 - Subjective Subjective: Pt is a 75 yo WF admitted for AMS, UTI, COVID/Sepsis r/o, Decubitus ulcer. BloodCx NGTD. Sacral wound followed by surgery-Dr Campos, cultures positive for E.coli. Currently has a wound vac. Patient states she is doing better. Has history of A FIb. Denies any complaints at this time. - Past Medical Family Social History Past Med/Fam/Surg Hx: No changes since H&P Allergies: Allergies No Known Drug Allergies Allergy (Verified 01/23/20 18:03) - Review of Systems ROS: No change since H&P - Vital Signs and I&O's Vital Signs: Temperature 98.2 F Pulse Rate [Right Brachial] 94 Pulse Rate [Left Radial] 92 Pulse Rate 94 Respiratory Rate 20 Blood Pressure [Right Arm] 157/91 Blood Pressure [Left Arm] 165/90 Blood Pressure 151/93 O2 Sat by Pulse Oximetry 96 Intake and Output: Intake & Output 02/02/20 02/03/20 02/04/20 02/05/20 23:59 23:59 23:59 23:59 Intake Total 2320 / 2320 1275 / 1275 360 / 360 110 / 110 Output Total 3900 / 3900 1900 / 1900 2075 / 2075 200 / 200 Balance -1580 / -1580 -625 / -625 -1715 / -1715 -90 / -90 - Physical Exam Oriented: Person Eyes: Normal Ear: Normal Nose: Normal Throat: Dry Respiratory: Diminished Cardiovascular: Irregular : Dysuria Auscultation: Bowel Sounds: Normal Tenderness: Normal Skin: Wound (sacral ulcer is covered with the wound vac wound vac to sacral decubitus) Musculoskeletal: Motor Deficit, Instability Psychiatric: Anxiety Mood Description: Calm Affect: Anxious, Flat Speech Pattern: Clear - Laboratory and Diagnostics Result Diagrams: 02/05/20 05:08 02/05/20 08:00 Labs: 01/30/20 04:20 Blood Blood Culture - Final 01/30/20 04:20 Blood Blood Culture - Final 02/02/20 09:12 Urine,Clean Catch Urine Culture - Final 01/30/20 03:55 Coccyx Gram Stain - Final 01/30/20 03:55 Coccyx Wound Culture - Final Escherichia Coli 01/30/20 00:50 Urine,Catheterized Urine Culture - Final Laboratory WBC 9.8 X10^3/uL (3.6-10.0) 02/05/20 05:08 RBC 3.92 X10^6/uL (3.5-5.4) 02/05/20 05:08 Hgb 11.6 g/dL (12.0-16.0) L 02/05/20 05:08 Hct 35.0 % (36.0-47.0) L 02/05/20 05:08 MCV 89.3 fL (80.0-100.0) 02/05/20 05:08 MCH 29.5 pg (27.0-34.0) 02/05/20 05:08 MCHC 33.0 g/dL (33.0-35.0) 02/05/20 05:08 RDW 15.5 % (11.6-16.5) 02/05/20 05:08 Plt Count 345 X10^3/uL (150.0-450.0) 02/05/20 05:08 MPV 8.7 fL (7.4-11.0) 02/05/20 05:08 Neut % (Auto) 79.1 % (42.0-75.0) H 02/05/20 05:08 Lymph % (Auto) 16.1 % (21.0-51.0) L 02/05/20 05:08 [place] % (Auto) 4.1 % (0.0-13.0) 02/05/20 05:08 Eos % (Auto) 0.1 % (0.9-2.9) L 02/05/20 05:08 Baso % (Auto) 0.6 % (0.2-1.0) 02/05/20 05:08 Neut # (Auto) 7.8 x10^3/uL (2.2-4.8) H 02/05/20 05:08 Lymph # (Auto) 1.6 X10^3/uL (1.3-2.9) 02/05/20 05:08 [place] # (Auto) 0.4 x10^3/uL (0.3-0.8) 02/05/20 05:08 Eos # (Auto) 0.0 x10^3/uL (0.0-0.2) 02/05/20 05:08 Baso # (Auto) 0.1 X10^3/uL (0.0-0.1) 02/05/20 05:08 Absolute Nucleated RBC 0.0 /100WBC 02/05/20 05:08 PT 20.6 SECONDS (11.8-14.3) 01/29/20 21:45 INR Target Range - 01/29/20 21:45 INR 1.83 (0.8-1.3) H 01/29/20 21:45 APTT 28.9 SECONDS (22.9-36.5) 01/29/20 21:45 PTT Comment - 01/29/20 21:45 Sodium 135 mmol/L (136-145) L 02/05/20 05:08 Corrected Sodium TNP 02/05/20 05:08 Potassium 3.8 mmol/L (3.5-5.1) 02/05/20 08:00 Chloride 101 mmol/L (98-107) 02/05/20 05:08 Carbon Dioxide 24.3 mmol/L (21-32) 02/05/20 05:08 BUN 11 mg/dL (7-18) 02/05/20 05:08 Creatinine 0.86 mg/dL (0.55-1.02) 02/05/20 05:08 Est GFR (MDRD) Af Amer > 60 (>60) 02/05/20 05:08 Est GFR (MDRD) Non-Af > 60 (>60) 02/05/20 05:08 Glucose 81 mg/dL (65-99) 02/05/20 05:08 Lactic Acid 1.5 mmol/L (0.4-2.0) 01/29/20 22:04 Calcium 9.0 mg/dL (8.5-10.1) 02/05/20 05:08 Corrected Calcium 10.1 mg/dL (8.5-10.1) 02/05/20 05:08 Phosphorus 2.8 mg/dL (2.6-4.7) 01/30/20 04:20 Magnesium 1.7 mg/dL (1.7-2.9) 02/05/20 05:08 Total Bilirubin 0.40 mg/dL (0.2-1.0) 02/05/20 05:08 AST 18 Units/L (15-37) 02/05/20 05:08 ALT 15 Units/L (12-78) 02/05/20 05:08 Alkaline Phosphatase 55 Units/L (46-116) 02/05/20 05:08 Creatine Kinase 46 Units/L (26-192) 02/03/20 08:10 CK-MB (CK-2) 1.3 ng/mL (0-4.0) 02/03/20 08:10 CK/CKMB % Calc 2.8 % (<4) 02/03/20 08:10 Troponin I < 0.02 ng/mL (0-1.5) 02/03/20 08:10 Total Protein 6.7 g/dL (6.4-8.2) 02/05/20 05:08 Albumin 2.6 g/dL (3.4-5.0) L 02/05/20 05:08 Globulin 4.1 g/dL (2.5-4.5) 02/05/20 05:08 Albumin/Globulin Ratio 0.6 Ratio (1.1-2.1) L 02/05/20 05:08 Prealbumin 13.4 mg/dL (18-35.7) L 01/30/20 04:20 Specimen Type Catherized urine 02/02/20 09:12 Urine Color Yellow (YELLOW) 02/02/20 09:12 Urine Appearance Hazy (CLEAR) 02/02/20 09:12 Urine pH 6.0 (5.0 - 8.0) 02/02/20 09:12 Ur Specific [place] 1.010 (1.000-1.030) 02/02/20 09:12 Urine Protein 3+ (NEGATIVE) 02/02/20 09:12 Urine Glucose (UA) 1+ (NEGATIVE) 02/02/20 09:12 Urine Ketones Negative (NEGATIVE) 02/02/20 09:12 Urine Occult Blood 1+ (NEGATIVE) 02/02/20 09:12 Urine Nitrite Negative (NEGATIVE) 02/02/20 09:12 Urine Bilirubin Negative (NEGATIVE) 02/02/20 09:12 Urine Urobilinogen 1+ (NORMAL) 02/02/20 09:12 Ur Leukocyte Esterase 1+ (NEGATIVE) 02/02/20 09:12 Urine RBC 0-2 /HPF (0-3) 02/02/20 09:12 Urine WBC 0-2 /HPF (0-5) 02/02/20 09:12 Ur Squamous Epith Cells Negative /HPF (NEGATIVE) 02/02/20 09:12 Urine Bacteria Negative /HPF (NEGATIVE) 02/02/20 09:12 Ur Culture Indicated? No/not indicated 02/02/20 09:12 Stool Description Fob tube 02/04/20 17:33 Stl Occult Blood (IFOB) Negative (NEGATIVE) 02/04/20 17:33 SARS-CoV-2 (PCR) Negative (NEGATIVE) 01/30/20 02:10 Tissue Pathology To follow 01/30/20 10:00 - Plan (1) Aspiration pneumonia Status: Acute Qualifiers: Aspiration pneumonia type: unspecified Laterality: right Lung location: middle lobe of lung Qualified Code(s): J69.0 - Pneumonitis due to inhalation of food and vomit Plan: Continue antibiotics. Deep Breathes. (2) Urinary tract infection Status: Acute Qualifiers: Urinary tract infection type: site unspecified Hematuria presence: with hematuria Qualified Code(s): N39.0 - Urinary tract infection, site not specified; R31.9 - Hematuria, unspecified Plan: Zosyn IV (3) Decubitus ulcer Status: Inactive Qualifiers: Pressure injury location: sacral region Pressure injury stage: unspecified pressure injury stage Qualified Code(s): L89.159 - Pressure ulcer of sacral region, unspecified stage Plan: Dr Dudley. Zosyn IVPB (4) Physical deconditioning Status: Acute Plan: Physical Therapy. NH placement pendng. (5) Underweight due to inadequate caloric intake Status: Acute Plan: Encourage appetite (6) Paroxysmal atrial fibrillation Status: Acute Plan: Monitor heart rate
--- NOTE | 2020-02-05 11:54 | PCM.PROG ---
Progress Note - Progress Note for Day of Date of Exam: 02/05/20 - Subjective Subjective: Pt is a 75 yo WF admitted for AMS, UTI, COVID/Sepsis r/o, Decubitus ulcer. BloodCx NGTD. Sacral wound followed by surgery-Dr Campos, cultures positive for E.coli. Currently has a wound vac. Patient states she is doing better. Has history of A FIb. States she did have a large BM last night. Denies any SOB or cough. Denies any complaints at this time. Pending NH placement- awaiting bed and negative COVID swab. - Past Medical Family Social History Past Med/Fam/Surg Hx: No changes since H&P Allergies: Allergies No Known Drug Allergies Allergy (Verified 01/23/20 18:03) - Review of Systems ROS: No change since H&P - Vital Signs and I&O's Vital Signs: Temperature 98.2 F Pulse Rate [Right Brachial] 94 Pulse Rate [Left Radial] 92 Pulse Rate 94 Respiratory Rate 20 Blood Pressure [Right Arm] 157/91 Blood Pressure [Left Arm] 165/90 Blood Pressure 151/93 O2 Sat by Pulse Oximetry 96 Intake and Output: Intake & Output 02/02/20 02/03/20 02/04/20 02/05/20 23:59 23:59 23:59 23:59 Intake Total 2320 / 2320 1275 / 1275 360 / 360 110 / 110 Output Total 3900 / 3900 1900 / 1900 2074 / 2074 200 / 200 Balance -1580 / -1580 -625 / -625 -1715 / -1715 -90 / -90 - Physical Exam Oriented: Person Eyes: Normal Ear: Normal Nose: Normal Throat: Dry Respiratory: Diminished Cardiovascular: Irregular : Dysuria Auscultation: Bowel Sounds: Normal Tenderness: Normal Skin: Wound (sacral ulcer is covered with the wound vac wound vac to sacral decubitus) Musculoskeletal: Motor Deficit, Instability Psychiatric: Anxiety Mood Description: Calm Affect: Anxious, Flat Speech Pattern: Clear - Laboratory and Diagnostics Result Diagrams: 02/05/20 05:08 02/05/20 08:00 Labs: 01/30/20 04:20 Blood Blood Culture - Final 01/30/20 04:20 Blood Blood Culture - Final 02/02/20 09:12 Urine,Clean Catch Urine Culture - Final 01/30/20 03:55 Coccyx Gram Stain - Final 01/30/20 03:55 Coccyx Wound Culture - Final Escherichia Coli 01/30/20 00:50 Urine,Catheterized Urine Culture - Final Laboratory WBC 9.8 X10^3/uL (3.6-10.0) 02/05/20 05:08 RBC 3.92 X10^6/uL (3.5-5.4) 02/05/20 05:08 Hgb 11.6 g/dL (12.0-16.0) L 02/05/20 05:08 Hct 35.0 % (36.0-47.0) L 02/05/20 05:08 MCV 89.3 fL (80.0-100.0) 02/05/20 05:08 MCH 29.5 pg (27.0-34.0) 02/05/20 05:08 MCHC 33.0 g/dL (33.0-35.0) 02/05/20 05:08 RDW 15.5 % (11.6-16.5) 02/05/20 05:08 Plt Count 345 X10^3/uL (150.0-450.0) 02/05/20 05:08 MPV 8.7 fL (7.4-11.0) 02/05/20 05:08 Neut % (Auto) 79.1 % (42.0-75.0) H 02/05/20 05:08 Lymph % (Auto) 16.1 % (21.0-51.0) L 02/05/20 05:08 [place] % (Auto) 4.1 % (0.0-13.0) 02/05/20 05:08 Eos % (Auto) 0.1 % (0.9-2.9) L 02/05/20 05:08 Baso % (Auto) 0.6 % (0.2-1.0) 02/05/20 05:08 Neut # (Auto) 7.8 x10^3/uL (2.2-4.8) H 02/05/20 05:08 Lymph # (Auto) 1.6 X10^3/uL (1.3-2.9) 02/05/20 05:08 [place] # (Auto) 0.4 x10^3/uL (0.3-0.8) 02/05/20 05:08 Eos # (Auto) 0.0 x10^3/uL (0.0-0.2) 02/05/20 05:08 Baso # (Auto) 0.1 X10^3/uL (0.0-0.1) 02/05/20 05:08 Absolute Nucleated RBC 0.0 /100WBC 02/05/20 05:08 PT 20.6 SECONDS (11.8-14.3) 01/29/20 21:45 INR Target Range - 01/29/20 21:45 INR 1.83 (0.8-1.3) H 01/29/20 21:45 APTT 28.9 SECONDS (22.9-36.5) 01/29/20 21:45 PTT Comment - 01/29/20 21:45 Sodium 135 mmol/L (136-145) L 02/05/20 05:08 Corrected Sodium TNP 02/05/20 05:08 Potassium 3.8 mmol/L (3.5-5.1) 02/05/20 08:00 Chloride 101 mmol/L (98-107) 02/05/20 05:08 Carbon Dioxide 24.3 mmol/L (21-32) 02/05/20 05:08 BUN 11 mg/dL (7-18) 02/05/20 05:08 Creatinine 0.86 mg/dL (0.55-1.02) 02/05/20 05:08 Est GFR (MDRD) Af Amer > 60 (>60) 02/05/20 05:08 Est GFR (MDRD) Non-Af > 60 (>60) 02/05/20 05:08 Glucose 81 mg/dL (65-99) 02/05/20 05:08 Lactic Acid 1.5 mmol/L (0.4-2.0) 01/29/20 22:04 Calcium 9.0 mg/dL (8.5-10.1) 02/05/20 05:08 Corrected Calcium 10.1 mg/dL (8.5-10.1) 02/05/20 05:08 Phosphorus 2.8 mg/dL (2.6-4.7) 01/30/20 04:20 Magnesium 1.7 mg/dL (1.7-2.9) 02/05/20 05:08 Total Bilirubin 0.40 mg/dL (0.2-1.0) 02/05/20 05:08 AST 18 Units/L (15-37) 02/05/20 05:08 ALT 15 Units/L (12-78) 02/05/20 05:08 Alkaline Phosphatase 55 Units/L (46-116) 02/05/20 05:08 Creatine Kinase 46 Units/L (26-192) 02/03/20 08:10 CK-MB (CK-2) 1.3 ng/mL (0-4.0) 02/03/20 08:10 CK/CKMB % Calc 2.8 % (<4) 02/03/20 08:10 Troponin I < 0.02 ng/mL (0-1.5) 02/03/20 08:10 Total Protein 6.7 g/dL (6.4-8.2) 02/05/20 05:08 Albumin 2.6 g/dL (3.4-5.0) L 02/05/20 05:08 Globulin 4.1 g/dL (2.5-4.5) 02/05/20 05:08 Albumin/Globulin Ratio 0.6 Ratio (1.1-2.1) L 02/05/20 05:08 Prealbumin 13.4 mg/dL (18-35.7) L 01/30/20 04:20 Specimen Type Catherized urine 02/02/20 09:12 Urine Color Yellow (YELLOW) 02/02/20 09:12 Urine Appearance Hazy (CLEAR) 02/02/20 09:12 Urine pH 6.0 (5.0 - 8.0) 02/02/20 09:12 Ur Specific [place] 1.010 (1.000-1.030) 02/02/20 09:12 Urine Protein 3+ (NEGATIVE) 02/02/20 09:12 Urine Glucose (UA) 1+ (NEGATIVE) 02/02/20 09:12 Urine Ketones Negative (NEGATIVE) 02/02/20 09:12 Urine Occult Blood 1+ (NEGATIVE) 02/02/20 09:12 Urine Nitrite Negative (NEGATIVE) 02/02/20 09:12 Urine Bilirubin Negative (NEGATIVE) 02/02/20 09:12 Urine Urobilinogen 1+ (NORMAL) 02/02/20 09:12 Ur Leukocyte Esterase 1+ (NEGATIVE) 02/02/20 09:12 Urine RBC 0-2 /HPF (0-3) 02/02/20 09:12 Urine WBC 0-2 /HPF (0-5) 02/02/20 09:12 Ur Squamous Epith Cells Negative /HPF (NEGATIVE) 02/02/20 09:12 Urine Bacteria Negative /HPF (NEGATIVE) 02/02/20 09:12 Ur Culture Indicated? No/not indicated 02/02/20 09:12 Stool Description Fob tube 02/04/20 17:33 Stl Occult Blood (IFOB) Negative (NEGATIVE) 02/04/20 17:33 SARS-CoV-2 (PCR) Negative (NEGATIVE) 01/30/20 02:10 Tissue Pathology To follow 01/30/20 10:00 - Plan (1) Decubitus ulcer, stage 4 with infection Status: Acute Plan: PATH: E Coli. Wound Vac. Dr Marcial, surgeon consulting. Zosyn IV (2) Urinary tract infection Status: Acute Qualifiers: Urinary tract infection type: site unspecified Hematuria presence: with hematuria Qualified Code(s): N39.0 - Urinary tract infection, site not specified; R31.9 - Hematuria, unspecified Plan: Zosyn IV (3) Aspiration pneumonia Status: Acute Qualifiers: Aspiration pneumonia type: unspecified Laterality: right Lung location: middle lobe of lung Qualified Code(s): J69.0 - Pneumonitis due to inhalation of food and vomit Plan: Continue antibiotics. Deep Breathes. (4) Decubitus ulcer Status: Inactive Qualifiers: Pressure injury location: sacral region Pressure injury stage: unspecified pressure injury stage Qualified Code(s): L89.159 - Pressure ulcer of sacral region, unspecified stage Plan: Dr Marcial following. Zosyn IVPB (5) Physical deconditioning Status: Acute Plan: Physical Therapy. NH placement pendng. (6) Underweight due to inadequate caloric intake Status: Acute Plan: Encourage appetite (7) Paroxysmal atrial fibrillation Status: Acute Plan: Monitor heart rate
[2020-02-05] MEDS: TYLENOL 325 MG TAB PO PRN (15:06)
[2020-02-05] MEDS: LIPITOR TAB 20 MG PO SCH (20:35)
[2020-02-06] MEDS: ZOSYN VIAL 2.25 GRAMS 2.25 G in NS 100 ML IV + SPIKE MINIBAG* 100 ML IV SCH (02:23)
[2020-02-06] MEDS: ZOFRAN INJ 4 MG VIAL IV PRN (05:30)
[2020-02-06 05:53] LABS: BASOPHILS % (AUTO) 0.5 % (0.2-1.0); EOSINOPHILS % (AUTO) 0.4 % (0.9-2.9); HEMATOCRIT 31.1 % (36.0-47.0); HEMOGLOBIN 10.5 g/dL (12.0-16.0); LYMPHOCYTES % (AUTO) 20.5 % (21.0-51.0); MEAN CORPUSCULAR HEMOGLOBIN 30.4 pg (27.0-34.0); MEAN CORPUSCULAR HGB CONC 33.8 g/dL (33.0-35.0); MEAN CORPUSCULAR VOLUME 90.2 fL (80.0-100.0); MONOCYTES # (AUTO) 0.5 x10^3/uL (0.3-0.8); MONOCYTES % (AUTO) 5.5 % (0.0-13.0); NEUTROPHILS # (AUTO) 7.1 x10^3/uL (2.2-4.8); NEUTROPHILS % (AUTO) 73.1 % (42.0-75.0); PLATELET COUNT 315 X10^3/uL (150.0-450.0); RED BLOOD COUNT 3.45 X10^6/uL (3.5-5.4); WHITE BLOOD COUNT 9.7 X10^3/uL (3.6-10.0)
[2020-02-06 06:13] LABS: ALANINE AMINOTRANSFERASE 17 Units/L (12-78); ALBUMIN 2.4 g/dL (3.4-5.0); ALKALINE PHOSPHATASE 48 Units/L (46-116); ASPARTATE AMINO TRANSFERASE 23 Units/L (15-37); BLOOD UREA NITROGEN 12 mg/dL (7-18); CALCIUM 8.4 mg/dL (8.5-10.1); CARBON DIOXIDE 20.8 mmol/L (21-32); CHLORIDE 103 mmol/L (98-107); COR CA(FOR HYPOALB) 9.7 mg/dL (8.5-10.1); CREATININE 0.98 mg/dL (0.55-1.02); MAGNESIUM 2.1 mg/dL (1.7-2.9); SODIUM 134 mmol/L (136-145); TOTAL PROTEIN 6.1 g/dL (6.4-8.2); eGFR NON BLACK RACES 59 (>60)
[2020-02-06] MEDS ORDERED: ZESTRIL TAB 20 MG ONE (07:43)
[2020-02-06] MEDS: ZESTRIL TAB 20 MG PO SCH (08:23)
[2020-02-06] MEDS: ZOSYN VIAL 2.25 GRAMS 2.25 G in NS 100 ML IV 100 ML IV SCH ×2 (08:23→14:18)
[2020-02-06] MEDS: MEGACE PO SCH (08:24)
[2020-02-06] MEDS: ASPIRIN EC 81 MG PO SCH (08:24)
[2020-02-06] MEDS: PLAVIX PO SCH (08:24)
[2020-02-06] MEDS: NS 1000 ML 1,000 ML IV SCH (08:24)
[2020-02-06] MEDS: CORDARONE TAB 200 MG PO SCH (08:24)
[2020-02-06] MEDS: NORCO 7.5/325 MG TAB PO PRN (08:25)
[2020-02-06] MEDS: SINGULAIR TAB 10 MG PO SCH (08:25)
[2020-02-06] MEDS: XARELTO PO SCH (08:25)
[2020-02-06] MEDS: TOPROL XL PO SCH (08:25)
[2020-02-06] MEDS: PREVACID PO SCH (08:25)
[2020-02-06] MEDS ORDERED: NS IRRIGATION 500 ML IR ONE (14:27)
[2020-02-06 15:19] VITALS: BP 122/70
== END 2020-02-06 17:45 | DRG 673 ==
LOC: ER 21:08 → MED/SURG 01-30 02:47
PROVIDERS: ADMIT Internal Medicine; ATTEND Internal Medicine
DX: I48.0 Paroxysmal atrial fibrillation; R41.82 Altered mental status, unspecified; E78.2 Mixed hyperlipidemia; N39.0 Urinary tract infection, site not specified; B96.29 Other Escherichia coli [E. coli] as the cause of diseases classified elsewhere; L89.154 Pressure ulcer of sacral region, stage 4; R63.6 Underweight; R26.89 Other abnormalities of gait and mobility; J69.0 Pneumonitis due to inhalation of food and vomit; Z11.59 Encounter for screening for other viral diseases; R53.81 Other malaise; R31.9 Hematuria, unspecified; Z74.01 Bed confinement status; I10 Essential (primary) hypertension; R94.31 Abnormal electrocardiogram [ECG] [EKG]
CPT/HCPCS: 36415; 51702; 71010; 71045; 80048; 80053; 81001; 82270; 82550; 82553; 83605; 83735; 84100; 84132; 84134; 84484; 85025; 85610; 85730; 87040; 87070; 87075; 87077; 87086; 87186; 87205; 87635; 88304; 93005; 94760; 96365; 96367; 97110; 97163; 97166; 97530; 97535; 99100; 99284; A4222; J0690; J2405; J2543; J2704; J3475; J3490; J7030; J7040; J7050; J7120; S0179

== ENCOUNTER 2020-03-08 11:51 | Inpatient (IN) ==
[2020-03-08] MEDS ORDERED: NS 1000 ML 1,000 ML IV ONE (12:10)
[2020-03-08] MEDS ORDERED: NS 1000 ML 1,000 ML ONE (12:15)
[2020-03-08 12:43] LABS: BASOPHILS # (AUTO) 0.1 X10^3/uL (0.0-0.1); BASOPHILS % (AUTO) 0.7 % (0.2-1.0); EOSINOPHILS # (AUTO) 0.1 x10^3/uL (0.0-0.2); EOSINOPHILS % (AUTO) 0.5 % (0.9-2.9); HEMATOCRIT 29.7 % (36.0-47.0); HEMOGLOBIN 9.6 g/dL (12.0-16.0); LYMPHOCYTES # (AUTO) 2.2 X10^3/uL (1.3-2.9); LYMPHOCYTES % (AUTO) 17.8 % (21.0-51.0); MEAN CORPUSCULAR HEMOGLOBIN 29.6 pg (27.0-34.0); MEAN CORPUSCULAR HGB CONC 32.3 g/dL (33.0-35.0); MEAN CORPUSCULAR VOLUME 91.7 fL (80.0-100.0); MEAN PLATELET VOLUME 8.2 fL (7.4-11.0); MONOCYTES # (AUTO) 0.8 x10^3/uL (0.3-0.8); MONOCYTES % (AUTO) 6.1 % (0.0-13.0); NEUTROPHILS # (AUTO) 9.4 x10^3/uL (2.2-4.8); NEUTROPHILS % (AUTO) 74.9 % (42.0-75.0); PLATELET COUNT 346 X10^3/uL (150.0-450.0); RED BLOOD COUNT 3.24 X10^6/uL (3.5-5.4); RED CELL DISTRIBUTION WIDTH 17.4 % (11.6-16.5); WHITE BLOOD COUNT 12.5 X10^3/uL (3.6-10.0)
--- NOTE | 2020-03-08 12:48 | RAD ---
HISTORYSEPSISSTUDYPortable AP chestCOMPARISONJuly 2019FINDINGSThe lungs are clear and the heart and mediastinum are unremarkable. There is no edema or effusion or congestion. No bony abnormality is suggested.IMPRESSIONNo evidence for active cardiopulmonary diseaseElectronically signed by: SUSAN MILLER (Mar 08, 2020 12:47:26)
[2020-03-08 12:55] LABS: ALANINE AMINOTRANSFERASE 21 Units/L (12-78); ALBUMIN 3.1 g/dL (3.4-5.0); ALKALINE PHOSPHATASE 68 Units/L (46-116); ASPARTATE AMINO TRANSFERASE 22 Units/L (15-37); BLOOD UREA NITROGEN 15 mg/dL (7-18); CALCIUM 8.9 mg/dL (8.5-10.1); CARBON DIOXIDE 25.1 mmol/L (21-32); CHLORIDE 107 mmol/L (98-107); COR CA(FOR HYPOALB) 9.6 mg/dL (8.5-10.1); CREATININE 0.93 mg/dL (0.55-1.02); LIPASE 65 Units/L (73-393); MAGNESIUM 2.1 mg/dL (1.7-2.9); PHOSPHORUS 2.6 mg/dL (2.6-4.7); SODIUM 144 mmol/L (136-145); TOTAL PROTEIN 7.2 g/dL (6.4-8.2); eGFR NON BLACK RACES > 60 (>60)
--- NOTE | 2020-03-08 13:03 | DR.EXTPAIN ---
HPI Time seen Time Seen by Provider: 03/08/20 12:00 PMH PMH Past Medical History: Anxiety, Arthritis, CVA, Dementia, Depression, Dyslipidemia and Hypertension Past Surgical History: Yes Surgical History: Hysterectomy Social History Do you use any recreational Drugs:: No PE Vital Signs Vitals: Temperature 100 F Pulse Rate 104 Respiratory Rate 16 Blood Pressure [Right Arm] 122/70 Blood Pressure 184/111 O2 Sat by Pulse Oximetry 99 COURSE Consultation Called: 13:52 Call Returned: 14:13 Consultation Comments: Case discussed with DR. Farr, admit for antibiotics and surgical consult ROR Labs Reviewed Result Diagrams: 03/08/20 12:19 03/08/20 12:19 Laboratory: 03/08/20 12:56 Sacral Gram Stain - Final WBC 12.5 X10^3/uL (3.6-10.0) H 03/08/20 12:19 RBC 3.24 X10^6/uL (3.5-5.4) L 03/08/20 12:19 Hgb 9.6 g/dL (12.0-16.0) L 03/08/20 12:19 Hct 29.7 % (36.0-47.0) L 03/08/20 12:19 MCV 91.7 fL (80.0-100.0) 03/08/20 12:19 MCH 29.6 pg (27.0-34.0) 03/08/20 12:19 MCHC 32.3 g/dL (33.0-35.0) L 03/08/20 12:19 RDW 17.4 % (11.6-16.5) H 03/08/20 12:19 Plt Count 346 X10^3/uL (150.0-450.0) 03/08/20 12:19 MPV 8.2 fL (7.4-11.0) 03/08/20 12:19 Neut % (Auto) 74.9 % (42.0-75.0) 03/08/20 12:19 Lymph % (Auto) 17.8 % (21.0-51.0) L 03/08/20 12:19 [place] % (Auto) 6.1 % (0.0-13.0) 03/08/20 12:19 Eos % (Auto) 0.5 % (0.9-2.9) L 03/08/20 12:19 Baso % (Auto) 0.7 % (0.2-1.0) 03/08/20 12:19 Neut # (Auto) 9.4 x10^3/uL (2.2-4.8) H 03/08/20 12:19 Lymph # (Auto) 2.2 X10^3/uL (1.3-2.9) 03/08/20 12:19 [place] # (Auto) 0.8 x10^3/uL (0.3-0.8) 03/08/20 12:19 Eos # (Auto) 0.1 x10^3/uL (0.0-0.2) 03/08/20 12:19 Baso # (Auto) 0.1 X10^3/uL (0.0-0.1) 03/08/20 12:19 Absolute Nucleated RBC 0.0 /100WBC 03/08/20 12:19 PT 22.9 SECONDS (11.8-14.3) 03/08/20 12:19 INR Target Range - 03/08/20 12:19 INR 2.09 (0.8-1.3) H 03/08/20 12:19 Sodium 144 mmol/L (136-145) 03/08/20 12:19 Corrected Sodium TNP 03/08/20 12:19 Potassium 3.7 mmol/L (3.5-5.1) 03/08/20 12:19 Chloride 107 mmol/L (98-107) 03/08/20 12:19 Carbon Dioxide 25.1 mmol/L (21-32) 03/08/20 12:19 BUN 15 mg/dL (7-18) 03/08/20 12:19 Creatinine 0.93 mg/dL (0.55-1.02) 03/08/20 12:19 Est GFR (MDRD) Af Amer > 60 (>60) 03/08/20 12:19 Est GFR (MDRD) Non-Af > 60 (>60) 03/08/20 12:19 Glucose 92 mg/dL (65-99) 03/08/20 12:19 Lactic Acid 1.4 mmol/L (0.4-2.0) 03/08/20 12:19 Calcium 8.9 mg/dL (8.5-10.1) 03/08/20 12:19 Corrected Calcium 9.6 mg/dL (8.5-10.1) 03/08/20 12:19 Phosphorus 2.6 mg/dL (2.6-4.7) 03/08/20 12:19 Magnesium 2.1 mg/dL (1.7-2.9) 03/08/20 12:19 Total Bilirubin 0.30 mg/dL (0.2-1.0) 03/08/20 12:19 AST 22 Units/L (15-37) 03/08/20 12:19 ALT 21 Units/L (12-78) 03/08/20 12:19 Alkaline Phosphatase 68 Units/L (46-116) 03/08/20 12:19 Total Protein 7.2 g/dL (6.4-8.2) 03/08/20 12:19 Albumin 3.1 g/dL (3.4-5.0) L 03/08/20 12:19 Globulin 4.1 g/dL (2.5-4.5) 03/08/20 12:19 Albumin/Globulin Ratio 0.8 Ratio (1.1-2.1) L 03/08/20 12:19 Lipase 65 Units/L (73-393) L 03/08/20 12:19 Specimen Type Clean catch urine 03/08/20 12:56 Urine Color Yellow (YELLOW) 03/08/20 12:56 Urine Appearance Slightly hazy (CLEAR) 03/08/20 12:56 Urine pH 6.0 (5.0 - 8.0) 03/08/20 12:56 Ur Specific [place] 1.015 (1.000-1.030) 03/08/20 12:56 Urine Protein 3+ (NEGATIVE) 03/08/20 12:56 Urine Glucose (UA) Negative (NEGATIVE) 03/08/20 12:56 Urine Ketones Negative (NEGATIVE) 03/08/20 12:56 Urine Occult Blood 1+ (NEGATIVE) 03/08/20 12:56 Urine Nitrite Negative (NEGATIVE) 03/08/20 12:56 Urine Bilirubin Negative (NEGATIVE) 03/08/20 12:56 Urine Urobilinogen Normal (NORMAL) 03/08/20 12:56 Ur Leukocyte Esterase 1+ (NEGATIVE) 03/08/20 12:56 Urine RBC 0-2 /HPF (0-3) 03/08/20 12:56 Urine WBC 3-5 /HPF (0-5) 03/08/20 12:56 Ur Squamous Epith Cells Few /HPF (NEGATIVE) 03/08/20 12:56 Urine Bacteria Negative /HPF (NEGATIVE) 03/08/20 12:56 Ur Culture Indicated? No/not indicated 03/08/20 12:56 XRAY XRAY Interpreted by: Radiologist X-ray Results: CHEST: normal Opioid Opioid Risk Tool Age (Elmer box if 16-45): No History of Preadolescent Sexual Abuse: No Total: 0 Total Score Risk Category: Low Risk Copyright: [facility] predicting aberrant behaviors Diagnosis Discharge Problem: Decubitus ulcer, stage 4 with infection Urinary tract infection Qualifiers: Urinary tract infection type: acute cystitis Hematuria presence: without hematuria Qualified Code(s): N30.00 - Acute cystitis without hematuria Fever Qualifiers: Fever type: due to other condition Qualified Code(s): R50.81 - Fever presenting with conditions classified elsewhere Instructions Forms: Excuse From Work Precautions for COVID19 Patient Portal Social Distancing
[2020-03-08 13:10] LABS: BILIRUBIN,URINE NEGATIVE (NEGATIVE); BLOOD/HEMOGLOBIN,URINE 1+ (NEGATIVE); GLUCOSE, URINE NEGATIVE (NEGATIVE); KETONES,URINE NEGATIVE (NEGATIVE); LEUKOCYTE ESTERASE ,URINE 1+ (NEGATIVE); NITRITES,URINE NEGATIVE (NEGATIVE); PROTEIN,URINE 3+ (NEGATIVE); UROBILINOGEN,URINE NORMAL (NORMAL)
[2020-03-08 13:29] LABS: APPEARANCE,URINE SLIGHTLY HAZY (CLEAR); BACTERIA,URINE NEGATIVE /HPF (NEGATIVE); COLOR,URINE YELLOW (YELLOW); RBC,URINE 0-2 /HPF (0-3); SQUAMOUS EPITHELIAL CELL,UR FEW /HPF (NEGATIVE)
[2020-03-08] MEDS ORDERED: VANCOMYCIN IV *PREMIX 1 G/200 ML BAG 1 G/200 ML PIGGYBACK IV ONE (13:46)
[2020-03-08] MEDS ORDERED: VANCOMYCIN HCL ONE (13:57)
[2020-03-08] MEDS ORDERED: NS 250 ML IV 250 ML IV ONE (13:57)
[2020-03-08 15:18] LABS: BILIRUBIN,URINE NEGATIVE (NEGATIVE); BLOOD/HEMOGLOBIN,URINE NEGATIVE (NEGATIVE); GLUCOSE, URINE NEGATIVE (NEGATIVE); KETONES,URINE NEGATIVE (NEGATIVE); LEUKOCYTE ESTERASE ,URINE NEGATIVE (NEGATIVE); NITRITES,URINE NEGATIVE (NEGATIVE); PROTEIN,URINE 2+ (NEGATIVE); UROBILINOGEN,URINE NORMAL (NORMAL)
[2020-03-08 15:40] LABS: APPEARANCE,URINE CLEAR (CLEAR); COLOR,URINE PALE YELLOW (YELLOW)
[2020-03-08 15:41] LABS: AMORPHOUS SEDIMENT,UR TRACE /HPF (NEGATIVE); BACTERIA,URINE NEGATIVE /HPF (NEGATIVE); RBC,URINE NONE SEEN /HPF (0-3); SQUAMOUS EPITHELIAL CELL,UR RARE /HPF (NEGATIVE)
[2020-03-08] MEDS ORDERED: HYDROGEN PEROXIDE 3% ONE (16:23)
[2020-03-08] MEDS ORDERED: ZESTRIL TAB 20 MG ONE (20:29)
[2020-03-08] MEDS: MEGACE PO SCH (20:57)
[2020-03-08] MEDS: ZESTRIL TAB 20 MG PO SCH (20:58)
[2020-03-08] MEDS ORDERED: MEGESTROL 40 MG PO SCH (21:00)
[2020-03-08] MEDS ORDERED: KLOR-CON PO PRN (21:02)
[2020-03-08] MEDS ORDERED: POTASSIUM CHL 60 MEQ/NS 0.45% 500 ML IV PRN (21:02)
[2020-03-08] MEDS ORDERED: K-DUR TAB 20 MEQ PO PRN (21:02)
[2020-03-08] MEDS ORDERED: MAGNESIUM SULFATE 1 GRAM/100 mL PREMIX 1 GM/100 ML BAG IV PRN (21:02)
[2020-03-08] MEDS ORDERED: POTASSIUM CHL 40 MEQ/NS 0.45% 500 ML IV PRN (21:02)
[2020-03-08] MEDS ORDERED: MICRO K EXTEN CAP 10 MEQ PO PRN (21:02)
[2020-03-08] MEDS ORDERED: POTASSIUM CHLORIDE LIQ 20 MEQ UDC PO PRN (21:02)
[2020-03-08] MEDS ORDERED: K-RIDER 10 MEQ/NS 100 ML 10 MEQ/100 ML BAG IV PRN (21:02)
[2020-03-09] MEDS ORDERED: MILK OF MAGNESIA PO PRN (04:19)
[2020-03-09 06:23] LABS: BASOPHILS # (AUTO) 0.1 X10^3/uL (0.0-0.1); BASOPHILS % (AUTO) 0.9 % (0.2-1.0); EOSINOPHILS # (AUTO) 0.1 x10^3/uL (0.0-0.2); EOSINOPHILS % (AUTO) 0.7 % (0.9-2.9); HEMATOCRIT 30.4 % (36.0-47.0); LYMPHOCYTES # (AUTO) 2.1 X10^3/uL (1.3-2.9); LYMPHOCYTES % (AUTO) 18.9 % (21.0-51.0); MEAN CORPUSCULAR HEMOGLOBIN 29.6 pg (27.0-34.0); MEAN CORPUSCULAR HGB CONC 32.8 g/dL (33.0-35.0); MEAN CORPUSCULAR VOLUME 90.5 fL (80.0-100.0); MEAN PLATELET VOLUME 7.8 fL (7.4-11.0); MONOCYTES # (AUTO) 0.7 x10^3/uL (0.3-0.8); MONOCYTES % (AUTO) 6.7 % (0.0-13.0); NEUTROPHILS # (AUTO) 8.1 x10^3/uL (2.2-4.8); NEUTROPHILS % (AUTO) 72.8 % (42.0-75.0); PLATELET COUNT 307 X10^3/uL (150.0-450.0); RED BLOOD COUNT 3.36 X10^6/uL (3.5-5.4); RED CELL DISTRIBUTION WIDTH 17.3 % (11.6-16.5); WHITE BLOOD COUNT 11.2 X10^3/uL (3.6-10.0)
[2020-03-09 06:35] LABS: ALANINE AMINOTRANSFERASE 16 Units/L (12-78); ALBUMIN 2.5 g/dL (3.4-5.0); ALKALINE PHOSPHATASE 66 Units/L (46-116); ASPARTATE AMINO TRANSFERASE 23 Units/L (15-37); BLOOD UREA NITROGEN 9 mg/dL (7-18); CALCIUM 8.5 mg/dL (8.5-10.1); CARBON DIOXIDE 24.6 mmol/L (21-32); CHLORIDE 107 mmol/L (98-107); COR CA(FOR HYPOALB) 9.7 mg/dL (8.5-10.1); CREATININE 0.71 mg/dL (0.55-1.02); SODIUM 142 mmol/L (136-145); TOTAL PROTEIN 6.4 g/dL (6.4-8.2); eGFR NON BLACK RACES > 60 (>60)
[2020-03-09 06:38] LABS: LACTIC ACID 1.5 mmol/L (0.4-2.0)
[2020-03-09] MEDS ORDERED: ZESTRIL TAB 20 MG ONE ×2 (08:04→19:48)
--- NOTE | 2020-03-09 08:09 | DR.H&P ---
H&P - History & Physical for Day of: H&P Date: 03/08/20 - Chief Complaint Chief Complaint: fever, ams, infected bed sore - History of Present Illness History of Present Illness: PT IS 75 WF ER ADMISSION WITH PT'S FAMILY CO FEVER, AMS AND INFECTED BED SORE, SUSPECT SEPSIS R/O COVID 19. PT HAS PMH OF CVA WITH VASCULAR DEMENTIA, HTN, OA, ANEMIA. PT HAS RAPID COVID IN ER. PT ADMITTED FOR TREATMENT AND EVALUATION OF SEPSIS, - Past Medical History Past Medical History: Hypertension, Dyslipidemia, Dementia, Depression, Anxiety, CVA, Arthritis Additional Medical History: AFIB - Past Surgical History Surgical History: Hysterectomy - Family History Family Medical History: Cancer - Social History Does patient currently use any type of tobacco product: No Does any household member use tobacco: No Alcohol Use: None - Medications Home Medications: No Known Drug Allergies Allergy (Verified 01/23/20 18:03) CONTINUE taking the following medications alprazolam 1 mg PO DAILY 03/08/20 [History] amiodarone 200 mg PO DAILY 03/08/20 [History] clopidogrel 75 mg PO DAILY 03/08/20 [History] donepezil 10 mg PO DAILY 03/08/20 [History] hydrochlorothiazide 25 mg PO DAILY 03/08/20 [History] hydrocodone-acetaminophen 1 tab PO BID PRN 03/08/20 [History] lansoprazole 30 mg PO DAILY 03/08/20 [History] lisinopril 20 mg PO BID 03/08/20 [History] megestrol 400 mg PO DAILY 03/08/20 [History] metoprolol succinate 100 mg PO DAILY 03/08/20 [History] montelukast 10 mg PO DAILY 03/08/20 [History] rivaroxaban [Xarelto] 20 mg PO DAILY 03/08/20 [History] rosuvastatin 10 mg PO DAILY 03/08/20 [History] - Review of Systems Constitutional: Fever, Weakness, Malaise Eyes: No Symptoms Reported ENT: No Symptoms Reported Respiratory: No Symptoms Reported Cardiovascular: No Symptoms Reported Gastrointestinal: Other (POOR APPETITE) Genitourinary: Incontinence Musculoskeletal: Back Pain Skin: Wound Neurological: No Symptoms Reported - Physical Exam Vital Signs: Temperature 98.9 F Pulse Rate [Left Radial] 119 Pulse Rate 106 Respiratory Rate 22 Blood Pressure [Right Arm] 123/86 Blood Pressure 182/108 O2 Sat by Pulse Oximetry 99 Oriented: Person Eyes: Normal Ear: Normal Nose: Normal Throat: Dry Respiratory: RLL Diminished, LLL Diminished Cardiovascular: Tachycardia : Normal Auscultation: Bowel Sounds: Normal Palpation: Normal Tenderness: Normal Skin: Decreased Turgur, Wound Musculoskeletal: Right, Left, Leg, Back:Lumbar, Motor Deficit Mood Description: Calm Speech Pattern: Clear, Inappropriate - Assessment/Plan (1) Sepsis Status: Acute Plan: ADMIT, BC AND UC ON ADMISSION. IV HYDRATION, SURGICAL CONSULT FOR WOUND. IV ATBX, CONFIRM HOME MEDICATION. CXR ON ADMISSION, SUPPLEMENTAL O2 (2) Decubitus ulcer, stage 4 with infection Status: Acute (3) Fever Qualifiers: Fever type: due to other condition Qualified Code(s): R50.81 - Fever presenting with conditions classified elsewhere Status: Acute (4) Urinary tract infection Qualifiers: Urinary tract infection type: acute cystitis Hematuria presence: without hematuria Qualified Code(s): N30.00 - Acute cystitis without hematuria Status: Acute (5) Paroxysmal atrial fibrillation Status: Acute - Allergies Allergies/Adverse Reactions: Allergies Allergy/AdvReac Type Severity Reaction Status Date / Time No Known Drug Allergies Allergy Verified 01/23/20 18:03
[2020-03-09] MEDS: COLACE CAP 100 MG PO PRN ×2 (08:27→20:12)
[2020-03-09] MEDS: ASPIRIN EC 81 MG PO SCH (08:27)
[2020-03-09] MEDS: MICRO K EXTEN CAP 10 MEQ PO PRN ×2 (08:29→13:14)
[2020-03-09] MEDS: TOPROL XL PO SCH (08:29)
[2020-03-09] MEDS: PLAVIX PO SCH (08:29)
[2020-03-09] MEDS: SINGULAIR TAB 10 MG PO SCH (08:29)
[2020-03-09] MEDS: ZESTRIL TAB 20 MG PO SCH ×2 (08:30→20:11)
[2020-03-09] MEDS: PREVACID PO SCH (08:30)
[2020-03-09] MEDS: CORDARONE TAB 200 MG PO SCH (08:30)
[2020-03-09] MEDS: MEGACE PO SCH ×2 (08:30→20:11)
[2020-03-09 12:50] VITALS: BMI 19.5
[2020-03-09] MEDS ORDERED: NORCO 5/325 MG TAB ONE (13:03)
[2020-03-09] MEDS: NORCO 5/325 MG TAB PO PRN ×2 (13:15→20:13)
[2020-03-09] MEDS ORDERED: NS IRRIGATION* 500 ML IR ONE (15:22)
[2020-03-10 06:18] LABS: BASOPHILS # (AUTO) 0.1 X10^3/uL (0.0-0.1); BASOPHILS % (AUTO) 0.5 % (0.2-1.0); EOSINOPHILS # (AUTO) 0.1 x10^3/uL (0.0-0.2); EOSINOPHILS % (AUTO) 0.9 % (0.9-2.9); HEMATOCRIT 28.4 % (36.0-47.0); HEMOGLOBIN 9.4 g/dL (12.0-16.0); LYMPHOCYTES # (AUTO) 2.4 X10^3/uL (1.3-2.9); LYMPHOCYTES % (AUTO) 25.7 % (21.0-51.0); MEAN CORPUSCULAR HEMOGLOBIN 29.8 pg (27.0-34.0); MEAN CORPUSCULAR VOLUME 90.4 fL (80.0-100.0); MEAN PLATELET VOLUME 8.3 fL (7.4-11.0); MONOCYTES # (AUTO) 0.8 x10^3/uL (0.3-0.8); NEUTROPHILS # (AUTO) 6.2 x10^3/uL (2.2-4.8); NEUTROPHILS % (AUTO) 64.9 % (42.0-75.0); PLATELET COUNT 315 X10^3/uL (150.0-450.0); RED BLOOD COUNT 3.14 X10^6/uL (3.5-5.4); RED CELL DISTRIBUTION WIDTH 17.2 % (11.6-16.5); WHITE BLOOD COUNT 9.5 X10^3/uL (3.6-10.0)
[2020-03-10 06:28] LABS: ALANINE AMINOTRANSFERASE 13 Units/L (12-78); ALBUMIN 2.3 g/dL (3.4-5.0); ALKALINE PHOSPHATASE 57 Units/L (46-116); ASPARTATE AMINO TRANSFERASE 18 Units/L (15-37); BLOOD UREA NITROGEN 17 mg/dL (7-18); CALCIUM 8.4 mg/dL (8.5-10.1); CARBON DIOXIDE 26.2 mmol/L (21-32); CHLORIDE 109 mmol/L (98-107); COR CA(FOR HYPOALB) 9.8 mg/dL (8.5-10.1); CREATININE 0.96 mg/dL (0.55-1.02); SODIUM 142 mmol/L (136-145); TOTAL PROTEIN 6.2 g/dL (6.4-8.2); eGFR NON BLACK RACES > 60 (>60)
[2020-03-10] MEDS: NORCO 5/325 MG TAB PO PRN ×2 (09:00→18:26)
[2020-03-10] MEDS: ASPIRIN EC 81 MG PO SCH ×2 (11:31→18:33)
[2020-03-10] MEDS: TOPROL XL PO SCH ×2 (11:32→18:35)
[2020-03-10] MEDS: SINGULAIR TAB 10 MG PO SCH ×2 (11:32→18:35)
[2020-03-10] MEDS: PLAVIX PO SCH ×2 (11:35→18:34)
[2020-03-10] MEDS: ZESTRIL TAB 20 MG PO SCH ×2 (11:35→20:22)
[2020-03-10] MEDS: PREVACID PO SCH ×2 (11:35→18:34)
[2020-03-10] MEDS: MEGACE PO SCH ×2 (11:41→21:00)
[2020-03-10] MEDS: CORDARONE TAB 200 MG PO SCH ×2 (11:41→18:34)
[2020-03-10] MEDS: VALIUM INJ IVP PRN (12:24)
[2020-03-10] MEDS: MERREM VIAL 500 MG in NS 100 ML IV + SPIKE MINIBAG* 100 ML IV SCH ×2 (14:20→22:09)
[2020-03-10] MEDS ORDERED: BETADINE SOLN ONE (14:21)
[2020-03-10] MEDS ORDERED: LR 1000 ML IV 1,000 ML IV ONE (14:26)
[2020-03-10] MEDS ORDERED: DIPRIVAN VIAL ONE (14:36)
[2020-03-10] MEDS ORDERED: XYLOCAINE 2 % (PLAIN) ONE (14:36)
[2020-03-10] MEDS ORDERED: VERSED ONE (14:36)
[2020-03-10] MEDS ORDERED: XYLOCAINE 1 % (PLAIN) ONE (14:49)
[2020-03-10] MEDS ORDERED: ZESTRIL TAB 20 MG ONE (20:05)
[2020-03-10] MEDS: COLACE CAP 100 MG PO PRN (20:23)
[2020-03-11] MEDS: NORCO 5/325 MG TAB PO PRN ×4 (02:00→20:20)
[2020-03-11] MEDS: MERREM VIAL 500 MG in NS 100 ML IV + SPIKE MINIBAG* 100 ML IV SCH ×4 (05:51→21:31)
[2020-03-11 06:06] LABS: ALANINE AMINOTRANSFERASE 18 Units/L (12-78); ALBUMIN 2.4 g/dL (3.4-5.0); ALKALINE PHOSPHATASE 61 Units/L (46-116); ASPARTATE AMINO TRANSFERASE 22 Units/L (15-37); BLOOD UREA NITROGEN 13 mg/dL (7-18); CALCIUM 8.2 mg/dL (8.5-10.1); CARBON DIOXIDE 24.6 mmol/L (21-32); CHLORIDE 106 mmol/L (98-107); COR CA(FOR HYPOALB) 9.5 mg/dL (8.5-10.1); CREATININE 1.02 mg/dL (0.55-1.02); SODIUM 139 mmol/L (136-145); TOTAL PROTEIN 6.3 g/dL (6.4-8.2); eGFR NON BLACK RACES 56 (>60)
[2020-03-11 06:16] LABS: BASOPHILS # (AUTO) 0.1 X10^3/uL (0.0-0.1); BASOPHILS % (AUTO) 0.6 % (0.2-1.0); EOSINOPHILS # (AUTO) 0.1 x10^3/uL (0.0-0.2); EOSINOPHILS % (AUTO) 1.4 % (0.9-2.9); HEMATOCRIT 29.6 % (36.0-47.0); HEMOGLOBIN 9.8 g/dL (12.0-16.0); LYMPHOCYTES # (AUTO) 2.4 X10^3/uL (1.3-2.9); LYMPHOCYTES % (AUTO) 24.6 % (21.0-51.0); MEAN CORPUSCULAR HGB CONC 33.2 g/dL (33.0-35.0); MEAN CORPUSCULAR VOLUME 90.4 fL (80.0-100.0); MEAN PLATELET VOLUME 8.4 fL (7.4-11.0); MONOCYTES # (AUTO) 0.7 x10^3/uL (0.3-0.8); NEUTROPHILS # (AUTO) 6.5 x10^3/uL (2.2-4.8); NEUTROPHILS % (AUTO) 66.4 % (42.0-75.0); PLATELET COUNT 329 X10^3/uL (150.0-450.0); RED BLOOD COUNT 3.28 X10^6/uL (3.5-5.4); WHITE BLOOD COUNT 9.8 X10^3/uL (3.6-10.0)
[2020-03-11] MEDS ORDERED: ZESTRIL TAB 20 MG ONE ×2 (08:43→19:53)
[2020-03-11] MEDS: PREVACID PO SCH (09:03)
[2020-03-11] MEDS: MEGACE PO SCH ×2 (09:03→20:20)
[2020-03-11] MEDS: SINGULAIR TAB 10 MG PO SCH (09:03)
[2020-03-11] MEDS: CORDARONE TAB 200 MG PO SCH (09:07)
[2020-03-11] MEDS: PLAVIX PO SCH (09:07)
[2020-03-11] MEDS: ASPIRIN EC 81 MG PO SCH (09:07)
[2020-03-11] MEDS: TOPROL XL PO SCH (09:07)
[2020-03-11] MEDS: ZESTRIL TAB 20 MG PO SCH ×2 (09:08→20:20)
--- NOTE | 2020-03-11 12:49 | DR.PROGNOT ---
Hospital Progress Notes - Progress Note for Day of: Progress Note Date: 03/11/20 - Chief Complaint Chief Complaint: s/p excisional debridement of stage 4 sacral ulcer . alert and cooperative . dressingwas changed and packing was removed .. cleaned with H2O2 and repacked . - Past Medical Family Social History Past Med/Fam/Surg Hx: No changes since H&P Allergies: Allergies No Known Drug Allergies Allergy (Verified 01/23/20 18:03) - Review Of Systems ROS: No change since H&P - Vital Signs Vital Signs: Temperature 98.1 F Pulse Rate [Left Radial] 96 Pulse Rate 106 Respiratory Rate 20 Blood Pressure [Left Arm] 168/94 Blood Pressure [Right Arm] 136/91 Blood Pressure 156/80 O2 Sat by Pulse Oximetry 98 - Physical Exam Oriented: Normal, Person Eyes: Normal Ear: Normal Nose: Normal Throat: Dry Cardiovascular: Tachycardia : Normal GI:Auscultation: Normal GI:Palpation: Normal GI: Tenderness: Normal Skin: Decreased Turgur, Wound (stage 4 sacral ulcer 8x6 cm with undermined skin posteriorly ... no necrosis or abscess formation .) Musculoskeletal: Right, Left, Leg, Back:Lumbar, Motor Deficit Mood Description: Calm Speech Pattern: Clear, Appropriate - Laboratory and Diagnostics Result Diagrams: 03/11/20 05:15 03/11/20 05:15 Labs: 03/10/20 14:50 Sacral Gram Stain - Final 03/10/20 14:50 Sacral Wound Culture - Preliminary 03/08/20 12:56 Sacral Gram Stain - Final 03/08/20 12:56 Sacral Wound Culture - Final Klebsiella Pneumoniae 03/08/20 12:25 Blood Blood Culture - Preliminary 03/08/20 12:19 Blood Blood Culture - Preliminary Laboratory WBC 9.8 X10^3/uL (3.6-10.0) 03/11/20 05:15 RBC 3.28 X10^6/uL (3.5-5.4) L 03/11/20 05:15 Hgb 9.8 g/dL (12.0-16.0) L 03/11/20 05:15 Hct 29.6 % (36.0-47.0) L 03/11/20 05:15 MCV 90.4 fL (80.0-100.0) 03/11/20 05:15 MCH 30.0 pg (27.0-34.0) 03/11/20 05:15 MCHC 33.2 g/dL (33.0-35.0) 03/11/20 05:15 RDW 17.0 % (11.6-16.5) H 03/11/20 05:15 Plt Count 329 X10^3/uL (150.0-450.0) 03/11/20 05:15 MPV 8.4 fL (7.4-11.0) 03/11/20 05:15 Neut % (Auto) 66.4 % (42.0-75.0) 03/11/20 05:15 Lymph % (Auto) 24.6 % (21.0-51.0) 03/11/20 05:15 [place] % (Auto) 7.0 % (0.0-13.0) 03/11/20 05:15 Eos % (Auto) 1.4 % (0.9-2.9) 03/11/20 05:15 Baso % (Auto) 0.6 % (0.2-1.0) 03/11/20 05:15 Neut # (Auto) 6.5 x10^3/uL (2.2-4.8) H 03/11/20 05:15 Lymph # (Auto) 2.4 X10^3/uL (1.3-2.9) 03/11/20 05:15 [place] # (Auto) 0.7 x10^3/uL (0.3-0.8) 03/11/20 05:15 Eos # (Auto) 0.1 x10^3/uL (0.0-0.2) 03/11/20 05:15 Baso # (Auto) 0.1 X10^3/uL (0.0-0.1) 03/11/20 05:15 Absolute Nucleated RBC 0.1 /100WBC 03/11/20 05:15 PT 22.9 SECONDS (11.8-14.3) 03/08/20 12:19 INR Target Range - 03/08/20 12:19 INR 2.09 (0.8-1.3) H 03/08/20 12:19 Sodium 139 mmol/L (136-145) 03/11/20 05:15 Corrected Sodium TNP 03/11/20 05:15 Potassium 4.5 mmol/L (3.5-5.1) 03/11/20 05:15 Chloride 106 mmol/L (98-107) 03/11/20 05:15 Carbon Dioxide 24.6 mmol/L (21-32) 03/11/20 05:15 BUN 13 mg/dL (7-18) 03/11/20 05:15 Creatinine 1.02 mg/dL (0.55-1.02) 03/11/20 05:15 Est GFR (MDRD) Af Amer > 60 (>60) 03/11/20 05:15 Est GFR (MDRD) Non-Af 56 (>60) L 03/11/20 05:15 Glucose 89 mg/dL (65-99) 03/11/20 05:15 Lactic Acid 1.5 mmol/L (0.4-2.0) 03/09/20 06:00 Calcium 8.2 mg/dL (8.5-10.1) L 03/11/20 05:15 Corrected Calcium 9.5 mg/dL (8.5-10.1) 03/11/20 05:15 Phosphorus 2.6 mg/dL (2.6-4.7) 03/08/20 12:19 Magnesium 2.1 mg/dL (1.7-2.9) 03/08/20 12:19 Total Bilirubin 0.40 mg/dL (0.2-1.0) 03/11/20 05:15 AST 22 Units/L (15-37) 03/11/20 05:15 ALT 18 Units/L (12-78) 03/11/20 05:15 Alkaline Phosphatase 61 Units/L (46-116) 03/11/20 05:15 Total Protein 6.3 g/dL (6.4-8.2) L 03/11/20 05:15 Albumin 2.4 g/dL (3.4-5.0) L 03/11/20 05:15 Globulin 3.9 g/dL (2.5-4.5) 03/11/20 05:15 Albumin/Globulin Ratio 0.6 Ratio (1.1-2.1) L 03/11/20 05:15 Lipase 65 Units/L (73-393) L 03/08/20 12:19 Specimen Type Clean catch urine 03/08/20 14:42 Urine Color Pale yellow (YELLOW) 03/08/20 14:42 Urine Appearance Clear (CLEAR) 03/08/20 14:42 Urine pH 7.0 (5.0 - 8.0) 03/08/20 14:42 Ur Specific [place] 1.010 (1.000-1.030) 03/08/20 14:42 Urine Protein 2+ (NEGATIVE) 03/08/20 14:42 Urine Glucose (UA) Negative (NEGATIVE) 03/08/20 14:42 Urine Ketones Negative (NEGATIVE) 03/08/20 14:42 Urine Occult Blood Negative (NEGATIVE) 03/08/20 14:42 Urine Nitrite Negative (NEGATIVE) 03/08/20 14:42 Urine Bilirubin Negative (NEGATIVE) 03/08/20 14:42 Urine Urobilinogen Normal (NORMAL) 03/08/20 14:42 Ur Leukocyte Esterase Negative (NEGATIVE) 03/08/20 14:42 Urine RBC None seen /HPF (0-3) 03/08/20 14:42 Urine WBC None seen /HPF (0-5) 03/08/20 14:42 Ur Squamous Epith Cells Rare /HPF (NEGATIVE) 03/08/20 14:42 Amorphous Sediment Trace /HPF (NEGATIVE) 03/08/20 14:42 Urine Bacteria Negative /HPF (NEGATIVE) 03/08/20 14:42 Ur Culture Indicated? No/not indicated 03/08/20 14:42 SARS-CoV-2 (PCR) Negative (NEGATIVE) 03/08/20 14:00 Tissue Pathology To follow 03/10/20 15:05 - Assessment and Plan 1: stage 4 sacral decubitus ulcer 8x6 cm . S/P debridement . same local care and IV ATB . nutritional support . change position . arrange for wound Vac .. - Problem Patient Problems: Patient Problems Decubitus ulcer, stage 4 with infection (Acute) L89.94, L08.9 Fever (Acute) R50.9 Sepsis (Acute) A41.9 Urinary tract infection (Acute) N39.0
[2020-03-12] MEDS: NORCO 5/325 MG TAB PO PRN ×2 (03:30→09:02)
[2020-03-12 06:07] LABS: BASOPHILS # (AUTO) 0.1 X10^3/uL (0.0-0.1); EOSINOPHILS # (AUTO) 0.1 x10^3/uL (0.0-0.2); EOSINOPHILS % (AUTO) 1.4 % (0.9-2.9); HEMATOCRIT 27.4 % (36.0-47.0); HEMOGLOBIN 9.1 g/dL (12.0-16.0); LYMPHOCYTES # (AUTO) 2.9 X10^3/uL (1.3-2.9); LYMPHOCYTES % (AUTO) 31.5 % (21.0-51.0); MEAN CORPUSCULAR HEMOGLOBIN 29.8 pg (27.0-34.0); MEAN CORPUSCULAR HGB CONC 33.1 g/dL (33.0-35.0); MEAN CORPUSCULAR VOLUME 90.2 fL (80.0-100.0); MEAN PLATELET VOLUME 8.3 fL (7.4-11.0); MONOCYTES # (AUTO) 0.7 x10^3/uL (0.3-0.8); MONOCYTES % (AUTO) 7.9 % (0.0-13.0); NEUTROPHILS # (AUTO) 5.3 x10^3/uL (2.2-4.8); NEUTROPHILS % (AUTO) 58.2 % (42.0-75.0); PLATELET COUNT 286 X10^3/uL (150.0-450.0); RED BLOOD COUNT 3.04 X10^6/uL (3.5-5.4); WHITE BLOOD COUNT 9.1 X10^3/uL (3.6-10.0)
[2020-03-12 06:12] LABS: ALANINE AMINOTRANSFERASE 20 Units/L (12-78); ALBUMIN 2.2 g/dL (3.4-5.0); ALKALINE PHOSPHATASE 53 Units/L (46-116); ASPARTATE AMINO TRANSFERASE 26 Units/L (15-37); BLOOD UREA NITROGEN 12 mg/dL (7-18); CALCIUM 8.3 mg/dL (8.5-10.1); CHLORIDE 108 mmol/L (98-107); COR CA(FOR HYPOALB) 9.7 mg/dL (8.5-10.1); CREATININE 0.86 mg/dL (0.55-1.02); SODIUM 140 mmol/L (136-145); TOTAL PROTEIN 5.9 g/dL (6.4-8.2); eGFR NON BLACK RACES > 60 (>60)
[2020-03-12] MEDS: MERREM VIAL 500 MG in NS 100 ML IV + SPIKE MINIBAG* 100 ML IV SCH ×3 (06:18→21:30)
[2020-03-12] MEDS ORDERED: ZESTRIL TAB 20 MG ONE ×2 (08:49→19:49)
[2020-03-12] MEDS: MEGACE PO SCH ×2 (09:03→21:30)
[2020-03-12] MEDS: SINGULAIR TAB 10 MG PO SCH (09:04)
[2020-03-12] MEDS: TOPROL XL PO SCH (09:04)
[2020-03-12] MEDS: ASPIRIN EC 81 MG PO SCH (09:04)
[2020-03-12] MEDS: CORDARONE TAB 200 MG PO SCH (09:05)
[2020-03-12] MEDS: ZESTRIL TAB 20 MG PO SCH ×2 (09:05→21:30)
[2020-03-12] MEDS: PREVACID PO SCH (09:05)
[2020-03-12] MEDS: PLAVIX PO SCH (09:05)
[2020-03-12] MEDS: MORPHINE SULFATE INJ 2 MG INJ IVP PRN ×2 (12:23→21:32)
[2020-03-12] MEDS: VALIUM INJ IVP PRN (20:00)
[2020-03-13] MEDS: MERREM VIAL 500 MG in NS 100 ML IV + SPIKE MINIBAG* 100 ML IV SCH ×3 (06:34→22:04)
[2020-03-13 06:54] LABS: BASOPHILS # (AUTO) 0.1 X10^3/uL (0.0-0.1); BASOPHILS % (AUTO) 0.6 % (0.2-1.0); EOSINOPHILS # (AUTO) 0.1 x10^3/uL (0.0-0.2); EOSINOPHILS % (AUTO) 1.4 % (0.9-2.9); HEMATOCRIT 26.8 % (36.0-47.0); HEMOGLOBIN 8.8 g/dL (12.0-16.0); LYMPHOCYTES # (AUTO) 3.1 X10^3/uL (1.3-2.9); LYMPHOCYTES % (AUTO) 29.9 % (21.0-51.0); MEAN CORPUSCULAR HGB CONC 32.9 g/dL (33.0-35.0); MEAN CORPUSCULAR VOLUME 91.1 fL (80.0-100.0); MEAN PLATELET VOLUME 8.7 fL (7.4-11.0); MONOCYTES # (AUTO) 0.7 x10^3/uL (0.3-0.8); MONOCYTES % (AUTO) 6.3 % (0.0-13.0); NEUTROPHILS # (AUTO) 6.5 x10^3/uL (2.2-4.8); NEUTROPHILS % (AUTO) 61.8 % (42.0-75.0); PLATELET COUNT 315 X10^3/uL (150.0-450.0); RED BLOOD COUNT 2.94 X10^6/uL (3.5-5.4); RED CELL DISTRIBUTION WIDTH 16.8 % (11.6-16.5); WHITE BLOOD COUNT 10.4 X10^3/uL (3.6-10.0)
[2020-03-13 07:07] LABS: ALANINE AMINOTRANSFERASE 25 Units/L (12-78); ALBUMIN 2.3 g/dL (3.4-5.0); ALKALINE PHOSPHATASE 51 Units/L (46-116); ASPARTATE AMINO TRANSFERASE 28 Units/L (15-37); BLOOD UREA NITROGEN 10 mg/dL (7-18); CARBON DIOXIDE 24.5 mmol/L (21-32); CHLORIDE 108 mmol/L (98-107); COR CA(FOR HYPOALB) 9.4 mg/dL (8.5-10.1); CREATININE 0.75 mg/dL (0.55-1.02); SODIUM 141 mmol/L (136-145); eGFR NON BLACK RACES > 60 (>60)
[2020-03-13] MEDS: MORPHINE SULFATE INJ 2 MG INJ IVP PRN ×2 (07:59→23:55)
[2020-03-13] MEDS ORDERED: ZESTRIL TAB 20 MG ONE ×2 (08:17→19:27)
[2020-03-13] MEDS: ZESTRIL TAB 20 MG PO SCH ×2 (08:26→20:05)
[2020-03-13] MEDS: CORDARONE TAB 200 MG PO SCH (08:27)
[2020-03-13] MEDS: PREVACID PO SCH (08:27)
[2020-03-13] MEDS: TOPROL XL PO SCH (08:28)
[2020-03-13] MEDS: MEGACE PO SCH ×2 (08:28→20:06)
[2020-03-13] MEDS: ASPIRIN EC 81 MG PO SCH (08:28)
[2020-03-13] MEDS: SINGULAIR TAB 10 MG PO SCH (08:29)
[2020-03-13] MEDS: PLAVIX PO SCH (08:29)
[2020-03-13] MEDS ORDERED: PROCALAMINE 3 % 1,000 ML IV SCH (10:00)
--- NOTE | 2020-03-13 10:20 | DR.PROGNOT ---
Hospital Progress Notes - Progress Note for Day of: Progress Note Date: 03/13/20 - Chief Complaint Chief Complaint: s/p excisional debridement of stage 4 sacral ulcer . final cultures showed Klebsiella . has wound vac in place . - Past Medical Family Social History Past Med/Fam/Surg Hx: No changes since H&P Allergies: Allergies No Known Drug Allergies Allergy (Verified 01/23/20 18:03) - Review Of Systems ROS: No change since H&P - Vital Signs Vital Signs: Temperature 98.9 F Pulse Rate [Left Radial] 121 Pulse Rate 106 Respiratory Rate 18 Blood Pressure [Left Arm] 168/94 Blood Pressure [Right Arm] 180/89 Blood Pressure 156/80 O2 Sat by Pulse Oximetry 96 - Physical Exam Oriented: Normal, Person Eyes: Normal Ear: Normal Nose: Normal Throat: Dry Cardiovascular: Tachycardia : Normal GI:Auscultation: Normal GI:Palpation: Normal GI: Tenderness: Normal Skin: Decreased Turgur, Wound (stage 4 sacral ulcer 8x6 cm with undermined skin posteriorly ... no necrosis or abscess formation .) Musculoskeletal: Right, Left, Leg, Back:Lumbar, Motor Deficit Mood Description: Calm Speech Pattern: Clear, Appropriate - Laboratory and Diagnostics Result Diagrams: 03/13/20 05:59 03/13/20 05:59 Labs: 03/10/20 14:50 Sacral Gram Stain - Final 03/10/20 14:50 Sacral Wound Culture - Final Klebsiella Pneumoniae 03/08/20 12:56 Sacral Gram Stain - Final 03/08/20 12:56 Sacral Wound Culture - Final Klebsiella Pneumoniae 03/08/20 12:25 Blood Blood Culture - Preliminary 03/08/20 12:19 Blood Blood Culture - Preliminary Laboratory WBC 10.4 X10^3/uL (3.6-10.0) H 03/13/20 05:59 RBC 2.94 X10^6/uL (3.5-5.4) L 03/13/20 05:59 Hgb 8.8 g/dL (12.0-16.0) L 03/13/20 05:59 Hct 26.8 % (36.0-47.0) L 03/13/20 05:59 MCV 91.1 fL (80.0-100.0) 03/13/20 05:59 MCH 30.0 pg (27.0-34.0) 03/13/20 05:59 MCHC 32.9 g/dL (33.0-35.0) L 03/13/20 05:59 RDW 16.8 % (11.6-16.5) H 03/13/20 05:59 Plt Count 315 X10^3/uL (150.0-450.0) 03/13/20 05:59 MPV 8.7 fL (7.4-11.0) 03/13/20 05:59 Neut % (Auto) 61.8 % (42.0-75.0) 03/13/20 05:59 Lymph % (Auto) 29.9 % (21.0-51.0) 03/13/20 05:59 [place] % (Auto) 6.3 % (0.0-13.0) 03/13/20 05:59 Eos % (Auto) 1.4 % (0.9-2.9) 03/13/20 05:59 Baso % (Auto) 0.6 % (0.2-1.0) 03/13/20 05:59 Neut # (Auto) 6.5 x10^3/uL (2.2-4.8) H 03/13/20 05:59 Lymph # (Auto) 3.1 X10^3/uL (1.3-2.9) H 03/13/20 05:59 [place] # (Auto) 0.7 x10^3/uL (0.3-0.8) 03/13/20 05:59 Eos # (Auto) 0.1 x10^3/uL (0.0-0.2) 03/13/20 05:59 Baso # (Auto) 0.1 X10^3/uL (0.0-0.1) 03/13/20 05:59 Absolute Nucleated RBC 0.0 /100WBC 03/13/20 05:59 PT 22.9 SECONDS (11.8-14.3) 03/08/20 12:19 INR Target Range - 03/08/20 12:19 INR 2.09 (0.8-1.3) H 03/08/20 12:19 Sodium 141 mmol/L (136-145) 03/13/20 05:59 Corrected Sodium TNP 03/13/20 05:59 Potassium 4.0 mmol/L (3.5-5.1) 03/13/20 05:59 Chloride 108 mmol/L (98-107) H 03/13/20 05:59 Carbon Dioxide 24.5 mmol/L (21-32) 03/13/20 05:59 BUN 10 mg/dL (7-18) 03/13/20 05:59 Creatinine 0.75 mg/dL (0.55-1.02) 03/13/20 05:59 Est GFR (MDRD) Af Amer > 60 (>60) 03/13/20 05:59 Est GFR (MDRD) Non-Af > 60 (>60) 03/13/20 05:59 Glucose 81 mg/dL (65-99) 03/13/20 05:59 Lactic Acid 1.5 mmol/L (0.4-2.0) 03/09/20 06:00 Calcium 8.0 mg/dL (8.5-10.1) L 03/13/20 05:59 Corrected Calcium 9.4 mg/dL (8.5-10.1) 03/13/20 05:59 Phosphorus 2.6 mg/dL (2.6-4.7) 03/08/20 12:19 Magnesium 2.1 mg/dL (1.7-2.9) 03/08/20 12:19 Total Bilirubin 0.20 mg/dL (0.2-1.0) 03/13/20 05:59 AST 28 Units/L (15-37) 03/13/20 05:59 ALT 25 Units/L (12-78) 03/13/20 05:59 Alkaline Phosphatase 51 Units/L (46-116) 03/13/20 05:59 Total Protein 6.0 g/dL (6.4-8.2) L 03/13/20 05:59 Albumin 2.3 g/dL (3.4-5.0) L 03/13/20 05:59 Globulin 3.7 g/dL (2.5-4.5) 03/13/20 05:59 Albumin/Globulin Ratio 0.6 Ratio (1.1-2.1) L 03/13/20 05:59 Lipase 65 Units/L (73-393) L 03/08/20 12:19 Specimen Type Clean catch urine 03/08/20 14:42 Urine Color Pale yellow (YELLOW) 03/08/20 14:42 Urine Appearance Clear (CLEAR) 03/08/20 14:42 Urine pH 7.0 (5.0 - 8.0) 03/08/20 14:42 Ur Specific [place] 1.010 (1.000-1.030) 03/08/20 14:42 Urine Protein 2+ (NEGATIVE) 03/08/20 14:42 Urine Glucose (UA) Negative (NEGATIVE) 03/08/20 14:42 Urine Ketones Negative (NEGATIVE) 03/08/20 14:42 Urine Occult Blood Negative (NEGATIVE) 03/08/20 14:42 Urine Nitrite Negative (NEGATIVE) 03/08/20 14:42 Urine Bilirubin Negative (NEGATIVE) 03/08/20 14:42 Urine Urobilinogen Normal (NORMAL) 03/08/20 14:42 Ur Leukocyte Esterase Negative (NEGATIVE) 03/08/20 14:42 Urine RBC None seen /HPF (0-3) 03/08/20 14:42 Urine WBC None seen /HPF (0-5) 03/08/20 14:42 Ur Squamous Epith Cells Rare /HPF (NEGATIVE) 03/08/20 14:42 Amorphous Sediment Trace /HPF (NEGATIVE) 03/08/20 14:42 Urine Bacteria Negative /HPF (NEGATIVE) 03/08/20 14:42 Ur Culture Indicated? No/not indicated 03/08/20 14:42 SARS-CoV-2 (PCR) Negative (NEGATIVE) 03/08/20 14:00 Tissue Pathology To follow 03/10/20 15:05 - Assessment and Plan 1: stage 4 sacral decubitus ulcer 8x6 cm . S/P debridement . same local care and IV ATB . nutritional support . change position . keep wound Vac for few weeks .. - Problem Patient Problems: Patient Problems Decubitus ulcer, stage 4 with infection (Acute) L89.94, L08.9 Fever (Acute) R50.9 Sepsis (Acute) A41.9 Urinary tract infection (Acute) N39.0
--- NOTE | 2020-03-13 11:51 | PCM.PROG ---
Progress Note - Progress Note for Day of Date of Exam: 03/13/20 - Subjective Subjective: IS A PATIENT OF . SHE IS BEING TREATED FOR A STAGE 4 DECUBITUS ULCER AND A URINARY TRACT INFECTION. WOUND WAS DEBRIDED BY . WOUND GREW OUT KLEBSIELLA. SHE HAS A WOUND VAC IN PLACE. TODAY, SHE IS ALERT AND ORIENTED, LYING IN BED ON MORNING ROUNDS. SHE REPORTS WEAKNESS AND DECREASED APPETITE TODAY. HER VITALS THIS MORNING ARE: [id number]/89. LABS WERE OBTAINED. ABNORMAL LAB VALUES INCLUDE THE FOLLOWING: WBC 10.4, RBC 2.94, HGB 8.8, HCT 26.8, CHLORIDE 108, CALCIUM 8.0, TOTAL PROTEIN 6.0, ALBUMIN 2.3. BLOOD CULTURES ARE PENDING. SHE IS CURRENTLY RECEIVING MEROPENEM 500MG IV Q8H, NORCO 5/325MG PO Q6H PRN, MORPHINE 1-2MG IV Q4H PRN, THE POTASSIUM AND MAGNESIUM PROTOCOLS, AND HOME MEDICATIONS WERE RESUMED. WE WILL CONTINUE WITH CURRENT PLAN OF CARE TODAY AND ADD PROCALAMINE AT 40 ML/HR. OTHERWISE, WE PLAN TO FOLLOW UP WITH AM LABS AND CONTINUE TO MONITOR. - Past Medical Family Social History Past Med/Fam/Surg Hx: No changes since H&P Allergies: Allergies No Known Drug Allergies Allergy (Verified 01/23/20 18:03) - Review of Systems ROS: No change since H&P - Vital Signs and I&O's Vital Signs: Temperature 98.9 F Pulse Rate [Left Radial] 121 Pulse Rate 106 Respiratory Rate 18 Blood Pressure [Left Arm] 168/94 Blood Pressure [Right Arm] 180/89 Blood Pressure 156/80 O2 Sat by Pulse Oximetry 96 Intake and Output: Intake & Output 03/10/20 03/11/20 03/12/20 03/13/20 11:59 11:59 11:59 11:59 Intake Total 1220 / 1220 2104 / 2104 2133 / 2133 1496 / 1496 Output Total 1675 / 1675 1299 / 1299 1050 / 1050 2100 / 2100 Balance -455 / -455 805 / 805 1083 / 1083 -604 / -604 - Physical Exam Oriented: Normal, Person Eyes: Normal Ear: Normal Nose: Normal Throat: Dry Respiratory: Generalized, Diminished Cardiovascular: Tachycardia : Normal Auscultation: Bowel Sounds: Normal Palpation: Normal Tenderness: Normal Skin: Decreased Turgur, Wound (stage 4 sacral ulcer 8x6 cm with undermined skin posteriorly ... no necrosis or abscess formation .) Musculoskeletal: Right, Left, Leg, Back:Lumbar, Motor Deficit Mood Description: Calm Speech Pattern: Clear, Appropriate - Laboratory and Diagnostics Result Diagrams: 03/13/20 05:59 03/13/20 05:59 Labs: 03/10/20 14:50 Sacral Gram Stain - Final 03/10/20 14:50 Sacral Wound Culture - Final Klebsiella Pneumoniae 03/08/20 12:56 Sacral Gram Stain - Final 03/08/20 12:56 Sacral Wound Culture - Final Klebsiella Pneumoniae 03/08/20 12:25 Blood Blood Culture - Preliminary 03/08/20 12:19 Blood Blood Culture - Preliminary Laboratory WBC 10.4 X10^3/uL (3.6-10.0) H 03/13/20 05:59 RBC 2.94 X10^6/uL (3.5-5.4) L 03/13/20 05:59 Hgb 8.8 g/dL (12.0-16.0) L 03/13/20 05:59 Hct 26.8 % (36.0-47.0) L 03/13/20 05:59 MCV 91.1 fL (80.0-100.0) 03/13/20 05:59 MCH 30.0 pg (27.0-34.0) 03/13/20 05:59 MCHC 32.9 g/dL (33.0-35.0) L 03/13/20 05:59 RDW 16.8 % (11.6-16.5) H 03/13/20 05:59 Plt Count 315 X10^3/uL (150.0-450.0) 03/13/20 05:59 MPV 8.7 fL (7.4-11.0) 03/13/20 05:59 Neut % (Auto) 61.8 % (42.0-75.0) 03/13/20 05:59 Lymph % (Auto) 29.9 % (21.0-51.0) 03/13/20 05:59 [place] % (Auto) 6.3 % (0.0-13.0) 03/13/20 05:59 Eos % (Auto) 1.4 % (0.9-2.9) 03/13/20 05:59 Baso % (Auto) 0.6 % (0.2-1.0) 03/13/20 05:59 Neut # (Auto) 6.5 x10^3/uL (2.2-4.8) H 03/13/20 05:59 Lymph # (Auto) 3.1 X10^3/uL (1.3-2.9) H 03/13/20 05:59 [place] # (Auto) 0.7 x10^3/uL (0.3-0.8) 03/13/20 05:59 Eos # (Auto) 0.1 x10^3/uL (0.0-0.2) 03/13/20 05:59 Baso # (Auto) 0.1 X10^3/uL (0.0-0.1) 03/13/20 05:59 Absolute Nucleated RBC 0.0 /100WBC 03/13/20 05:59 PT 22.9 SECONDS (11.8-14.3) 03/08/20 12:19 INR Target Range - 03/08/20 12:19 INR 2.09 (0.8-1.3) H 03/08/20 12:19 Sodium 141 mmol/L (136-145) 03/13/20 05:59 Corrected Sodium TNP 03/13/20 05:59 Potassium 4.0 mmol/L (3.5-5.1) 03/13/20 05:59 Chloride 108 mmol/L (98-107) H 03/13/20 05:59 Carbon Dioxide 24.5 mmol/L (21-32) 03/13/20 05:59 BUN 10 mg/dL (7-18) 03/13/20 05:59 Creatinine 0.75 mg/dL (0.55-1.02) 03/13/20 05:59 Est GFR (MDRD) Af Amer > 60 (>60) 03/13/20 05:59 Est GFR (MDRD) Non-Af > 60 (>60) 03/13/20 05:59 Glucose 81 mg/dL (65-99) 03/13/20 05:59 Lactic Acid 1.5 mmol/L (0.4-2.0) 03/09/20 06:00 Calcium 8.0 mg/dL (8.5-10.1) L 03/13/20 05:59 Corrected Calcium 9.4 mg/dL (8.5-10.1) 03/13/20 05:59 Phosphorus 2.6 mg/dL (2.6-4.7) 03/08/20 12:19 Magnesium 2.1 mg/dL (1.7-2.9) 03/08/20 12:19 Total Bilirubin 0.20 mg/dL (0.2-1.0) 03/13/20 05:59 AST 28 Units/L (15-37) 03/13/20 05:59 ALT 25 Units/L (12-78) 03/13/20 05:59 Alkaline Phosphatase 51 Units/L (46-116) 03/13/20 05:59 Total Protein 6.0 g/dL (6.4-8.2) L 03/13/20 05:59 Albumin 2.3 g/dL (3.4-5.0) L 03/13/20 05:59 Globulin 3.7 g/dL (2.5-4.5) 03/13/20 05:59 Albumin/Globulin Ratio 0.6 Ratio (1.1-2.1) L 03/13/20 05:59 Lipase 65 Units/L (73-393) L 03/08/20 12:19 Specimen Type Clean catch urine 03/08/20 14:42 Urine Color Pale yellow (YELLOW) 03/08/20 14:42 Urine Appearance Clear (CLEAR) 03/08/20 14:42 Urine pH 7.0 (5.0 - 8.0) 03/08/20 14:42 Ur Specific [place] 1.010 (1.000-1.030) 03/08/20 14:42 Urine Protein 2+ (NEGATIVE) 03/08/20 14:42 Urine Glucose (UA) Negative (NEGATIVE) 03/08/20 14:42 Urine Ketones Negative (NEGATIVE) 03/08/20 14:42 Urine Occult Blood Negative (NEGATIVE) 03/08/20 14:42 Urine Nitrite Negative (NEGATIVE) 03/08/20 14:42 Urine Bilirubin Negative (NEGATIVE) 03/08/20 14:42 Urine Urobilinogen Normal (NORMAL) 03/08/20 14:42 Ur Leukocyte Esterase Negative (NEGATIVE) 03/08/20 14:42 Urine RBC None seen /HPF (0-3) 03/08/20 14:42 Urine WBC None seen /HPF (0-5) 03/08/20 14:42 Ur Squamous Epith Cells Rare /HPF (NEGATIVE) 03/08/20 14:42 Amorphous Sediment Trace /HPF (NEGATIVE) 03/08/20 14:42 Urine Bacteria Negative /HPF (NEGATIVE) 03/08/20 14:42 Ur Culture Indicated? No/not indicated 03/08/20 14:42 SARS-CoV-2 (PCR) Negative (NEGATIVE) 03/08/20 14:00 Tissue Pathology To follow 03/10/20 15:05 - Plan (1) Decubitus ulcer, stage 4 with infection Status: Acute Plan: CONTINUE IV ANTIBIOTICS, WOUND VAC, WOUND CARE (2) Urinary tract infection Status: Acute Qualifiers: Urinary tract infection type: acute cystitis Hematuria presence: without hematuria Qualified Code(s): N30.00 - Acute cystitis without hematuria (3) Protein calorie malnutrition Status: Acute
[2020-03-13] MEDS: NORCO 5/325 MG TAB PO PRN (13:50)
[2020-03-14] MEDS: MERREM VIAL 500 MG in NS 100 ML IV + SPIKE MINIBAG* 100 ML IV SCH ×3 (05:08→21:15)
[2020-03-14] MEDS: MORPHINE SULFATE INJ 2 MG INJ IVP PRN ×3 (05:09→22:00)
[2020-03-14] MEDS ORDERED: NS 250 ML IV 250 ML IV ONE (05:36)
[2020-03-14 06:42] LABS: BASOPHILS # (AUTO) 0.1 X10^3/uL (0.0-0.1); BASOPHILS % (AUTO) 0.7 % (0.2-1.0); EOSINOPHILS # (AUTO) 0.2 x10^3/uL (0.0-0.2); EOSINOPHILS % (AUTO) 1.9 % (0.9-2.9); HEMATOCRIT 26.3 % (36.0-47.0); HEMOGLOBIN 8.8 g/dL (12.0-16.0); LYMPHOCYTES # (AUTO) 3.3 X10^3/uL (1.3-2.9); LYMPHOCYTES % (AUTO) 31.4 % (21.0-51.0); MEAN CORPUSCULAR HEMOGLOBIN 30.2 pg (27.0-34.0); MEAN CORPUSCULAR HGB CONC 33.4 g/dL (33.0-35.0); MEAN CORPUSCULAR VOLUME 90.3 fL (80.0-100.0); MEAN PLATELET VOLUME 8.8 fL (7.4-11.0); MONOCYTES # (AUTO) 0.8 x10^3/uL (0.3-0.8); MONOCYTES % (AUTO) 7.5 % (0.0-13.0); NEUTROPHILS # (AUTO) 6.1 x10^3/uL (2.2-4.8); NEUTROPHILS % (AUTO) 58.5 % (42.0-75.0); PLATELET COUNT 329 X10^3/uL (150.0-450.0); RED BLOOD COUNT 2.91 X10^6/uL (3.5-5.4); RED CELL DISTRIBUTION WIDTH 16.4 % (11.6-16.5); WHITE BLOOD COUNT 10.4 X10^3/uL (3.6-10.0)
[2020-03-14 06:47] LABS: ALANINE AMINOTRANSFERASE 26 Units/L (12-78); ALBUMIN 2.3 g/dL (3.4-5.0); ALKALINE PHOSPHATASE 52 Units/L (46-116); ASPARTATE AMINO TRANSFERASE 28 Units/L (15-37); BLOOD UREA NITROGEN 13 mg/dL (7-18); CALCIUM 8.3 mg/dL (8.5-10.1); CARBON DIOXIDE 25.3 mmol/L (21-32); CHLORIDE 107 mmol/L (98-107); COR CA(FOR HYPOALB) 9.7 mg/dL (8.5-10.1); CREATININE 1.05 mg/dL (0.55-1.02); SODIUM 141 mmol/L (136-145); TOTAL PROTEIN 6.1 g/dL (6.4-8.2); eGFR NON BLACK RACES 55 (>60)
[2020-03-14] MEDS ORDERED: ZESTRIL TAB 20 MG ONE ×2 (08:52→19:28)
[2020-03-14] MEDS: ASPIRIN EC 81 MG PO SCH (09:08)
[2020-03-14] MEDS: CORDARONE TAB 200 MG PO SCH (09:08)
[2020-03-14] MEDS: PLAVIX PO SCH (09:09)
[2020-03-14] MEDS: MEGACE PO SCH ×2 (09:09→20:38)
[2020-03-14] MEDS: TOPROL XL PO SCH (09:09)
[2020-03-14] MEDS: ZESTRIL TAB 20 MG PO SCH ×2 (09:10→20:37)
[2020-03-14] MEDS: SINGULAIR TAB 10 MG PO SCH (09:10)
[2020-03-14] MEDS: PREVACID PO SCH (09:12)
[2020-03-14] MEDS ORDERED: NS 100 ML IV 100 ML IV ONE (19:30)
[2020-03-14] MEDS: VALIUM INJ IVP PRN (20:07)
--- NOTE | 2020-03-14 22:44 | PCM.PROG ---
Progress Note - Progress Note for Day of Date of Exam: 03/14/20 - Subjective Subjective: IS A PATIENT OF . SHE IS BEING TREATED FOR A STAGE 4 DECUBITUS ULCER AND A URINARY TRACT INFECTION. WOUND WAS DEBRIDED BY . WOUND GREW OUT KLEBSIELLA. SHE HAS A WOUND VAC IN PLACE. TODAY, SHE IS ALERT AND ORIENTED, LYING IN BED ON MORNING ROUNDS. SHE REPORTS WEAKNESS AND DECREASED APPETITE TODAY. ON EXAMINATION, SHE IS NOTED TO BE TACHYCARDIC. RHYTHM REGULAR. BILATERAL LUNGS ARE NOTED WITH DIMINISHED LUNG SOUNDS THROUGHOUT. ABDOMEN FLAT, SOFT, AND NON-TENDER WITH NORMAL BOWEL SOUNDS NOTED IN ALL QUADRNATS. WOUND VAC NOTED TO SACRAL WOUND. HER VITALS THIS MORNING ARE: 98.5-554-87-100-171/93. LABS WERE OBTAINED. ABNORMAL LAB VALUES INCLUDE THE FOLLOWING: WBC 10.4, RBC 2.91, HGB 8.8, HCT 26.3, CREATININE 1.05, CALCIUM 8.3, TOTAL PROTEIN 6.1, ALBUMIN 2.3. BLOOD CULTURES ARE PENDING. SHE IS CURRENTLY RECEIVING PROCAL AT 40 ML/HR, MEROPENEM 500MG IV Q8H, NORCO 5/325MG PO Q6H PRN, MORPHINE 1-2MG IV Q4H PRN, THE POTASSIUM AND MAGNESIUM PROTOCOLS, AND HOME MEDICATIONS WERE RESUMED. WE WILL CONTINUE WITH CURRENT PLAN OF CARE TODAY. OTHERWISE, WE PLAN TO FOLLOW UP WITH AM LABS AND CONTINUE TO MONITOR. - Past Medical Family Social History Past Med/Fam/Surg Hx: No changes since H&P Allergies: Allergies No Known Drug Allergies Allergy (Verified 01/23/20 18:03) - Review of Systems ROS: No change since H&P - Vital Signs and I&O's Vital Signs: Temperature 97.9 F Pulse Rate [Left Radial] 100 Pulse Rate 106 Respiratory Rate 20 Blood Pressure [Left Arm] 141/79 Blood Pressure [Right Arm] 136/79 Blood Pressure 156/80 O2 Sat by Pulse Oximetry 98 Intake and Output: Intake & Output 03/12/20 03/13/20 03/14/20 03/15/20 11:59 11:59 11:59 11:59 Intake Total 2133 / 2133 1496 / 1496 1643 / 1643 730 / 730 Output Total 1050 / 1050 2100 / 2100 2400 / 2400 800 / 800 Balance 1083 / 1083 -604 / -604 -757 / -757 -70 / -70 - Physical Exam Oriented: Normal, Person Eyes: Normal Ear: Normal Nose: Normal Throat: Dry Respiratory: Generalized, Diminished Cardiovascular: Tachycardia : Normal Auscultation: Bowel Sounds: Normal Tenderness: Normal Skin: Decreased Turgur, Wound (stage 4 sacral ulcer 8x6 cm with undermined skin posteriorly ... no necrosis or abscess formation .) Musculoskeletal: Right, Left, Leg, Back:Lumbar, Motor Deficit Mood Description: Calm Speech Pattern: Clear, Appropriate - Laboratory and Diagnostics Result Diagrams: 03/14/20 05:40 03/14/20 05:40 Labs: 03/08/20 12:25 Blood Blood Culture - Final 03/08/20 12:19 Blood Blood Culture - Final 03/10/20 14:50 Sacral Gram Stain - Final 03/10/20 14:50 Sacral Wound Culture - Final Klebsiella Pneumoniae 03/08/20 12:56 Sacral Gram Stain - Final 03/08/20 12:56 Sacral Wound Culture - Final Klebsiella Pneumoniae Laboratory WBC 10.4 X10^3/uL (3.6-10.0) H 03/14/20 05:40 RBC 2.91 X10^6/uL (3.5-5.4) L 03/14/20 05:40 Hgb 8.8 g/dL (12.0-16.0) L 03/14/20 05:40 Hct 26.3 % (36.0-47.0) L 03/14/20 05:40 MCV 90.3 fL (80.0-100.0) 03/14/20 05:40 MCH 30.2 pg (27.0-34.0) 03/14/20 05:40 MCHC 33.4 g/dL (33.0-35.0) 03/14/20 05:40 RDW 16.4 % (11.6-16.5) 03/14/20 05:40 Plt Count 329 X10^3/uL (150.0-450.0) 03/14/20 05:40 MPV 8.8 fL (7.4-11.0) 03/14/20 05:40 Neut % (Auto) 58.5 % (42.0-75.0) 03/14/20 05:40 Lymph % (Auto) 31.4 % (21.0-51.0) 03/14/20 05:40 [place] % (Auto) 7.5 % (0.0-13.0) 03/14/20 05:40 Eos % (Auto) 1.9 % (0.9-2.9) 03/14/20 05:40 Baso % (Auto) 0.7 % (0.2-1.0) 03/14/20 05:40 Neut # (Auto) 6.1 x10^3/uL (2.2-4.8) H 03/14/20 05:40 Lymph # (Auto) 3.3 X10^3/uL (1.3-2.9) H 03/14/20 05:40 [place] # (Auto) 0.8 x10^3/uL (0.3-0.8) 03/14/20 05:40 Eos # (Auto) 0.2 x10^3/uL (0.0-0.2) 03/14/20 05:40 Baso # (Auto) 0.1 X10^3/uL (0.0-0.1) 03/14/20 05:40 Absolute Nucleated RBC 0.0 /100WBC 03/14/20 05:40 PT 13.4 SECONDS (11.8-14.3) 03/14/20 10:40 INR Target Range - 03/14/20 10:40 INR 1.05 (0.8-1.3) 03/14/20 10:40 Sodium 141 mmol/L (136-145) 03/14/20 05:40 Corrected Sodium TNP 03/14/20 05:40 Potassium 4.3 mmol/L (3.5-5.1) 03/14/20 05:40 Chloride 107 mmol/L (98-107) 03/14/20 05:40 Carbon Dioxide 25.3 mmol/L (21-32) 03/14/20 05:40 BUN 13 mg/dL (7-18) 03/14/20 05:40 Creatinine 1.05 mg/dL (0.55-1.02) H 03/14/20 05:40 Est GFR (MDRD) Af Amer > 60 (>60) 03/14/20 05:40 Est GFR (MDRD) Non-Af 55 (>60) L 03/14/20 05:40 Glucose 90 mg/dL (65-99) 03/14/20 05:40 Lactic Acid 1.5 mmol/L (0.4-2.0) 03/09/20 06:00 Calcium 8.3 mg/dL (8.5-10.1) L 03/14/20 05:40 Corrected Calcium 9.7 mg/dL (8.5-10.1) 03/14/20 05:40 Phosphorus 2.6 mg/dL (2.6-4.7) 03/08/20 12:19 Magnesium 2.1 mg/dL (1.7-2.9) 03/08/20 12:19 Total Bilirubin 0.20 mg/dL (0.2-1.0) 03/14/20 05:40 AST 28 Units/L (15-37) 03/14/20 05:40 ALT 26 Units/L (12-78) 03/14/20 05:40 Alkaline Phosphatase 52 Units/L (46-116) 03/14/20 05:40 Total Protein 6.1 g/dL (6.4-8.2) L 03/14/20 05:40 Albumin 2.3 g/dL (3.4-5.0) L 03/14/20 05:40 Globulin 3.8 g/dL (2.5-4.5) 03/14/20 05:40 Albumin/Globulin Ratio 0.6 Ratio (1.1-2.1) L 03/14/20 05:40 Lipase 65 Units/L (73-393) L 03/08/20 12:19 Specimen Type Clean catch urine 03/08/20 14:42 Urine Color Pale yellow (YELLOW) 03/08/20 14:42 Urine Appearance Clear (CLEAR) 03/08/20 14:42 Urine pH 7.0 (5.0 - 8.0) 03/08/20 14:42 Ur Specific [place] 1.010 (1.000-1.030) 03/08/20 14:42 Urine Protein 2+ (NEGATIVE) 03/08/20 14:42 Urine Glucose (UA) Negative (NEGATIVE) 03/08/20 14:42 Urine Ketones Negative (NEGATIVE) 03/08/20 14:42 Urine Occult Blood Negative (NEGATIVE) 03/08/20 14:42 Urine Nitrite Negative (NEGATIVE) 03/08/20 14:42 Urine Bilirubin Negative (NEGATIVE) 03/08/20 14:42 Urine Urobilinogen Normal (NORMAL) 03/08/20 14:42 Ur Leukocyte Esterase Negative (NEGATIVE) 03/08/20 14:42 Urine RBC None seen /HPF (0-3) 03/08/20 14:42 Urine WBC None seen /HPF (0-5) 03/08/20 14:42 Ur Squamous Epith Cells Rare /HPF (NEGATIVE) 03/08/20 14:42 Amorphous Sediment Trace /HPF (NEGATIVE) 03/08/20 14:42 Urine Bacteria Negative /HPF (NEGATIVE) 03/08/20 14:42 Ur Culture Indicated? No/not indicated 03/08/20 14:42 SARS-CoV-2 (PCR) Negative (NEGATIVE) 03/08/20 14:00 Tissue Pathology To follow 03/10/20 15:05 - Plan (1) Decubitus ulcer, stage 4 with infection Status: Acute Plan: CONTINUE IV ANTIBIOTICS, WOUND VAC, WOUND CARE (2) Urinary tract infection Status: Acute Qualifiers: Urinary tract infection type: acute cystitis Hematuria presence: without hematuria Qualified Code(s): N30.00 - Acute cystitis without hematuria (3) Protein calorie malnutrition Status: Acute
[2020-03-15] MEDS ORDERED: NS 100 ML IV 100 ML IV ONE (05:20)
[2020-03-15] MEDS: MERREM VIAL 500 MG in NS 100 ML IV + SPIKE MINIBAG* 100 ML IV SCH ×2 (05:45→15:18)
[2020-03-15 06:59] LABS: BASOPHILS # (AUTO) 0.1 X10^3/uL (0.0-0.1); BASOPHILS % (AUTO) 0.6 % (0.2-1.0); EOSINOPHILS # (AUTO) 0.2 x10^3/uL (0.0-0.2); HEMATOCRIT 26.9 % (36.0-47.0); LYMPHOCYTES # (AUTO) 3.1 X10^3/uL (1.3-2.9); MEAN CORPUSCULAR HGB CONC 33.3 g/dL (33.0-35.0); MEAN CORPUSCULAR VOLUME 90.1 fL (80.0-100.0); MEAN PLATELET VOLUME 8.3 fL (7.4-11.0); MONOCYTES # (AUTO) 0.7 x10^3/uL (0.3-0.8); MONOCYTES % (AUTO) 6.6 % (0.0-13.0); NEUTROPHILS # (AUTO) 6.7 x10^3/uL (2.2-4.8); NEUTROPHILS % (AUTO) 61.8 % (42.0-75.0); PLATELET COUNT 320 X10^3/uL (150.0-450.0); RED BLOOD COUNT 2.99 X10^6/uL (3.5-5.4); RED CELL DISTRIBUTION WIDTH 16.6 % (11.6-16.5); WHITE BLOOD COUNT 10.8 X10^3/uL (3.6-10.0)
[2020-03-15 07:00] LABS: ALANINE AMINOTRANSFERASE 28 Units/L (12-78); ALBUMIN 2.3 g/dL (3.4-5.0); ALKALINE PHOSPHATASE 53 Units/L (46-116); ASPARTATE AMINO TRANSFERASE 33 Units/L (15-37); BLOOD UREA NITROGEN 13 mg/dL (7-18); CALCIUM 8.6 mg/dL (8.5-10.1); CHLORIDE 107 mmol/L (98-107); CREATININE 0.75 mg/dL (0.55-1.02); SODIUM 139 mmol/L (136-145); TOTAL PROTEIN 6.1 g/dL (6.4-8.2); eGFR NON BLACK RACES > 60 (>60)
[2020-03-15] MEDS ORDERED: ZESTRIL TAB 20 MG ONE (08:13)
[2020-03-15] MEDS: NORCO 5/325 MG TAB PO PRN ×2 (08:22→14:14)
[2020-03-15] MEDS: TOPROL XL PO SCH (08:22)
[2020-03-15] MEDS: MEGACE PO SCH (08:22)
[2020-03-15] MEDS: CORDARONE TAB 200 MG PO SCH (08:23)
[2020-03-15] MEDS: PLAVIX PO SCH (08:23)
[2020-03-15] MEDS: ZESTRIL TAB 20 MG PO SCH (08:24)
[2020-03-15] MEDS: PREVACID PO SCH (08:24)
[2020-03-15] MEDS: SINGULAIR TAB 10 MG PO SCH (08:24)
[2020-03-15] MEDS: ASPIRIN EC 81 MG PO SCH (08:24)
[2020-03-15 16:21] VITALS: BP 142/79
--- NOTE | 2020-04-02 04:47 | DR.EXTPAIN ---
HPI Time seen Time Seen by Provider: 03/08/20 12:00 PCP Primary Care Physician: jeffrey Complaint/Symptoms Chief Complaint:: [facility] STATES THEY WERE DISPATCHED TO PATIENT'S RESIDENCE FOR WEAKNESS, NOT FEELING WELL, WORSENING OF SACRAL WOUND, AND ELEVATED BLOOD PRESSURE. HOME HEALTH NURSE WAS AT PATIENT'S RESIDENCE AND STATES SHE NOTIFIED DR. MILLER AND WAS TOLD TO SEND PATIENT TO THE ED FOR EVALUATION. COVID-19 Coronavirus risk:travel/contact w/high risk person: No Has patient experienced Coronavirus symptoms: No Source History Provided: EMS Mode of arrival Mode of Arrival: EMS Timing Onset of Chief Complaint: 03/08/20 PMH PMH Past Medical History: Yes Past Medical History: Anxiety, Arthritis, CVA, Dementia, Depression, Dyslipidemia and Hypertension Past Medical History Comment: CARDIAC ARRHYTHMIA-AFIB Past Surgical History: Yes Surgical History: Hysterectomy Family History History of Family Medical Conditions: No Family Medical History: Cancer Social History Does patient currently use any type of tobacco product: No Does any household member use tobacco: No Alcohol Use: None Do you use any recreational Drugs:: No Lives With: Family Lives Where: Home Travel Risk Coronavirus risk:travel/contact w/high risk person: No Has patient experienced Coronavirus symptoms: No Infectious screening Have you traveled outside the country in the last 6 months?: No Isolation: Contact ROS Review of Systems Constitutional: Weakness Eyes: No Symptoms Reported ENTM: No Symptoms Reported Respiratoy: No Symptoms Reported Cardiovascular: No Symptoms Reported Gastrointestinal/Abdominal: No Symptoms Reported Genitourinary: No Symptoms Reported Neurological: No Symptoms Reported Musculoskeletal: No Symptoms Reported Integumentary: Wound (sacral decubitus) Hematologic/Lymphatic: No Symptoms Reported Endocrine: No Symptoms Reported Psychiatric: No Symptoms Reported PE Vital Signs Vitals: Temperature 100 F Pulse Rate 113 Respiratory Rate 17 Blood Pressure [Right Arm] 122/70 Blood Pressure 184/111 O2 Sat by Pulse Oximetry 99 General Limitations: No Limitations General Appearance: Alert and In No Apparent Distress Head Head Exam: Normal Inspection, Atraumatic and Normocephalic Eyes Eye exam: Normal Appearance and EOMI ENT ENT Exam: Normal Exam Neck Neck Exam: Normal Inspection, Full ROM and Trachea Midline Chest Chest Inspection: Normal Inspection Respiratory Respiratory Exam: Normal Lung Sounds Bilat Respiratory Exam: Bilateral: Clear to Auscultation Cardiovascular Cardiovascular Exam: Tachycardia Abdominal Exam Abdominal Exam: Normal Inspection Extremities Extremities Exam: Normal Inspection Back Back Exam: Other (sacral decubitus) Psychiatric Psychiatric Exam: Flat Affect Skin Skin Exam: Other (decubitus ulcer) Distribution: Back ROR Labs Reviewed Result Diagrams: 03/15/20 05:40 03/15/20 05:40 Laboratory: 03/08/20 12:25 Blood Blood Culture - Final 03/08/20 12:19 Blood Blood Culture - Final 03/08/20 12:56 Sacral Gram Stain - Final 03/08/20 12:56 Sacral Wound Culture - Final Klebsiella Pneumoniae WBC 12.5 X10^3/uL (3.6-10.0) H 03/08/20 12:19 RBC 3.24 X10^6/uL (3.5-5.4) L 03/08/20 12:19 Hgb 9.6 g/dL (12.0-16.0) L 03/08/20 12:19 Hct 29.7 % (36.0-47.0) L 03/08/20 12:19 MCV 91.7 fL (80.0-100.0) 03/08/20 12:19 MCH 29.6 pg (27.0-34.0) 03/08/20 12:19 MCHC 32.3 g/dL (33.0-35.0) L 03/08/20 12:19 RDW 17.4 % (11.6-16.5) H 03/08/20 12:19 Plt Count 346 X10^3/uL (150.0-450.0) 03/08/20 12:19 MPV 8.2 fL (7.4-11.0) 03/08/20 12:19 Neut % (Auto) 74.9 % (42.0-75.0) 03/08/20 12:19 Lymph % (Auto) 17.8 % (21.0-51.0) L 03/08/20 12:19 [place] % (Auto) 6.1 % (0.0-13.0) 03/08/20 12:19 Eos % (Auto) 0.5 % (0.9-2.9) L 03/08/20 12:19 Baso % (Auto) 0.7 % (0.2-1.0) 03/08/20 12:19 Neut # (Auto) 9.4 x10^3/uL (2.2-4.8) H 03/08/20 12:19 Lymph # (Auto) 2.2 X10^3/uL (1.3-2.9) 03/08/20 12:19 [place] # (Auto) 0.8 x10^3/uL (0.3-0.8) 03/08/20 12:19 Eos # (Auto) 0.1 x10^3/uL (0.0-0.2) 03/08/20 12:19 Baso # (Auto) 0.1 X10^3/uL (0.0-0.1) 03/08/20 12:19 Absolute Nucleated RBC 0.0 /100WBC 03/08/20 12:19 PT 22.9 SECONDS (11.8-14.3) 03/08/20 12:19 INR Target Range - 03/08/20 12:19 INR 2.09 (0.8-1.3) H 03/08/20 12:19 Sodium 144 mmol/L (136-145) 03/08/20 12:19 Corrected Sodium TNP 03/08/20 12:19 Potassium 3.7 mmol/L (3.5-5.1) 03/08/20 12:19 Chloride 107 mmol/L (98-107) 03/08/20 12:19 Carbon Dioxide 25.1 mmol/L (21-32) 03/08/20 12:19 BUN 15 mg/dL (7-18) 03/08/20 12:19 Creatinine 0.93 mg/dL (0.55-1.02) 03/08/20 12:19 Est GFR (MDRD) Af Amer > 60 (>60) 03/08/20 12:19 Est GFR (MDRD) Non-Af > 60 (>60) 03/08/20 12:19 Glucose 92 mg/dL (65-99) 03/08/20 12:19 Lactic Acid 1.4 mmol/L (0.4-2.0) 03/08/20 12:19 Calcium 8.9 mg/dL (8.5-10.1) 03/08/20 12:19 Corrected Calcium 9.6 mg/dL (8.5-10.1) 03/08/20 12:19 Phosphorus 2.6 mg/dL (2.6-4.7) 03/08/20 12:19 Magnesium 2.1 mg/dL (1.7-2.9) 03/08/20 12:19 Total Bilirubin 0.30 mg/dL (0.2-1.0) 03/08/20 12:19 AST 22 Units/L (15-37) 03/08/20 12:19 ALT 21 Units/L (12-78) 03/08/20 12:19 Alkaline Phosphatase 68 Units/L (46-116) 03/08/20 12:19 Total Protein 7.2 g/dL (6.4-8.2) 03/08/20 12:19 Albumin 3.1 g/dL (3.4-5.0) L 03/08/20 12:19 Globulin 4.1 g/dL (2.5-4.5) 03/08/20 12:19 Albumin/Globulin Ratio 0.8 Ratio (1.1-2.1) L 03/08/20 12:19 Lipase 65 Units/L (73-393) L 03/08/20 12:19 Specimen Type Clean catch urine 03/08/20 12:56 Urine Color Yellow (YELLOW) 03/08/20 12:56 Urine Appearance Slightly hazy (CLEAR) 03/08/20 12:56 Urine pH 6.0 (5.0 - 8.0) 03/08/20 12:56 Ur Specific [place] 1.015 (1.000-1.030) 03/08/20 12:56 Urine Protein 3+ (NEGATIVE) 03/08/20 12:56 Urine Glucose (UA) Negative (NEGATIVE) 03/08/20 12:56 Urine Ketones Negative (NEGATIVE) 03/08/20 12:56 Urine Occult Blood 1+ (NEGATIVE) 03/08/20 12:56 Urine Nitrite Negative (NEGATIVE) 03/08/20 12:56 Urine Bilirubin Negative (NEGATIVE) 03/08/20 12:56 Urine Urobilinogen Normal (NORMAL) 03/08/20 12:56 Ur Leukocyte Esterase 1+ (NEGATIVE) 03/08/20 12:56 Urine RBC 0-2 /HPF (0-3) 03/08/20 12:56 Urine WBC 3-5 /HPF (0-5) 08/17/20 12:56 Ur Squamous Epith Cells Few /HPF (NEGATIVE) 03/08/20 12:56 Urine Bacteria Negative /HPF (NEGATIVE) 03/08/20 12:56 Ur Culture Indicated? No/not indicated 03/08/20 12:56 SARS-CoV-2 (PCR) Negative (NEGATIVE) 03/08/20 14:00 Opioid Opioid Risk Tool Age (El[place] box if 16-45): No History of Preadolescent Sexual Abuse: No Total: 0 Total Score Risk Category: Low Risk Copyright: [facility] SANCHEZ predicting aberrant behaviors Diagnosis Discharge Problem: Decubitus ulcer, stage 4 with infection Urinary tract infection Qualifiers: Urinary tract infection type: acute cystitis Hematuria presence: without hematuria Qualified Code(s): N30.00 - Acute cystitis without hematuria Fever Qualifiers: Fever type: unspecified Qualified Code(s): R50.9 - Fever, unspecified Instructions Instructions: Fatigue Wound Infection, Xeig-[id number] Preventing Pressure Injuries Urinary Tract Infection, Adult Negative Pressure Wound Therapy Dressing Care Indwelling Urinary Catheter Care, Adult, [id number] Hypertension, [id number] Negative Pressure Wound Therapy Surgical Wound Debridement Weakness Fever, Adult, [id number] Forms: Excuse From Work Precautions for COVID19 Patient Portal Social Distancing
== END 2020-03-15 17:35 | disposition home health service (06) | DRG 853 ==
LOC: ER 11:51 → MED/SURG 14:39
PROVIDERS: ADMIT Internal Medicine; ATTEND Internal Medicine
DX: R94.31 Abnormal electrocardiogram [ECG] [EKG]; L89.154 Pressure ulcer of sacral region, stage 4; E78.2 Mixed hyperlipidemia; R50.81 Fever presenting with conditions classified elsewhere; R62.7 Adult failure to thrive; I48.0 Paroxysmal atrial fibrillation; F41.8 Other specified anxiety disorders; Z20.828 Contact with and (suspected) exposure to other viral communicable diseases; A41.9 Sepsis, unspecified organism; I10 Essential (primary) hypertension; B96.1 Klebsiella pneumoniae [K. pneumoniae] as the cause of diseases classified elsewhere; R26.89 Other abnormalities of gait and mobility; N30.00 Acute cystitis without hematuria

== ENCOUNTER 2020-03-21 19:44 | Inpatient (IN) ==
[2020-03-21 19:59] VITALS: BMI 21.0
--- NOTE | 2020-03-21 19:59 | DR.GENAD ---
HPI Time Seen Time Seen by Provider: 03/21/20 19:58 HPI Comment HPI Comment: PATIENT IS 75YR OLD FEMALE IN ER VIA EMS FOR GENERALIZED WEAKNESS, SACRAL DECUBITUS ULCER WITH INDWELLING WOUND VAC AND A FIB. FAMILY SAID IT IS DIFFICULT TO CARE FOR FOR HER AT HOME. SHE HAS MODERATE LOWER BACK PAIN RADIATI NG TO THE BUTTOCKS THAT IS SHARP. A FIB HAVE CONTROLLED RATE IN ER. NO FEVER. Complaint/Symptoms Chief Complaint Doctors Comments: GENERALIZED WEAKNESS, SACRAL DECUBITUS ULCER WITH INDWELLING WOUND VAC AND A FIB. COVID-19 Coronavirus risk:travel/contact w/high risk person: No Has patient experienced Coronavirus symptoms: No Nurses notes reviewed Nurses Notes Review: Yes Source History Provided: Patient and EMS Mode of Arrival Mode of Arrival: EMS Timing Came on: Suddenly Duration Duration: Constant Duration: Days Severity Severity: Moderate Modifying Factors Worsens:: SITTING INCREASE SACRAL PAIN. Improves:: REST HELP PAIN. Associated Signs and Symptoms Associated Signs and Symptoms: GENERALIZED WEAKNESS. Other History Other History: DENIES HISTORY OF DM. PMH PMH Past Medical History: Anxiety, Arthritis, CVA, Dementia, Depression, Dyslipidemia and Hypertension Past Surgical History: Yes Surgical History: Hysterectomy Family History Family Medical History: Cancer Social History Do you use any recreational Drugs:: No ROS Review of Systems Constitutional: See HPI, Weakness and Fatigue; negative Fever Eyes: No Symptoms Reported and See HPI ENTM: No Symptoms Reported and See HPI; negative Nose Discharge and Nose Congestion Respiratoy: No Symptoms Reported and See HPI; negative Moist Cough, Short of Breath and Wheezing Cardiovascular: No Symptoms Reported and See HPI; negative Chest Pain Gastrointestinal/Abdominal: No Symptoms Reported and See HPI; negative Abdominal Pain, Diarrhea and Vomiting Genitourinary: No Symptoms Reported and See HPI; negative Dysuria and Hematuria Neurological: No Symptoms Reported and See HPI; negative Headache, Weakness and Dizziness Musculoskeletal: See HPI and Back Pain (LOWER BACK PAIN/SACRAL DECUBITUS WITH INDWELLING WOUND VAC.) Integumentary: See HPI and Wound (DECUBITUS ULCER SACRAL AREA.) Hematologic/Lymphatic: No Symptoms Reported and See HPI; negative Easy Bruising and Swollen Glands Endocrine: No Symptoms Reported and See HPI; negative Increased Thirst and Increased Urine Psychiatric: No Symptoms Reported and See HPI All Other Systems: Reviewed and Negative Unable to Obtain Due To: Dementia PE Vital Signs Vitals: Temperature 98.2 F Pulse Rate [Left Brachial] 103 Pulse Rate 99 Respiratory Rate 14 Blood Pressure [Left Arm] 166/77 Blood Pressure [Right Arm] 142/79 Blood Pressure 134/89 O2 Sat by Pulse Oximetry 98 General Limitations: No Limitations General Appearance: Alert and In No Apparent Distress Head Head Exam: Normal Inspection and Atraumatic Eyes Eye exam: Normal Appearance and PERRL; negative Scleral Icterus and Conjunctival Injection ENT ENT Exam: Normal Exam, Normal Oropharynx, Normal External Ear Exam and TM's Normal Bilaterally External Ear Exam: Normal External Inspection; negative Mastoid Tenderness TM/Canal Exam: Bilateral: Normal Nose Exam: Normal Nose Exam Mouth Exam: Normal Inspection Throat Exam: Normal Inspection; negative Tonsillar Erythema, Tonsillomegaly and Tonsillar Exudate Neck Neck Exam: Normal Inspection and Trachea Midline; negative Tenderness and Lymphadenopathy Chest Chest Inspection: Normal Inspection and Symmetric Chest Wall Rise; negative Tenderness Respiratory Respiratory Exam: Normal Lung Sounds Bilat; negative Accessory Muscle Use, Chest Wall Tenderness and Respiratory Distress Respiratory Exam: Bilateral: Rhonchi and Lower: Rhonchi Cardiovascular Cardiovascular Exam: Irregular Rhythm and Normal Heart Sounds; negative Systolic Murmur and Diastolic Murmur Abdominal Exam Abdominal Exam: Normal Inspection, Normal Bowel Sounds and Soft; negative Tenderness Extremities Extremities Exam: Normal Inspection, Normal Capillary Refill and Edema; negative Tenderness and Calf Tenderness Back Back Exam: Normal Inspection and Tenderness (LOWER BACK TENDERNESS/SACRAL DECUBITUS ULCER WITH INDWELLING WOUND VAC.); negative (R) CVA Tenderness and (L) CVA Tenderness Neurologic Neurological Exam: Alert and Oriented X3; negative Motor Sensory Deficit Psychiatric Psychiatric Exam: Normal Affect and Normal Mood Skin Skin Exam: Erythema MDM Additional Information Additional Information Obtained From: Old Records Differential Diagnosis Differential Diagnosis: GENERALIZED WEAKNESS, A FIB, UTI, DECUBITUS ULCER WITH INDWELLING WOUND VAC COURSE Treatment Treatment: SEE ORDERS. ROCEPHIN 1 GM IVPB, NS IN, METOPROLOL 50 MG PO IN ER. Consultation Consultation Comments: DISCUSSED PATIENT WITH DR MILLER, HE WILL ADMIT PATIENT. Education/Counseling Education/Counseling: Patient Educated On: Diagnosis and Needs for Follow Up ROR Labs Reviewed Laboratory Results Reviewed?: Yes Result Diagrams: 03/25/20 05:25 03/25/20 05:25 Laboratory: 03/21/20 21:24 Urine,Catheterized Urine Culture - Final WBC 10.6 X10^3/uL (3.6-10.0) H 03/21/20 20:58 RBC 3.52 X10^6/uL (3.5-5.4) 03/21/20 20:58 Hgb 10.2 g/dL (12.0-16.0) L 03/21/20 20:58 Hct 31.6 % (36.0-47.0) L 03/21/20 20:58 MCV 89.9 fL (80.0-100.0) 03/21/20 20:58 MCH 29.0 pg (27.0-34.0) 03/21/20 20:58 MCHC 32.3 g/dL (33.0-35.0) L 03/21/20 20:58 RDW 16.3 % (11.6-16.5) 03/21/20 20:58 Plt Count 409 X10^3/uL (150.0-450.0) 03/21/20 20:58 MPV 8.4 fL (7.4-11.0) 03/21/20 20:58 Neut % (Auto) 74.9 % (42.0-75.0) 03/21/20 20:58 Lymph % (Auto) 18.3 % (21.0-51.0) L 03/21/20 20:58 [place] % (Auto) 4.9 % (0.0-13.0) 03/21/20 20:58 Eos % (Auto) 1.1 % (0.9-2.9) 03/21/20 20:58 Baso % (Auto) 0.8 % (0.2-1.0) 03/21/20 20:58 Neut # (Auto) 7.9 x10^3/uL (2.2-4.8) H 03/21/20 20:58 Lymph # (Auto) 1.9 X10^3/uL (1.3-2.9) 03/21/20 20:58 [place] # (Auto) 0.5 x10^3/uL (0.3-0.8) 03/21/20 20:58 Eos # (Auto) 0.1 x10^3/uL (0.0-0.2) 03/21/20 20:58 Baso # (Auto) 0.1 X10^3/uL (0.0-0.1) 03/21/20 20:58 Absolute Nucleated RBC 0.0 /100WBC 03/21/20 20:58 Sodium 145 mmol/L (136-145) 03/21/20 20:58 Corrected Sodium 146 mmol/L (136-145) H 03/21/20 20:58 Potassium 3.8 mmol/L (3.5-5.1) 03/21/20 20:58 Chloride 109 mmol/L (98-107) H 03/21/20 20:58 Carbon Dioxide 26.3 mmol/L (21-32) 03/21/20 20:58 BUN 48 mg/dL (7-18) H 03/21/20 20:58 Creatinine 2.04 mg/dL (0.55-1.02) H 03/21/20 20:58 Est GFR (MDRD) Af Amer 31 (>60) L 03/21/20 20:58 Est GFR (MDRD) Non-Af 25 (>60) L 03/21/20 20:58 Glucose 140 mg/dL (65-99) H 03/21/20 20:58 Calcium 9.2 mg/dL (8.5-10.1) 03/21/20 20:58 Corrected Calcium 10.1 mg/dL (8.5-10.1) 03/21/20 20:58 Total Bilirubin 0.30 mg/dL (0.2-1.0) 03/21/20 20:58 AST 22 Units/L (15-37) 03/21/20 20:58 ALT 21 Units/L (12-78) 03/21/20 20:58 Alkaline Phosphatase 59 Units/L (46-116) 03/21/20 20:58 Creatine Kinase 105 Units/L (26-192) 03/21/20 20:58 CK-MB (CK-2) < 1.0 ng/mL (0-4.0) 03/21/20 20:58 CK/CKMB % Calc 1.0 % (<4) 03/21/20 20:58 Troponin I < 0.02 ng/mL (0-1.5) 03/21/20 20:58 Total Protein 7.0 g/dL (6.4-8.2) 03/21/20 20:58 Albumin 2.9 g/dL (3.4-5.0) L 03/21/20 20:58 Globulin 4.1 g/dL (2.5-4.5) 03/21/20 20:58 Albumin/Globulin Ratio 0.7 Ratio (1.1-2.1) L 03/21/20 20:58 Specimen Type Catherized urine 03/21/20 21:24 Urine Color Yellow (YELLOW) 03/21/20 21:24 Urine Appearance Hazy (CLEAR) 03/21/20 21:24 Urine pH 5.0 (5.0 - 8.0) 03/21/20 21:24 Ur Specific [place] 1.020 (1.000-1.030) 03/21/20 21:24 Urine Protein 2+ (NEGATIVE) 03/21/20 21:24 Urine Glucose (UA) Negative (NEGATIVE) 03/21/20 21:24 Urine Ketones Negative (NEGATIVE) 03/21/20 21:24 Urine Occult Blood 4+ (NEGATIVE) 03/21/20 21:24 Urine Nitrite Negative (NEGATIVE) 03/21/20 21:24 Urine Bilirubin Negative (NEGATIVE) 03/21/20 21:24 Urine Urobilinogen Normal (NORMAL) 03/21/20 21:24 Ur Leukocyte Esterase 3+ (NEGATIVE) 03/21/20 21:24 Urine RBC 10-20 /HPF (0-3) A 03/21/20 21:24 Urine WBC Tntc /HPF (0-5) A 03/21/20 21:24 Ur Squamous Epith Cells Rare /HPF (NEGATIVE) 03/21/20 21:24 Ur Transition Epith Cell Rare /HPF (NEGATIVE) 03/21/20 21:24 Urine Bacteria Trace /HPF (NEGATIVE) 03/21/20 21:24 Hyaline Casts Many /LPF (NEGATIVE) 03/21/20 21:24 Urine Mucus Moderate /HPF (NEGATIVE) 03/21/20 21:24 Urine Yeast Few /HPF (NEGATIVE) 03/21/20 21:24 Ur Culture Indicated? Yes/culture set up 03/21/20 21:24 XRAY XRAY Interpreted by: Radiologist (REPORT NOTED AND DISCUSSED WITH PATIENT.) and Self EKG Rate: 94 Dola: LAD Rhythm: Afib Block: None Hypertrophy: None ST: Old, Ant, Infarct and Nonsp (PROLONG QT.) Opioid Opioid Risk Tool Age (Elmer box if 16-45): No History of Preadolescent Sexual Abuse: No Total: 0 Total Score Risk Category: Low Risk Copyright: Rogelio SANCHEZ predicting aberrant behaviors Diagnosis Discharge Problem: Encounter for management of wound VAC, Generalized weakness UTI (urinary tract infection) Qualifiers: Urinary tract infection type: site unspecified Hematuria presence: with hematuria Qualified Code(s): N39.0 - Urinary tract infection, site not specified Decubitus ulcer of sacral area Qualifiers: Pressure injury stage: pressure injury of deep tissue Qualified Code(s): L89.156 - Pressure-induced deep tissue damage of sacral region Atrial fibrillation Qualifiers: Atrial fibrillation type: persistent (not longstanding) Qualified Code(s): I48.19 - Other persistent atrial fibrillation
[2020-03-21 21:12] LABS: BASOPHILS # (AUTO) 0.1 X10^3/uL (0.0-0.1); BASOPHILS % (AUTO) 0.8 % (0.2-1.0); EOSINOPHILS # (AUTO) 0.1 x10^3/uL (0.0-0.2); EOSINOPHILS % (AUTO) 1.1 % (0.9-2.9); HEMATOCRIT 31.6 % (36.0-47.0); HEMOGLOBIN 10.2 g/dL (12.0-16.0); LYMPHOCYTES # (AUTO) 1.9 X10^3/uL (1.3-2.9); LYMPHOCYTES % (AUTO) 18.3 % (21.0-51.0); MEAN CORPUSCULAR HGB CONC 32.3 g/dL (33.0-35.0); MEAN CORPUSCULAR VOLUME 89.9 fL (80.0-100.0); MEAN PLATELET VOLUME 8.4 fL (7.4-11.0); MONOCYTES # (AUTO) 0.5 x10^3/uL (0.3-0.8); MONOCYTES % (AUTO) 4.9 % (0.0-13.0); NEUTROPHILS # (AUTO) 7.9 x10^3/uL (2.2-4.8); NEUTROPHILS % (AUTO) 74.9 % (42.0-75.0); PLATELET COUNT 409 X10^3/uL (150.0-450.0); RED BLOOD COUNT 3.52 X10^6/uL (3.5-5.4); RED CELL DISTRIBUTION WIDTH 16.3 % (11.6-16.5); WHITE BLOOD COUNT 10.6 X10^3/uL (3.6-10.0)
[2020-03-21 21:28] LABS: BLOOD UREA NITROGEN 48 mg/dL (7-18); CALCIUM 9.2 mg/dL (8.5-10.1); CARBON DIOXIDE 26.3 mmol/L (21-32); CHLORIDE 109 mmol/L (98-107); COR NA(FOR HYPERGLY) 146 mmol/L (136-145); CREATININE 2.04 mg/dL (0.55-1.02); SODIUM 145 mmol/L (136-145); TROPONIN I < 0.02 ng/mL (0-1.5); eGFR NON BLACK RACES 25 (>60)
[2020-03-21 21:31] LABS: BILIRUBIN,URINE NEGATIVE (NEGATIVE); BLOOD/HEMOGLOBIN,URINE 4+ (NEGATIVE); GLUCOSE, URINE NEGATIVE (NEGATIVE); KETONES,URINE NEGATIVE (NEGATIVE); LEUKOCYTE ESTERASE ,URINE 3+ (NEGATIVE); NITRITES,URINE NEGATIVE (NEGATIVE); PROTEIN,URINE 2+ (NEGATIVE); UROBILINOGEN,URINE NORMAL (NORMAL)
[2020-03-21 21:32] LABS: ALANINE AMINOTRANSFERASE 21 Units/L (12-78); ALBUMIN 2.9 g/dL (3.4-5.0); ALKALINE PHOSPHATASE 59 Units/L (46-116); ASPARTATE AMINO TRANSFERASE 22 Units/L (15-37); COR CA(FOR HYPOALB) 10.1 mg/dL (8.5-10.1); CREATINE KINASE 105 Units/L (26-192); CREATINE KINASE MB < 1.0 ng/mL (0-4.0)
[2020-03-21 21:43] LABS: APPEARANCE,URINE HAZY (CLEAR); COLOR,URINE YELLOW (YELLOW)
[2020-03-21 21:44] LABS: BACTERIA,URINE TRACE /HPF (NEGATIVE); HYALINE CASTS, URINE MANY /LPF (NEGATIVE); MUCUS,URINE MODERATE /HPF (NEGATIVE); SQUAMOUS EPITHELIAL CELL,UR RARE /HPF (NEGATIVE); TRANSITIONAL EPI CELLS,URINE RARE /HPF (NEGATIVE); YEAST,URINE FEW /HPF (NEGATIVE)
--- NOTE | 2020-03-21 21:44 | RAD ---
HISTORY:Shortness of breathStudy: Single view chestComparison:03/08/2020Findings:No infiltrate, effusion, or pneumothorax identified .Cardiac and mediastinal contours are within normal limits .The soft tissues are intact .IMPRESSION:1. No acute cardiopulmonary abnormality.Electronically signed by: YURI ALVES (Mar 21, 2020 21:43:23)
[2020-03-21] MEDS ORDERED: ROCEPHIN VIAL 1 GRAM 1 G in NS 100 ML IV + SPIKE MINIBAG* 100 ML IV ONE (21:58)
[2020-03-21] MEDS ORDERED: ROCEPHIN VIAL 1 GRAM ONE (22:04)
[2020-03-21] MEDS ORDERED: NS 500 ML IV 500 ML IV ONE ×2 (22:05→22:06)
[2020-03-21] MEDS ORDERED: NS 100 ML IV + SPIKE MINIBAG* 100 ML IV ONE (22:06)
[2020-03-22] MEDS ORDERED: LOPRESSOR TAB 50 MG ONE (03:02)
[2020-03-22] MEDS ORDERED: LOPRESSOR TAB 50 MG PO ONE (03:07)
[2020-03-22] MEDS ORDERED: CATAPRES TAB 0.1 MG PO PRN (08:26)
[2020-03-22] MEDS ORDERED: APRESOLINE INJ 20 MG VIAL IVP PRN (08:29)
[2020-03-22] MEDS ORDERED: ROCEPHIN VIAL 1 GRAM ONE (08:33)
[2020-03-22] MEDS ORDERED: CATAPRES TAB 0.1 MG ONE (08:33)
[2020-03-22] MEDS ORDERED: NS 100 ML IV 100 ML IV ONE ×2 (08:33→08:35)
[2020-03-22] MEDS ORDERED: CARDIZEM INJ 50 MG VIAL ONE (08:36)
[2020-03-22] MEDS ORDERED: CARDIZEM INJ 125 MG VIAL ONE (08:36)
[2020-03-22] MEDS: ROCEPHIN VIAL 1 GRAM 1 G in NS 100 ML IV + SPIKE MINIBAG* 100 ML IV SCH ×2 (08:59→21:52)
[2020-03-22] MEDS ORDERED: CARDIZEM INJ 50 MG VIAL IVP ONE (09:00)
[2020-03-22] MEDS: CARDIZEM INJ 125 MG VIAL 125 MG in NS 100 ML IV 100 ML IV PRN ×3 (09:01→15:34)
[2020-03-22] MEDS ORDERED: NS 1000 ML 1,000 ML ONE (10:39)
[2020-03-22] MEDS: NS 1000 ML 1,000 ML IV SCH ×2 (12:27→21:14)
--- NOTE | 2020-03-22 13:14 | DR.H&P ---
H&P - History & Physical for Day of: H&P Date: 03/22/20 - Chief Complaint Chief Complaint: WEAKNESS, DECUBITUS, UTI - History of Present Illness History of Present Illness: PT IS 75 WF ER ADMISSION WITH PT'S FAMILY CO FEVER, AMS AND INFECTED BED SORE. PT HAS PMH OF CVA WITH VASCULAR DEMENTIA, HTN, OA, ANEMIA. PT HAS RAPID COVID IN ER. PT ADMITTED FOR TREATMENT AND EVALUATION OF SEPSIS, - Past Medical History Past Medical History: Hypertension, Dyslipidemia, Dementia, Depression, Anxiety, CVA, Arthritis Additional Medical History: AFIB - Past Surgical History Surgical History: Hysterectomy - Family History Family Medical History: Cancer - Social History Type of Tobacco Use: None Does any household member use tobacco: No Alcohol Use: None Drug Use: None Prescription drug monitoring program results: PDMP reviewed and no concerns identified - Medications Home Medications: No Known Drug Allergies Allergy (Verified 01/23/20 18:03) CONTINUE taking the following medications atorvastatin 20 mg PO HS 03/22/20 [History] donepezil 10 mg PO DAILY 03/22/20 [History] rivaroxaban [Xarelto] 20 mg PO DAILY 03/22/20 [History] - Review of Systems Constitutional: Weakness, Malaise Respiratory: Cough Cardiovascular: Palpitations Gastrointestinal: Nausea Genitourinary: No Symptoms Reported Musculoskeletal: Back Pain, Leg Pain Skin: Wound Neurological: Weakness - Physical Exam Vital Signs: Temperature 98.5 F Pulse Rate [Left Brachial] 109 Pulse Rate 87 Respiratory Rate 21 Blood Pressure [Left Arm] 157/86 Blood Pressure [Right Arm] 142/79 Blood Pressure 142/92 O2 Sat by Pulse Oximetry 98 Oriented: Normal Eyes: Normal Ear: Normal Nose: Normal Respiratory: RLL Diminished, LLL Diminished Cardiovascular: Irregular : Normal Auscultation: Bowel Sounds: Normal Palpation: Normal Tenderness: Normal Skin: Decreased Turgur, Wound (STAGE IV SACRAL DECUBITUS) Musculoskeletal: Back:Lumbar, Motor Deficit Psychiatric: Anxiety Affect: Anxious - Assessment/Plan (1) Decubitus ulcer, stage 4 with infection Status: Acute Plan: ADMIT, IV ATBX. SURGICAL CONSULT. SKILLED NURSING PLACEMENT, IV HYDRATION. STRICT I &OS. VERIFY HOME MEDICATION, CARDIAC MONITORING (2) Protein calorie malnutrition Status: Acute (3) Underweight due to inadequate caloric intake Status: Acute (4) Urinary tract infection Qualifiers: Urinary tract infection type: acute cystitis Hematuria presence: without hematuria Qualified Code(s): N30.00 - Acute cystitis without hematuria Status: Acute - Allergies Allergies/Adverse Reactions: Allergies Allergy/AdvReac Type Severity Reaction Status Date / Time No Known Drug Allergies Allergy Verified 01/23/20 18:03
[2020-03-22 14:25] LABS: CKMB % 1.4 % (<4); CREATINE KINASE 73 Units/L (26-192); CREATINE KINASE MB < 1.0 ng/mL (0-4.0); TROPONIN I < 0.02 ng/mL (0-1.5)
[2020-03-22 20:30] LABS: CKMB % 1.6 % (<4); CREATINE KINASE 62 Units/L (26-192); CREATINE KINASE MB < 1.0 ng/mL (0-4.0); TROPONIN I < 0.02 ng/mL (0-1.5)
[2020-03-23 01:54] LABS: CKMB % 1.5 % (<4); CREATINE KINASE 66 Units/L (26-192); CREATINE KINASE MB < 1.0 ng/mL (0-4.0); TROPONIN I < 0.02 ng/mL (0-1.5)
[2020-03-23 07:04] LABS: ALANINE AMINOTRANSFERASE 16 Units/L (12-78); ALBUMIN 2.7 g/dL (3.4-5.0); ALKALINE PHOSPHATASE 55 Units/L (46-116); ASPARTATE AMINO TRANSFERASE 14 Units/L (15-37); BLOOD UREA NITROGEN 23 mg/dL (7-18); CALCIUM 8.8 mg/dL (8.5-10.1); CHLORIDE 108 mmol/L (98-107); COR CA(FOR HYPOALB) 9.8 mg/dL (8.5-10.1); CREATININE 0.84 mg/dL (0.55-1.02); SODIUM 142 mmol/L (136-145); TOTAL PROTEIN 6.8 g/dL (6.4-8.2); eGFR NON BLACK RACES > 60 (>60)
[2020-03-23 07:20] LABS: BASOPHILS # (AUTO) 0.1 X10^3/uL (0.0-0.1); BASOPHILS % (AUTO) 0.6 % (0.2-1.0); EOSINOPHILS # (AUTO) 0.1 x10^3/uL (0.0-0.2); EOSINOPHILS % (AUTO) 0.6 % (0.9-2.9); HEMATOCRIT 28.3 % (36.0-47.0); HEMOGLOBIN 9.3 g/dL (12.0-16.0); LYMPHOCYTES # (AUTO) 2.3 X10^3/uL (1.3-2.9); LYMPHOCYTES % (AUTO) 19.3 % (21.0-51.0); MEAN CORPUSCULAR HEMOGLOBIN 29.1 pg (27.0-34.0); MEAN CORPUSCULAR HGB CONC 32.7 g/dL (33.0-35.0); MEAN PLATELET VOLUME 8.9 fL (7.4-11.0); MONOCYTES # (AUTO) 0.7 x10^3/uL (0.3-0.8); MONOCYTES % (AUTO) 5.9 % (0.0-13.0); NEUTROPHILS # (AUTO) 8.8 x10^3/uL (2.2-4.8); NEUTROPHILS % (AUTO) 73.6 % (42.0-75.0); PLATELET COUNT 373 X10^3/uL (150.0-450.0); RED BLOOD COUNT 3.18 X10^6/uL (3.5-5.4); RED CELL DISTRIBUTION WIDTH 16.1 % (11.6-16.5)
[2020-03-23] MEDS ORDERED: K-RIDER 10 MEQ/NS 100 ML 10 MEQ/100 ML BAG IV PRN (07:26)
[2020-03-23] MEDS ORDERED: POTASSIUM CHL 40 MEQ/NS 0.45% 500 ML IV PRN (07:26)
[2020-03-23] MEDS ORDERED: KLOR-CON PO PRN (07:26)
[2020-03-23] MEDS ORDERED: K-DUR TAB 20 MEQ PO PRN (07:26)
[2020-03-23] MEDS ORDERED: MICRO K EXTEN CAP 10 MEQ PO PRN (07:26)
[2020-03-23] MEDS ORDERED: POTASSIUM CHL 60 MEQ/NS 0.45% 500 ML IV PRN (07:26)
[2020-03-23] MEDS ORDERED: POTASSIUM CHLORIDE LIQ 20 MEQ UDC PO PRN (07:26)
[2020-03-23] MEDS: CARDIZEM INJ 125 MG VIAL 125 MG in NS 100 ML IV 100 ML IV PRN (08:52)
[2020-03-23] MEDS ORDERED: ROCEPHIN VIAL 1 GRAM 1 G in NS 100 ML IV + SPIKE MINIBAG* 100 ML IV SCH (09:00)
[2020-03-23] MEDS ORDERED: NORCO 5/325 MG TAB PO PRN (10:48)
[2020-03-23] MEDS ORDERED: TOPROL XL PO ONE (11:39)
[2020-03-23] MEDS: TOPROL XL PO SCH (11:48)
[2020-03-23] MEDS: NS 1000 ML 1,000 ML IV SCH (11:48)
[2020-03-23] MEDS: CORDARONE TAB 200 MG PO SCH (14:42)
[2020-03-23] MEDS: XARELTO PO SCH (14:42)
[2020-03-23] MEDS: NORCO 5/325 MG TAB PO PRN (19:15)
[2020-03-23] MEDS: ROCEPHIN VIAL 1 GRAM 1 G in NS 100 ML IV + SPIKE MINIBAG* 100 ML IV SCH (22:00)
[2020-03-24 06:14] LABS: BASOPHILS # (AUTO) 0.1 X10^3/uL (0.0-0.1); BASOPHILS % (AUTO) 0.7 % (0.2-1.0); EOSINOPHILS # (AUTO) 0.2 x10^3/uL (0.0-0.2); EOSINOPHILS % (AUTO) 1.3 % (0.9-2.9); HEMATOCRIT 27.4 % (36.0-47.0); HEMOGLOBIN 8.8 g/dL (12.0-16.0); LYMPHOCYTES % (AUTO) 23.2 % (21.0-51.0); MEAN CORPUSCULAR HEMOGLOBIN 28.8 pg (27.0-34.0); MEAN CORPUSCULAR HGB CONC 32.3 g/dL (33.0-35.0); MEAN CORPUSCULAR VOLUME 89.4 fL (80.0-100.0); MONOCYTES # (AUTO) 0.9 x10^3/uL (0.3-0.8); MONOCYTES % (AUTO) 7.1 % (0.0-13.0); NEUTROPHILS # (AUTO) 8.9 x10^3/uL (2.2-4.8); NEUTROPHILS % (AUTO) 67.7 % (42.0-75.0); PLATELET COUNT 318 X10^3/uL (150.0-450.0); RED BLOOD COUNT 3.07 X10^6/uL (3.5-5.4); WHITE BLOOD COUNT 13.1 X10^3/uL (3.6-10.0)
[2020-03-24 06:29] LABS: ALANINE AMINOTRANSFERASE 32 Units/L (12-78); ALBUMIN 2.5 g/dL (3.4-5.0); ALKALINE PHOSPHATASE 54 Units/L (46-116); ASPARTATE AMINO TRANSFERASE 36 Units/L (15-37); BLOOD UREA NITROGEN 16 mg/dL (7-18); CALCIUM 8.3 mg/dL (8.5-10.1); CARBON DIOXIDE 22.6 mmol/L (21-32); CHLORIDE 109 mmol/L (98-107); COR CA(FOR HYPOALB) 9.5 mg/dL (8.5-10.1); CREATININE 0.84 mg/dL (0.55-1.02); SODIUM 141 mmol/L (136-145); TOTAL PROTEIN 6.3 g/dL (6.4-8.2); eGFR NON BLACK RACES > 60 (>60)
[2020-03-24] MEDS ORDERED: TOPROL XL PO ONE (08:50)
[2020-03-24] MEDS: XARELTO PO SCH (09:50)
[2020-03-24] MEDS: TOPROL XL PO SCH (09:50)
[2020-03-24] MEDS: CORDARONE TAB 200 MG PO SCH (09:50)
[2020-03-24] MEDS: XANAX PO PRN ×2 (14:05→21:41)
[2020-03-24] MEDS: NORCO 5/325 MG TAB PO PRN ×2 (14:05→21:40)
[2020-03-24] MEDS: NS 1000 ML 1,000 ML IV SCH ×2 (14:10)
[2020-03-24] MEDS: MERREM VIAL 500 MG in NS 50 ML IV + SPIKE MINIBAG* 50 ML IV SCH ×2 (21:39→21:40)
[2020-03-25] MEDS: NS 1000 ML 1,000 ML IV SCH (03:25)
[2020-03-25] MEDS: MERREM VIAL 500 MG in NS 50 ML IV + SPIKE MINIBAG* 50 ML IV SCH (06:11)
[2020-03-25 06:35] LABS: BASOPHILS # (AUTO) 0.1 X10^3/uL (0.0-0.1); BASOPHILS % (AUTO) 0.7 % (0.2-1.0); EOSINOPHILS # (AUTO) 0.2 x10^3/uL (0.0-0.2); EOSINOPHILS % (AUTO) 2.1 % (0.9-2.9); HEMATOCRIT 27.1 % (36.0-47.0); HEMOGLOBIN 8.8 g/dL (12.0-16.0); LYMPHOCYTES # (AUTO) 2.8 X10^3/uL (1.3-2.9); LYMPHOCYTES % (AUTO) 30.5 % (21.0-51.0); MEAN CORPUSCULAR HEMOGLOBIN 29.1 pg (27.0-34.0); MEAN CORPUSCULAR HGB CONC 32.3 g/dL (33.0-35.0); MEAN CORPUSCULAR VOLUME 90.1 fL (80.0-100.0); MEAN PLATELET VOLUME 9.1 fL (7.4-11.0); MONOCYTES # (AUTO) 0.5 x10^3/uL (0.3-0.8); MONOCYTES % (AUTO) 5.9 % (0.0-13.0); NEUTROPHILS # (AUTO) 5.6 x10^3/uL (2.2-4.8); NEUTROPHILS % (AUTO) 60.8 % (42.0-75.0); PLATELET COUNT 278 X10^3/uL (150.0-450.0); RED BLOOD COUNT 3.01 X10^6/uL (3.5-5.4); RED CELL DISTRIBUTION WIDTH 15.9 % (11.6-16.5); WHITE BLOOD COUNT 9.3 X10^3/uL (3.6-10.0)
[2020-03-25 06:48] LABS: ALANINE AMINOTRANSFERASE 45 Units/L (12-78); ALBUMIN 2.4 g/dL (3.4-5.0); ALKALINE PHOSPHATASE 55 Units/L (46-116); ASPARTATE AMINO TRANSFERASE 46 Units/L (15-37); BLOOD UREA NITROGEN 13 mg/dL (7-18); CALCIUM 8.2 mg/dL (8.5-10.1); CARBON DIOXIDE 21.3 mmol/L (21-32); CHLORIDE 108 mmol/L (98-107); COR CA(FOR HYPOALB) 9.5 mg/dL (8.5-10.1); CREATININE 0.68 mg/dL (0.55-1.02); SODIUM 140 mmol/L (136-145); TOTAL PROTEIN 6.3 g/dL (6.4-8.2); eGFR NON BLACK RACES > 60 (>60)
--- NOTE | 2020-03-25 07:02 | CT ---
HISTORYAFIB DECUBITUS ULCER SOB UTI POSSIBLE OSTEOSTUDYPELVIS W/O CONCOMPARISONNoneTECHNIQUECT bony pelvis without contrast with sagittal and coronal reformats.Dose reduction techniques including Automated Exposure Control (AEC) and adjustment of mA and kV were utilized.FINDINGSThere is a sacral decubitus ulcer at the right aspect of the sacrum. See image 52 axial soft tissue. There is osteomyelitis involving the posterior S 6 segment of the sacrum (image 55 sagittal). Osteomyelitis involves at least the C1 segment of the coccyx. Camejo catheter in situ. The rectal wall is thickened at 7-8 mm on image 54 axial. There is significant fat stranding in the presacral space. Mild body wall edema. Moderate bilateral SI joint degenerative change. Moderate to severe facet arthropathy at L5-S1.IMPRESSIONSacral decubitus ulcer at the right aspect of the sacrum. There is osteomyelitis involving at least the S 6 and C1 segments. MRI could be performed for further evaluation. There is significant fat stranding in the presacral space with thickening of the rectal wall. This could be due to proctitis or could be reactive from infection of the sacrum and coccyx.Electronically signed by: Silvestre Parks (Mar 25, 2020 07:01:58)
--- NOTE | 2020-03-25 08:06 | RAD ---
HISTORYAtrial fibrillation, shortness of breathSTUDYChest AP [id number]/30/2020FINDINGSThe heart is within normal limits in size. The azael are normal. The lungs are mildly hyperinflated but free of acute infiltrates. No pleural effusions are identified. Bony thorax is unremarkable.IMPRESSIONLungs hyperinflated but clearElectronically signed by: SILKE KANG (Mar 25, 2020 08:06:24)
[2020-03-25] MEDS ORDERED: TOPROL XL PO ONE (09:42)
[2020-03-25] MEDS: TOPROL XL PO SCH (09:44)
[2020-03-25] MEDS: XARELTO PO SCH (09:46)
[2020-03-25] MEDS: CORDARONE TAB 200 MG PO SCH (09:51)
--- NOTE | 2020-03-25 15:13 | RAD ---
HISTORYPICC LINE PLACEMENTSTUDYCHEST, 1 [id number]/02/2020FINDINGSThe heart is unchanged. The pulmonary vessels are normal. There is a PICC line in place on the right with the tip in the distal superior vena cava. No consolidation or effusion is seen. The bones are intact.IMPRESSIONStatus post right PICC line placement in good position otherwise, stable with no acute abnormality seen.Electronically signed by: TONI VILLASEÑOR (Mar 25, 2020 15:12:58)
--- NOTE | 2020-03-25 15:20 | DR.UPDATE ---
H&P Update History and Physical Update: History and Physical reviewed and patient examined. Changes noted: NO Yes with the following:will place picc as ordered by Dr Farr. H&P Reviewed: Yes Patient was examined?: Yes Procedures (ALL) - Central Line Placement PCM.CLCO: written consent Time out performed: Yes Patient placed pm monitor/pulse ox: Yes MD prep: mask, gown, gloves Centrial line prep: chlorhexidine scrub, sterile drapes applied Local anesthsia used: lidocane 1% Ultrasound used for placement: Yes (right basilic and brachial id'd. right basilic initially cannulated,) Central line lumen ininserted: double (5.5fr arrow. trimmed to 38cm. 0cm exposed) Post procedure: good blood return, all ports aspirated, flushed,capped, sterile dressing applied Post procedure xray: tip oc catheter in good position, no pneumothorax seen Patient tolerated procedure: Yes Complications: none
[2020-03-25 16:41] VITALS: BP 156/92
--- NOTE | 2020-04-15 09:36 | DR.GENAD ---
HPI Time Seen Time Seen by Provider: 03/21/20 19:58 PCP Primary Care Physician: ANGELA HPI Comment HPI Comment: PATIENT IS 75YR OLD FEMALE WITH HISTORY OF A FIB, INDWELLING WOUND VAC AND DEMENTIA IS IN ER WITH GENERALIZED WEAKNESS AND DIFFICULTY OF FAMILY TO CARE FOR HER AT HOME WITH WOUND VAC CARE AND OTHER SKILLED CARE REQUIREMENT. WOUND VAC IS INTACT AND DRAINING. DENIES FEVER. SACRAL WOUND IS CURRENTLY DRAINING VIA WOUND VAC. Complaint/Symptoms Chief Complaint Doctors Comments: GENERALIZED WEAKNESS AND INDWELLING WOUND VAC THAT FAMILY FINDS IT DIFFICULT TO CARE FOR AT HOME. Chief Complaint:: EMS INFORMED BY FAMILY TASHA JURADO THAT HE WAS NOT ABLE TO TAKE CARE OF HER ANYMORE. HE TOLD [facility] THATY HE TRIED TO KEEP HER OUT OF THE RESIDENTIAL BUT HE CAN'T TAKE CARE OF HER ANYMORE" PT DENIES ANY COMPLAINTS AT TIME OF TRIAGE COVID-19 Coronavirus risk:travel/contact w/high risk person: No Has patient experienced Coronavirus symptoms: No Nurses notes reviewed Nurses Notes Review: Yes Source History Provided: Patient and EMS Mode of Arrival Mode of Arrival: EMS Timing Onset of Chief Complaint: 03/21/20 Came on: Suddenly Duration Duration: Constant Duration: Days Location Location: LOWER BACK/SACRUM. Severity Severity: Moderate Modifying Factors Worsens:: SITTING INCREASE SACRAL PAIN. Improves:: REST HELP PAIN. Associated Signs and Symptoms Associated Signs and Symptoms: GENERALIZED WEAKNESS. Other History Other History: DENIES HISTORY OF DM. PMH PMH Past Medical History: Yes Past Medical History: Anxiety, Arthritis, CVA, Dementia, Depression, Dyslipidemia and Hypertension Past Surgical History: Yes Surgical History: Hysterectomy Past Surgical History Comment: WOUND VAC TO SACRAL AREA Family History History of Family Medical Conditions: Yes Family Medical History: Cancer Social History Type of Tobacco Use: None Does any household member use tobacco: No Alcohol Use: None Do you use any recreational Drugs:: No Lives With: Family Lives Where: Home Travel Risk Coronavirus risk:travel/contact w/high risk person: No Has patient experienced Coronavirus symptoms: No Infectious screening In the last 2 months have you had wt loss of >10#?: NO Have you had fever, night sweats or hemotysis?: No Have you traveled outside the country in the last 6 months?: No Isolation: Standard ROS Review of Systems Constitutional: No Symptoms Reported, See HPI, Weakness and Fatigue; negative Fever Eyes: No Symptoms Reported and See HPI ENTM: No Symptoms Reported and See HPI; negative Nose Discharge and Nose Congestion Respiratoy: See HPI and Short of Breath (ON EXERTION.); negative Wheezing Cardiovascular: No Symptoms Reported, See HPI and Edema; negative Chest Pain Gastrointestinal/Abdominal: No Symptoms Reported and See HPI; negative Abdominal Pain, Diarrhea and Vomiting Genitourinary: No Symptoms Reported and See HPI Neurological: See HPI and Weakness; negative Headache and Dizziness Musculoskeletal: See HPI and Back Pain (LOWER BACK PAIN.) Integumentary: See HPI, Change in Color and Wound (SACRAL WOUND.); negative Rash and Juandice Hematologic/Lymphatic: No Symptoms Reported, See HPI and Easy Bruising; negative Swollen Glands Endocrine: No Symptoms Reported and See HPI; negative Increased Thirst and Increased Urine Psychiatric: No Symptoms Reported and See HPI All Other Systems: Reviewed and Negative Unable to Obtain Due To: Dementia PE Vital Signs Vitals: Temperature 98.2 F Pulse Rate [Left Brachial] 103 Pulse Rate 99 Respiratory Rate 14 Blood Pressure [Left Arm] 166/77 Blood Pressure [Right Arm] 142/79 Blood Pressure 134/89 O2 Sat by Pulse Oximetry 98 General Limitations: No Limitations General Appearance: Alert and In No Apparent Distress Head Head Exam: Normal Inspection Eyes Eye exam: Normal Appearance and PERRL ENT ENT Exam: Normal Exam, Normal Oropharynx, Normal External Ear Exam and TM's Normal Bilaterally External Ear Exam: Normal External Inspection; negative Mastoid Tenderness TM/Canal Exam: Bilateral: Normal Nose Exam: Normal Nose Exam Mouth Exam: Normal Inspection Throat Exam: Normal Inspection Neck Neck Exam: Normal Inspection and Trachea Midline; negative Tenderness and Lymphadenopathy Chest Chest Inspection: Normal Inspection and Symmetric Chest Wall Rise; negative Tenderness Respiratory Respiratory Exam: Normal Lung Sounds Bilat; negative Accessory Muscle Use, Chest Wall Tenderness and Respiratory Distress Respiratory Exam: Bilateral: Rhonchi and Lower: Rhonchi Cardiovascular Cardiovascular Exam: Regular Rate, Normal Rhythm and Normal Heart Sounds; negative Systolic Murmur and Diastolic Murmur Abdominal Exam Abdominal Exam: Normal Inspection, Normal Bowel Sounds and Soft; negative Tenderness Extremities Extremities Exam: Normal Capillary Refill and Edema (SLIGHT EDEMA.) Back Back Exam: Normal Inspection, Tenderness (LOWER BACK TENDERNESS.) and Paraspinal Tenderness (LOWER BACK.) Neurologic Neurological Exam: Alert and Oriented X3; negative Motor Sensory Deficit Psychiatric Psychiatric Exam: Normal Affect and Normal Mood Skin Skin Exam: Rash (SACRAL WOUND.) MDM Differential Diagnosis Differential Diagnosis: SACRAL WOUND, GENERALIZED WEAKNESS, UTI, DEMENTIA. COURSE Treatment Treatment: SEE ORDERS. ROCEPHIN 1GM IVPB, NS 1L AT 100CC/HR AND METOPROLOL 50 MG PO IN ER. Consultation Consultation Comments: DISCUSSED PATIENT WITH DR. MILLER. HE WILL ADMIT PATIENT. Education/Counseling Education/Counseling: Patient Educated On: Diagnosis ROR Labs Reviewed Laboratory Results Reviewed?: Yes Result Diagrams: 03/25/20 05:25 03/25/20 05:25 Laboratory: 03/21/20 21:24 Urine,Catheterized Urine Culture - Final WBC 10.6 X10^3/uL (3.6-10.0) H 03/21/20 20:58 RBC 3.52 X10^6/uL (3.5-5.4) 03/21/20 20:58 Hgb 10.2 g/dL (12.0-16.0) L 03/21/20 20:58 Hct 31.6 % (36.0-47.0) L 03/21/20 20:58 MCV 89.9 fL (80.0-100.0) 03/21/20 20:58 MCH 29.0 pg (27.0-34.0) 03/21/20 20:58 MCHC 32.3 g/dL (33.0-35.0) L 03/21/20 20:58 RDW 16.3 % (11.6-16.5) 03/21/20 20:58 Plt Count 409 X10^3/uL (150.0-450.0) 03/21/20 20:58 MPV 8.4 fL (7.4-11.0) 03/21/20 20:58 Neut % (Auto) 74.9 % (42.0-75.0) 03/21/20 20:58 Lymph % (Auto) 18.3 % (21.0-51.0) L 03/21/20 20:58 [place] % (Auto) 4.9 % (0.0-13.0) 03/21/20 20:58 Eos % (Auto) 1.1 % (0.9-2.9) 03/21/20 20:58 Baso % (Auto) 0.8 % (0.2-1.0) 03/21/20 20:58 Neut # (Auto) 7.9 x10^3/uL (2.2-4.8) H 03/21/20 20:58 Lymph # (Auto) 1.9 X10^3/uL (1.3-2.9) 03/21/20 20:58 [place] # (Auto) 0.5 x10^3/uL (0.3-0.8) 03/21/20 20:58 Eos # (Auto) 0.1 x10^3/uL (0.0-0.2) 03/21/20 20:58 Baso # (Auto) 0.1 X10^3/uL (0.0-0.1) 03/21/20 20:58 Absolute Nucleated RBC 0.0 /100WBC 03/21/20 20:58 Sodium 145 mmol/L (136-145) 03/21/20 20:58 Corrected Sodium 146 mmol/L (136-145) H 03/21/20 20:58 Potassium 3.8 mmol/L (3.5-5.1) 03/21/20 20:58 Chloride 109 mmol/L (98-107) H 03/21/20 20:58 Carbon Dioxide 26.3 mmol/L (21-32) 03/21/20 20:58 BUN 48 mg/dL (7-18) H 03/21/20 20:58 Creatinine 2.04 mg/dL (0.55-1.02) H 03/21/20 20:58 Est GFR (MDRD) Af Amer 31 (>60) L 03/21/20 20:58 Est GFR (MDRD) Non-Af 25 (>60) L 03/21/20 20:58 Glucose 140 mg/dL (65-99) H 03/21/20 20:58 Calcium 9.2 mg/dL (8.5-10.1) 03/21/20 20:58 Corrected Calcium 10.1 mg/dL (8.5-10.1) 03/21/20 20:58 Total Bilirubin 0.30 mg/dL (0.2-1.0) 03/21/20 20:58 AST 22 Units/L (15-37) 03/21/20 20:58 ALT 21 Units/L (12-78) 03/21/20 20:58 Alkaline Phosphatase 59 Units/L (46-116) 03/21/20 20:58 Creatine Kinase 105 Units/L (26-192) 03/21/20 20:58 CK-MB (CK-2) < 1.0 ng/mL (0-4.0) 03/21/20 20:58 CK/CKMB % Calc 1.0 % (<4) 03/21/20 20:58 Troponin I < 0.02 ng/mL (0-1.5) 03/21/20 20:58 Total Protein 7.0 g/dL (6.4-8.2) 03/21/20 20:58 Albumin 2.9 g/dL (3.4-5.0) L 03/21/20 20:58 Globulin 4.1 g/dL (2.5-4.5) 03/21/20 20:58 Albumin/Globulin Ratio 0.7 Ratio (1.1-2.1) L 03/21/20 20:58 Specimen Type Catherized urine 03/21/20 21:24 Urine Color Yellow (YELLOW) 03/21/20 21:24 Urine Appearance Hazy (CLEAR) 03/21/20 21:24 Urine pH 5.0 (5.0 - 8.0) 03/21/20 21:24 Ur Specific [place] 1.020 (1.000-1.030) 03/21/20 21:24 Urine Protein 2+ (NEGATIVE) 03/21/20 21:24 Urine Glucose (UA) Negative (NEGATIVE) 03/21/20 21:24 Urine Ketones Negative (NEGATIVE) 03/21/20 21:24 Urine Occult Blood 4+ (NEGATIVE) 03/21/20 21:24 Urine Nitrite Negative (NEGATIVE) 03/21/20 21:24 Urine Bilirubin Negative (NEGATIVE) 03/21/20 21:24 Urine Urobilinogen Normal (NORMAL) 03/21/20 21:24 Ur Leukocyte Esterase 3+ (NEGATIVE) 03/21/20 21:24 Urine RBC 10-20 /HPF (0-3) A 03/21/20 21:24 Urine WBC Tntc /HPF (0-5) A 03/21/20 21:24 Ur Squamous Epith Cells Rare /HPF (NEGATIVE) 03/21/20 21:24 Ur Transition Epith Cell Rare /HPF (NEGATIVE) 03/21/20 21:24 Urine Bacteria Trace /HPF (NEGATIVE) 03/21/20 21:24 Hyaline Casts Many /LPF (NEGATIVE) 03/21/20 21:24 Urine Mucus Moderate /HPF (NEGATIVE) 03/21/20 21:24 Urine Yeast Few /HPF (NEGATIVE) 03/21/20 21:24 Ur Culture Indicated? Yes/culture set up 03/21/20 21:24 XRAY XRAY Interpreted by: Radiologist (REPORT NOTED AND DISCUSSED WITH PATIENT.) and Self EKG Rate: 94 [place]: LAD Rhythm: Afib Block: None Hypertrophy: None ST: Old, Ant, Lat, Infarct and Nonsp Opioid Opioid Risk Tool Age (Noemí box if 16-45): No History of Preadolescent Sexual Abuse: No Total: 0 Total Score Risk Category: Low Risk Copyright: [facility] predicting aberrant behaviors Diagnosis Discharge Problem: Encounter for management of wound VAC, Generalized weakness UTI (urinary tract infection) Qualifiers: Urinary tract infection type: site unspecified Hematuria presence: with hematuria Qualified Code(s): N39.0 - Urinary tract infection, site not specified Decubitus ulcer of sacral area Qualifiers: Pressure injury stage: pressure injury of deep tissue Qualified Code(s): L89.156 - Pressure-induced deep tissue damage of sacral region Atrial fibrillation Qualifiers: Atrial fibrillation type: persistent (not longstanding) Qualified Code(s): I48.19 - Other persistent atrial fibrillation
== END 2020-03-25 16:00 | DRG 308 ==
LOC: OBS 19:51 → ER 19:51 → OBSVTOIN 03-22 02:12 → OBS 03-22 07:09 → MED/SURG 03-22 17:52
PROVIDERS: ADMIT Internal Medicine; ATTEND Internal Medicine
DX: N30.00 Acute cystitis without hematuria; Z86.73 Personal history of transient ischemic attack (TIA), and cerebral infarction without residual deficits; R06.02 Shortness of breath; R26.89 Other abnormalities of gait and mobility; F41.8 Other specified anxiety disorders; I10 Essential (primary) hypertension; M86.8X8 Other osteomyelitis, other site; R62.7 Adult failure to thrive; I48.91 Unspecified atrial fibrillation; Z79.01 Long term (current) use of anticoagulants; L89.154 Pressure ulcer of sacral region, stage 4; R53.1 Weakness; R94.31 Abnormal electrocardiogram [ECG] [EKG]; E78.2 Mixed hyperlipidemia

== ENCOUNTER 2020-07-08 12:39 | Inpatient (IN) ==
--- NOTE | 2020-07-08 13:42 | DR.DIZZY ---
HPI Time seen Time Seen by Provider: 07/08/20 12:51 Complaint Chief Complaint Doctor Comments: pt with general malaise and weakness times several days no fever chills had episode of A Fib with RVR en route Pt has dementia can not provide hx no family members present Context Stroke Symptoms: None PMH PMH Past Medical History: Anxiety, Arthritis, CVA, Dementia, Depression, Dyslipidemia and Hypertension Past Surgical History: Yes Surgical History: Hysterectomy Family History Family Medical History: Cancer Social History Do you use any recreational Drugs:: No ROS Review of Systems Unable to Obtain Due To: Dementia PE Vital Signs Vitals: Temperature 98.3 F Pulse Rate [Right Brachial] 61 Pulse Rate 67 Respiratory Rate 27 Blood Pressure [Left Arm] 129/76 Blood Pressure [Right Arm] 137/67 Blood Pressure 235/141 O2 Sat by Pulse Oximetry 95 General Limitations: Other (dmentia ) General Appearance: Alert and In No Apparent Distress Head Head Exam: Normal Inspection, Atraumatic and Normocephalic Eyes Eye exam: Normal Appearance, PERRL and EOMI; negative Scleral Icterus, Conjunctival Injection and Nystagmus Pupils: Regular, Round: Bilateral Sclera/Conjunctival: Normal Inspection: Bilateral Anterior Chamber: Normal Inspection: Bilateral Posterior Chamber: Deferred: Bilateral ENT ENT Exam: Normal Exam, Normal External Ear Exam and Mucous Membranes Dry Neck Neck Exam: Normal Inspection, Full ROM and Trachea Midline; negative Tenderness, Meningismus and Lymphadenopathy Chest Chest Inspection: Normal Inspection and Symmetric Chest Wall Rise; negative Tenderness Respiratory Respiratory Exam: Normal Lung Sounds Bilat; negative Accessory Muscle Use and Chest Wall Tenderness Respiratory Exam: Bilateral: Clear to Auscultation Cardiovascular Cardiovascular Exam: Regular Rate, Normal Rhythm and Normal Heart Sounds Abdominal Exam Abdominal Exam: Normal Inspection, Normal Bowel Sounds and Soft; negative Distention, Tenderness and Guarding Rectal Rectal Exam: Deferred Extremeties Extremities Exam: Normal Inspection, Full ROM and Other (pt prefers top keep knees flexed); negative Tenderness, Edema and Joint Swelling Back Back Exam: Normal Inspection and Full ROM; negative Tenderness, (R) CVA Tenderness, (L) CVA Tenderness and Muscle Spasm Neurologic Neurological Exam: Other (pt awake resonds to commands has her chronic dementia ) Psychiatric Psychiatric Exam: Normal Affect and Normal Mood Skin Skin Exam: Warm, Dry and Intact MDM Differential Diagnosis Differential Diagnosis: Anemia, Dehydration, Dysrhythmia, Electrolyte disorder, Hypoglycemia, Labyrinthitis and Other (sepsis uti pneumonia ) ROR Labs Reviewed Laboratory Results Reviewed?: Yes Result Diagrams: 07/08/20 13:23 07/08/20 13:23 Laboratory: WBC 12.2 X10^3/uL (3.6-10.0) H 07/08/20 13:23 RBC 3.92 X10^6/uL (3.5-5.4) 07/08/20 13:23 Hgb 8.5 g/dL (12.0-16.0) L 07/08/20 13:23 Hct 28.7 % (36.0-47.0) L 07/08/20 13:23 MCV 73.3 fL (80.0-100.0) L 07/08/20 13:23 MCH 21.8 pg (27.0-34.0) L 07/08/20 13:23 MCHC 29.7 g/dL (33.0-35.0) L 07/08/20 13:23 RDW 18.7 % (11.6-16.5) H 07/08/20 13:23 Plt Count 340 X10^3/uL (150.0-450.0) 07/08/20 13:23 Plt Count Comment Adequate (ADEQUATE) 07/08/20 13:23 MPV 9.0 fL (7.4-11.0) 07/08/20 13:23 Neut % (Auto) 78.0 % (42.0-75.0) H 07/08/20 13:23 Lymph % (Auto) 13.7 % (21.0-51.0) L 07/08/20 13:23 [place] % (Auto) 7.7 % (0.0-13.0) 07/08/20 13:23 Eos % (Auto) 0.3 % (0.9-2.9) L 07/08/20 13:23 Baso % (Auto) 0.3 % (0.2-1.0) 07/08/20 13:23 Neut # (Auto) 9.5 x10^3/uL (2.2-4.8) H 07/08/20 13:23 Lymph # (Auto) 1.7 X10^3/uL (1.3-2.9) 07/08/20 13:23 [place] # (Auto) 0.9 x10^3/uL (0.3-0.8) H 07/08/20 13:23 Eos # (Auto) 0.0 x10^3/uL (0.0-0.2) 07/08/20 13:23 Baso # (Auto) 0.0 X10^3/uL (0.0-0.1) 07/08/20 13:23 Absolute Nucleated RBC 0.0 /100WBC 07/08/20 13:23 Plt Morphology Comment Normal (NORMAL) 07/08/20 13:23 RBC Morphology Abnormal (NORMAL) A 07/08/20 13:23 Hypochromasia 2+ A 07/08/20 13:23 Sodium 144 mmol/L (136-145) 07/08/20 13:23 Corrected Sodium 145 mmol/L (136-145) 07/08/20 13:23 Potassium 3.3 mmol/L (3.5-5.1) L 07/08/20 13:23 Chloride 105 mmol/L (98-107) 07/08/20 13:23 Carbon Dioxide 26.9 mmol/L (21-32) 07/08/20 13:23 BUN 36 mg/dL (7-18) H 07/08/20 13:23 Creatinine 1.42 mg/dL (0.55-1.02) H 07/08/20 13:23 Est GFR (MDRD) Af Amer 47 (>60) L 07/08/20 13:23 Est GFR (MDRD) Non-Af 39 (>60) L 07/08/20 13:23 Glucose 150 mg/dL (65-99) H 07/08/20 13:23 Lactic Acid 1.8 mmol/L (0.4-2.0) 07/08/20 14:30 Calcium 10.0 mg/dL (8.5-10.1) 07/08/20 13:23 Corrected Calcium 11.0 mg/dL (8.5-10.1) H 07/08/20 13:23 Total Bilirubin 0.30 mg/dL (0.2-1.0) 07/08/20 13:23 AST 22 Units/L (15-37) 07/08/20 13:23 ALT 22 Units/L (12-78) 07/08/20 13:23 Alkaline Phosphatase 65 Units/L (46-116) 07/08/20 13:23 Troponin I < 0.02 ng/mL (0-1.5) 07/08/20 13:23 Total Protein 7.7 g/dL (6.4-8.2) 07/08/20 13:23 Albumin 2.7 g/dL (3.4-5.0) L 07/08/20 13:23 Globulin 5.0 g/dL (2.5-4.5) H 07/08/20 13:23 Albumin/Globulin Ratio 0.5 Ratio (1.1-2.1) L 07/08/20 13:23 Specimen Type Catherized urine 07/08/20 13:12 Urine Color Yellow (YELLOW) 07/08/20 13:12 Urine Appearance Cloudy (CLEAR) 07/08/20 13:12 Urine pH 8.0 (5.0 - 8.0) 07/08/20 13:12 Ur Specific [place] 1.015 (1.000-1.030) 07/08/20 13:12 Urine Protein 3+ (NEGATIVE) 07/08/20 13:12 Urine Glucose (UA) Negative (NEGATIVE) 07/08/20 13:12 Urine Ketones Negative (NEGATIVE) 07/08/20 13:12 Urine Occult Blood 3+ (NEGATIVE) 07/08/20 13:12 Urine Nitrite Negative (NEGATIVE) 07/08/20 13:12 Urine Bilirubin Negative (NEGATIVE) 07/08/20 13:12 Urine Urobilinogen Normal (NORMAL) 07/08/20 13:12 Ur Leukocyte Esterase 3+ (NEGATIVE) 07/08/20 13:12 Urine RBC 5-10 /HPF (0-3) A 07/08/20 13:12 Urine WBC Tntc /HPF (0-5) A 07/08/20 13:12 Ur Squamous Epith Cells Rare /HPF (NEGATIVE) 07/08/20 13:12 Urine Bacteria 3+ /HPF (NEGATIVE) 07/08/20 13:12 Ur Culture Indicated? Yes/culture set up 07/08/20 13:12 SARS CoV-2 RNA Rapid IESHA Negative (NEGATIVE) 07/08/20 16:30 Opioid Opioid Risk Tool Age (Elmer box if 16-45): No History of Preadolescent Sexual Abuse: No Total: 0 Total Score Risk Category: Low Risk Copyright: Rogelio SANCHEZ predicting aberrant behaviors Diagnosis Discharge Problem: Generalized weakness Sepsis Qualifiers: Sepsis type: sepsis due to unspecified organism Sepsis acute organ dysfunction status: without acute organ dysfunction Qualified Code(s): A41.9 - Sepsis, unspecified organism Urinary tract infection Qualifiers: Urinary tract infection type: site unspecified Hematuria presence: without hematuria Qualified Code(s): N39.0 - Urinary tract infection, site not specified Atrial fibrillation Qualifiers: Atrial fibrillation type: unspecified chronic Qualified Code(s): I48.20 - Chronic atrial fibrillation, unspecified
[2020-07-08 13:53] LABS: BASOPHILS % (AUTO) 0.3 % (0.2-1.0); EOSINOPHILS % (AUTO) 0.3 % (0.9-2.9); HEMATOCRIT 28.7 % (36.0-47.0); HEMOGLOBIN 8.5 g/dL (12.0-16.0); LYMPHOCYTES # (AUTO) 1.7 X10^3/uL (1.3-2.9); LYMPHOCYTES % (AUTO) 13.7 % (21.0-51.0); MEAN CORPUSCULAR HEMOGLOBIN 21.8 pg (27.0-34.0); MEAN CORPUSCULAR HGB CONC 29.7 g/dL (33.0-35.0); MEAN CORPUSCULAR VOLUME 73.3 fL (80.0-100.0); MONOCYTES # (AUTO) 0.9 x10^3/uL (0.3-0.8); MONOCYTES % (AUTO) 7.7 % (0.0-13.0); NEUTROPHILS # (AUTO) 9.5 x10^3/uL (2.2-4.8); PLATELET COUNT 340 X10^3/uL (150.0-450.0); RED BLOOD COUNT 3.92 X10^6/uL (3.5-5.4); RED CELL DISTRIBUTION WIDTH 18.7 % (11.6-16.5); WHITE BLOOD COUNT 12.2 X10^3/uL (3.6-10.0)
[2020-07-08 13:59] LABS: ALANINE AMINOTRANSFERASE 22 Units/L (12-78); ALBUMIN 2.7 g/dL (3.4-5.0); ALKALINE PHOSPHATASE 65 Units/L (46-116); ASPARTATE AMINO TRANSFERASE 22 Units/L (15-37); BLOOD UREA NITROGEN 36 mg/dL (7-18); CARBON DIOXIDE 26.9 mmol/L (21-32); CHLORIDE 105 mmol/L (98-107); COR NA(FOR HYPERGLY) 145 mmol/L (136-145); CREATININE 1.42 mg/dL (0.55-1.02); TOTAL PROTEIN 7.7 g/dL (6.4-8.2); TROPONIN I < 0.02 ng/mL (0-1.5); eGFR NON BLACK RACES 39 (>60)
[2020-07-08 14:08] LABS: HYPOCHROMASIA 2+; PLATELET MORPHOLOGY COMMENT NORMAL (NORMAL)
[2020-07-08 14:47] LABS: APPEARANCE,URINE CLOUDY (CLEAR); COLOR,URINE YELLOW (YELLOW); PROTEIN,URINE 3+ (NEGATIVE)
[2020-07-08 14:48] LABS: BILIRUBIN,URINE NEGATIVE (NEGATIVE); BLOOD/HEMOGLOBIN,URINE 3+ (NEGATIVE); GLUCOSE, URINE NEGATIVE (NEGATIVE); KETONES,URINE NEGATIVE (NEGATIVE); LEUKOCYTE ESTERASE ,URINE 3+ (NEGATIVE); NITRITES,URINE NEGATIVE (NEGATIVE); UROBILINOGEN,URINE NORMAL (NORMAL)
[2020-07-08 14:49] LABS: BACTERIA,URINE 3+ /HPF (NEGATIVE); SQUAMOUS EPITHELIAL CELL,UR RARE /HPF (NEGATIVE)
[2020-07-08 14:51] LABS: SODIUM 144 mmol/L (136-145)
[2020-07-08] MEDS ORDERED: ROCEPHIN 1 GRAM IV PREMIX 1 G/50 ML IV.SOLN. IV ONE ×3 (15:23→23:48)
[2020-07-08] MEDS ORDERED: NS 500 ML IV 500 ML IV ONE (15:27)
[2020-07-08] MEDS ORDERED: NORCO 5/325 MG TAB PO PRN (23:40)
[2020-07-08] MEDS ORDERED: ROCEPHIN 1 GRAM IV PREMIX 1 G/50 ML IV.SOLN. IV SCH (23:40)
[2020-07-08] MEDS ORDERED: ZESTRIL TAB 20 MG ONE (23:47)
[2020-07-08] MEDS ORDERED: XANAX ONE (23:47)
[2020-07-08] MEDS ORDERED: NORCO 5/325 MG TAB ONE (23:48)
[2020-07-08] MEDS: XANAX PO SCH (23:50)
[2020-07-08] MEDS: ZESTRIL TAB 20 MG PO SCH (23:50)
[2020-07-09 01:49] VITALS: BMI 19.9
[2020-07-09] MEDS ORDERED: K-RIDER 10 MEQ/NS 100 ML 10 MEQ/100 ML BAG IV PRN (08:11)
[2020-07-09] MEDS ORDERED: POTASSIUM CHLORIDE LIQ 20 MEQ UDC PO PRN (08:11)
[2020-07-09] MEDS ORDERED: POTASSIUM CHL 40 MEQ/NS 0.45% 500 ML IV PRN (08:11)
[2020-07-09] MEDS ORDERED: MAGNESIUM SULFATE 1 GRAM/100 mL PREMIX 1 GM/100 ML BAG IV PRN (08:11)
[2020-07-09] MEDS ORDERED: POTASSIUM CHL 60 MEQ/NS 0.45% 500 ML IV PRN (08:11)
[2020-07-09] MEDS ORDERED: MICRO K EXTEN CAP 10 MEQ PO PRN (08:11)
[2020-07-09] MEDS ORDERED: KLOR-CON PO PRN (08:11)
[2020-07-09] MEDS ORDERED: ZESTRIL TAB 20 MG ONE ×2 (08:25→20:50)
[2020-07-09] MEDS ORDERED: PREVACID PO ONE (08:31)
[2020-07-09] MEDS ORDERED: HYDROCHLOROTHIAZIDE 25 MG TAB ONE (08:31)
[2020-07-09] MEDS ORDERED: PLAVIX ONE (08:31)
[2020-07-09] MEDS ORDERED: TOPROL XL PO ONE (08:39)
[2020-07-09] MEDS: ASPIRIN EC 81 MG PO SCH (08:43)
[2020-07-09] MEDS: CORDARONE TAB 200 MG PO SCH (08:44)
[2020-07-09] MEDS: CRESTOR TAB 10 MG PO SCH (08:44)
[2020-07-09] MEDS: HYDROCHLOROTHIAZIDE 25 MG TAB PO SCH (08:45)
[2020-07-09] MEDS: PLAVIX PO SCH (08:45)
[2020-07-09] MEDS: PREVACID PO SCH (08:46)
[2020-07-09] MEDS: SINGULAIR TAB 10 MG PO SCH (08:47)
[2020-07-09] MEDS: XARELTO PO SCH (08:58)
[2020-07-09] MEDS: XANAX PO SCH ×3 (08:59→21:12)
[2020-07-09] MEDS ORDERED: MEGESTROL PO SCH (09:00)
[2020-07-09 09:08] LABS: BASOPHILS # (AUTO) 0.1 X10^3/uL (0.0-0.1); BASOPHILS % (AUTO) 0.6 % (0.2-1.0); EOSINOPHILS # (AUTO) 0.1 x10^3/uL (0.0-0.2); EOSINOPHILS % (AUTO) 0.5 % (0.9-2.9); HEMATOCRIT 28.4 % (36.0-47.0); HEMOGLOBIN 8.6 g/dL (12.0-16.0); LYMPHOCYTES % (AUTO) 17.9 % (21.0-51.0); MEAN CORPUSCULAR HGB CONC 30.1 g/dL (33.0-35.0); MEAN CORPUSCULAR VOLUME 73.1 fL (80.0-100.0); MEAN PLATELET VOLUME 9.1 fL (7.4-11.0); MONOCYTES # (AUTO) 0.8 x10^3/uL (0.3-0.8); MONOCYTES % (AUTO) 7.5 % (0.0-13.0); NEUTROPHILS % (AUTO) 73.5 % (42.0-75.0); PLATELET COUNT 343 X10^3/uL (150.0-450.0); RED BLOOD COUNT 3.88 X10^6/uL (3.5-5.4); RED CELL DISTRIBUTION WIDTH 19.2 % (11.6-16.5); WHITE BLOOD COUNT 10.9 X10^3/uL (3.6-10.0)
--- NOTE | 2020-07-09 09:19 | RAD ---
HISTORYCAD, CHF, AFIBSTUDYCHEST, 1 VIEWCOMPARISONPortable chest March 25, 2020.FINDINGSThe trachea is midline. The cardiac silhouette is unremarkable . The lungs are clear without focal infiltrate or effusion. The bony thorax is unremarkable.IMPRESSIONNo acute cardiopulmonary disease. And no change from prior film March 25, 2020 other than interval removal of the PICC line since the last studyElectronically signed by: RUDOLPH EDOUARD (Jul 09, 2020 09:17:31)
[2020-07-09 09:20] LABS: ALBUMIN 2.6 g/dL (3.4-5.0); CALCIUM 9.8 mg/dL (8.5-10.1); CARBON DIOXIDE 25.5 mmol/L (21-32); COR CA(FOR HYPOALB) 10.9 mg/dL (8.5-10.1); CREATININE 1.68 mg/dL (0.55-1.02); MAGNESIUM 2.1 mg/dL (1.7-2.9); TOTAL PROTEIN 7.6 g/dL (6.4-8.2)
[2020-07-09 09:41] LABS: HYPOCHROMASIA 1+; PLATELET MORPHOLOGY COMMENT NORMAL (NORMAL)
[2020-07-09] MEDS: TOPROL XL PO SCH (10:01)
[2020-07-09] MEDS: ZESTRIL TAB 20 MG PO SCH ×2 (10:02→21:13)
--- NOTE | 2020-07-09 13:56 | DR.H&P ---
H&P - History & Physical for Day of: H&P Date: 07/08/20 - Chief Complaint Chief Complaint: WEAKNESS, SOB - History of Present Illness History of Present Illness: PT IS 75 WF ER ADMISSION WITH MALAISE AND SOB. PT HAS PMH OF AFIB, PT WAS IN AFIB WITH RVR. PT HAS PMH OF HTN, OA, HX CVA WITH BED CONFINEMENT. PT WAS RECENTLY AT TO FOR SNC DUE TO SCARAL DECUBITUS THAT REQUIRED WOUND VAC, WHICH HAS RESOLVED. PT ADMITTED FOR TREATMENT OF ACUTE ILLNESS. - Past Medical History Past Medical History: Hypertension, Dyslipidemia, Dementia, Depression, Anxiety, CVA, Arthritis Additional Medical History: AFIB - Past Surgical History Surgical History: Hysterectomy - Family History Family Medical History: Cancer - Social History Does patient currently use any type of tobacco product: No Alcohol Use: None Drug Use: None - Medications Home Medications: No Known Drug Allergies Allergy (Verified 01/23/20 18:03) CONTINUE taking the following medications alprazolam 0.25 mg PO BID 07/09/20 [History] - Review of Systems Constitutional: Weakness, Malaise Eyes: No Symptoms Reported ENT: No Symptoms Reported Respiratory: No Symptoms Reported Cardiovascular: No Symptoms Reported Gastrointestinal: Nausea Genitourinary: No Symptoms Reported Musculoskeletal: Back Pain Skin: Wound (STAGE 1 SACRAL) Neurological: Weakness - Physical Exam Vital Signs: Temperature 98.2 F Pulse Rate [Left] 62 Pulse Rate [Right Brachial] 60 Pulse Rate 77 Respiratory Rate 20 Blood Pressure [Left Arm] 137/67 Blood Pressure [Right Arm] 135/60 Blood Pressure 156/74 O2 Sat by Pulse Oximetry 97 Oriented: Normal Eyes: Normal Ear: Normal Nose: Normal Throat: Normal Respiratory: RLL Diminished, LLL Diminished Cardiovascular: Normal, Murmur : Normal Auscultation: Bowel Sounds: Normal Palpation: Normal Tenderness: Normal Skin: Decreased Turgur Musculoskeletal: Right, Left, Back:Lumbar, Motor Deficit Psychiatric: Anxiety Affect: Anxious Speech Pattern: Clear, Appropriate - Assessment/Plan (1) UTI (urinary tract infection) Qualifiers: Urinary tract infection type: site unspecified Hematuria presence: without hematuria Qualified Code(s): N39.0 - Urinary tract infection, site not specified Status: Acute Plan: ADMIT, IV HYDRATION, CARDIAC MONITORING. BLOOD AND URINE CULTURE ON ADMISSION. STRICT I&OS, CARDIAC MONITORING. CXR ON ADMISSION (2) Atrial fibrillation Qualifiers: Atrial fibrillation type: unspecified chronic Qualified Code(s): I48.20 - Chronic atrial fibrillation, unspecified Status: Acute (3) History of CVA (cerebrovascular accident) Status: Acute (4) Hypertension Status: Acute (5) Generalized weakness Status: Acute - Allergies Allergies/Adverse Reactions: Allergies Allergy/AdvReac Type Severity Reaction Status Date / Time No Known Drug Allergies Allergy Verified 01/23/20 18:03
[2020-07-09] MEDS: NS 1000 ML 1,000 ML IV SCH ×2 (14:49→18:46)
[2020-07-09] MEDS: K-DUR TAB 20 MEQ PO PRN (17:49)
[2020-07-09] MEDS: NORCO 5/325 MG TAB PO PRN (21:14)
[2020-07-09] MEDS: ROCEPHIN 1 GRAM IV PREMIX 1 G/50 ML IV.SOLN. IV SCH (23:50)
[2020-07-10 06:55] LABS: BASOPHILS # (AUTO) 0.1 X10^3/uL (0.0-0.1); BASOPHILS % (AUTO) 0.6 % (0.2-1.0); EOSINOPHILS # (AUTO) 0.2 x10^3/uL (0.0-0.2); EOSINOPHILS % (AUTO) 1.9 % (0.9-2.9); HEMATOCRIT 25.4 % (36.0-47.0); HEMOGLOBIN 7.7 g/dL (12.0-16.0); LYMPHOCYTES # (AUTO) 2.1 X10^3/uL (1.3-2.9); LYMPHOCYTES % (AUTO) 20.1 % (21.0-51.0); MEAN CORPUSCULAR HEMOGLOBIN 22.2 pg (27.0-34.0); MEAN CORPUSCULAR HGB CONC 30.4 g/dL (33.0-35.0); MEAN CORPUSCULAR VOLUME 73.2 fL (80.0-100.0); MEAN PLATELET VOLUME 9.1 fL (7.4-11.0); MONOCYTES # (AUTO) 0.9 x10^3/uL (0.3-0.8); NEUTROPHILS % (AUTO) 68.4 % (42.0-75.0); PLATELET COUNT 276 X10^3/uL (150.0-450.0); RED BLOOD COUNT 3.47 X10^6/uL (3.5-5.4); WHITE BLOOD COUNT 10.3 X10^3/uL (3.6-10.0)
[2020-07-10 06:56] LABS: ALANINE AMINOTRANSFERASE 27 Units/L (12-78); ALBUMIN 2.3 g/dL (3.4-5.0); ALKALINE PHOSPHATASE 58 Units/L (46-116); ASPARTATE AMINO TRANSFERASE 39 Units/L (15-37); BLOOD UREA NITROGEN 34 mg/dL (7-18); CALCIUM 9.4 mg/dL (8.5-10.1); CARBON DIOXIDE 26.3 mmol/L (21-32); CHLORIDE 106 mmol/L (98-107); COR CA(FOR HYPOALB) 10.8 mg/dL (8.5-10.1); CREATININE 1.24 mg/dL (0.55-1.02); SODIUM 142 mmol/L (136-145); eGFR NON BLACK RACES 45 (>60)
[2020-07-10 07:04] LABS: HYPOCHROMASIA 1+; MICROCYTOSIS SLIGHT; PLATELET MORPHOLOGY COMMENT NORMAL (NORMAL)
[2020-07-10] MEDS: NS 1000 ML 1,000 ML IV SCH ×2 (07:27→20:32)
[2020-07-10] MEDS ORDERED: TOPROL XL PO ONE (09:19)
[2020-07-10] MEDS ORDERED: ZESTRIL TAB 20 MG ONE ×2 (09:19→20:22)
[2020-07-10] MEDS: ASPIRIN EC 81 MG PO SCH (09:54)
[2020-07-10] MEDS: HYDROCHLOROTHIAZIDE 25 MG TAB PO SCH ×2 (09:56→10:00)
[2020-07-10] MEDS: ZESTRIL TAB 20 MG PO SCH ×3 (09:56→20:46)
[2020-07-10] MEDS: XANAX PO SCH ×2 (09:56→20:47)
[2020-07-10] MEDS: CRESTOR TAB 10 MG PO SCH (09:57)
[2020-07-10] MEDS: XARELTO PO SCH (09:58)
[2020-07-10] MEDS: MEGACE ORAL SUSP 400 MG/10 ML PO SCH (09:58)
[2020-07-10] MEDS: PREVACID PO SCH (10:00)
[2020-07-10] MEDS: TOPROL XL PO SCH (10:00)
[2020-07-10] MEDS: SINGULAIR TAB 10 MG PO SCH (10:00)
[2020-07-10] MEDS: PLAVIX PO SCH (10:01)
[2020-07-10] MEDS: CORDARONE TAB 200 MG PO SCH (10:02)
[2020-07-10] MEDS: HEMOCYTE-PLUS PO SCH (12:15)
[2020-07-10] MEDS: NORCO 5/325 MG TAB PO PRN (20:47)
[2020-07-10] MEDS: ROCEPHIN 1 GRAM IV PREMIX 1 G/50 ML IV.SOLN. IV SCH (22:09)
[2020-07-11 06:39] LABS: BASOPHILS # (AUTO) 0.1 X10^3/uL (0.0-0.1); BASOPHILS % (AUTO) 0.6 % (0.2-1.0); EOSINOPHILS # (AUTO) 0.1 x10^3/uL (0.0-0.2); EOSINOPHILS % (AUTO) 1.1 % (0.9-2.9); HEMATOCRIT 23.8 % (36.0-47.0); HEMOGLOBIN 7.4 g/dL (12.0-16.0); LYMPHOCYTES % (AUTO) 23.6 % (21.0-51.0); MEAN CORPUSCULAR HEMOGLOBIN 22.9 pg (27.0-34.0); MEAN CORPUSCULAR HGB CONC 31.3 g/dL (33.0-35.0); MONOCYTES # (AUTO) 0.7 x10^3/uL (0.3-0.8); MONOCYTES % (AUTO) 8.1 % (0.0-13.0); NEUTROPHILS # (AUTO) 5.7 x10^3/uL (2.2-4.8); NEUTROPHILS % (AUTO) 66.6 % (42.0-75.0); PLATELET COUNT 280 X10^3/uL (150.0-450.0); RED BLOOD COUNT 3.25 X10^6/uL (3.5-5.4); RED CELL DISTRIBUTION WIDTH 18.8 % (11.6-16.5); WHITE BLOOD COUNT 8.6 X10^3/uL (3.6-10.0)
[2020-07-11 07:00] LABS: ALANINE AMINOTRANSFERASE 38 Units/L (12-78); ALBUMIN 2.2 g/dL (3.4-5.0); ALKALINE PHOSPHATASE 56 Units/L (46-116); ASPARTATE AMINO TRANSFERASE 42 Units/L (15-37); BLOOD UREA NITROGEN 21 mg/dL (7-18); CARBON DIOXIDE 27.4 mmol/L (21-32); CHLORIDE 104 mmol/L (98-107); COR CA(FOR HYPOALB) 10.4 mg/dL (8.5-10.1); SODIUM 139 mmol/L (136-145); TOTAL PROTEIN 6.6 g/dL (6.4-8.2); eGFR NON BLACK RACES 58 (>60)
[2020-07-11 07:08] LABS: ANISOCYTOSIS 1+; HYPOCHROMASIA 1+; MICROCYTOSIS 1+; PLATELET MORPHOLOGY COMMENT NORMAL (NORMAL)
[2020-07-11] MEDS ORDERED: ZESTRIL TAB 20 MG ONE ×2 (08:18→19:42)
[2020-07-11] MEDS ORDERED: TOPROL XL PO ONE (08:18)
[2020-07-11] MEDS: ASPIRIN EC 81 MG PO SCH (08:51)
[2020-07-11] MEDS: TOPROL XL PO SCH (08:52)
[2020-07-11] MEDS: SINGULAIR TAB 10 MG PO SCH (08:52)
[2020-07-11] MEDS: PREVACID PO SCH (08:52)
[2020-07-11] MEDS: ZESTRIL TAB 20 MG PO SCH ×2 (08:52→20:56)
[2020-07-11] MEDS: MEGACE ORAL SUSP 400 MG/10 ML PO SCH (08:52)
[2020-07-11] MEDS: XARELTO PO SCH (08:52)
[2020-07-11] MEDS: XANAX PO SCH ×2 (08:52→20:57)
[2020-07-11] MEDS: PLAVIX PO SCH (08:53)
[2020-07-11] MEDS: HYDROCHLOROTHIAZIDE 25 MG TAB PO SCH (08:53)
[2020-07-11] MEDS: CRESTOR TAB 10 MG PO SCH (08:53)
[2020-07-11] MEDS: HEMOCYTE-PLUS PO SCH (08:53)
[2020-07-11] MEDS: CORDARONE TAB 200 MG PO SCH (08:54)
[2020-07-11] MEDS ORDERED: NS 100 ML IV 100 ML with VENOFER 400 MG IV NR ×2 (12:00)
[2020-07-11] MEDS: NORCO 5/325 MG TAB PO PRN (20:57)
[2020-07-11] MEDS: NS 1000 ML 1,000 ML IV SCH ×2 (21:23→23:28)
[2020-07-11] MEDS: K-DUR TAB 20 MEQ PO PRN (21:57)
[2020-07-11] MEDS: ROCEPHIN 1 GRAM IV PREMIX 1 G/50 ML IV.SOLN. IV SCH (22:19)
[2020-07-12] MEDS: NS 1000 ML 1,000 ML IV SCH ×2 (05:39→17:09)
[2020-07-12 06:50] LABS: ALANINE AMINOTRANSFERASE 34 Units/L (12-78); ALBUMIN 2.2 g/dL (3.4-5.0); ALKALINE PHOSPHATASE 49 Units/L (46-116); ASPARTATE AMINO TRANSFERASE 26 Units/L (15-37); BLOOD UREA NITROGEN 16 mg/dL (7-18); CALCIUM 9.2 mg/dL (8.5-10.1); CARBON DIOXIDE 25.2 mmol/L (21-32); CHLORIDE 106 mmol/L (98-107); COR CA(FOR HYPOALB) 10.6 mg/dL (8.5-10.1); CREATININE 0.86 mg/dL (0.55-1.02); SODIUM 140 mmol/L (136-145); TOTAL PROTEIN 6.3 g/dL (6.4-8.2); eGFR NON BLACK RACES > 60 (>60)
[2020-07-12 07:03] LABS: BASOPHILS % (AUTO) 0.5 % (0.2-1.0); EOSINOPHILS # (AUTO) 0.2 x10^3/uL (0.0-0.2); HEMATOCRIT 23.1 % (36.0-47.0); HEMOGLOBIN 7.1 g/dL (12.0-16.0); LYMPHOCYTES # (AUTO) 2.2 X10^3/uL (1.3-2.9); LYMPHOCYTES % (AUTO) 24.9 % (21.0-51.0); MEAN CORPUSCULAR HEMOGLOBIN 22.6 pg (27.0-34.0); MEAN CORPUSCULAR HGB CONC 30.9 g/dL (33.0-35.0); MEAN PLATELET VOLUME 9.3 fL (7.4-11.0); MONOCYTES # (AUTO) 0.8 x10^3/uL (0.3-0.8); MONOCYTES % (AUTO) 8.4 % (0.0-13.0); NEUTROPHILS # (AUTO) 5.8 x10^3/uL (2.2-4.8); NEUTROPHILS % (AUTO) 64.2 % (42.0-75.0); PLATELET COUNT 281 X10^3/uL (150.0-450.0); RED BLOOD COUNT 3.16 X10^6/uL (3.5-5.4); RED CELL DISTRIBUTION WIDTH 18.8 % (11.6-16.5)
[2020-07-12 07:22] LABS: HYPOCHROMASIA 1+; PLATELET MORPHOLOGY COMMENT NORMAL (NORMAL)
[2020-07-12] MEDS ORDERED: ZESTRIL TAB 20 MG ONE ×2 (08:26→20:30)
[2020-07-12] MEDS ORDERED: TOPROL XL PO ONE (08:26)
[2020-07-12] MEDS: XARELTO PO SCH (08:32)
[2020-07-12] MEDS: ZESTRIL TAB 20 MG PO SCH ×2 (08:33→21:10)
[2020-07-12] MEDS: XANAX PO SCH ×2 (08:33→21:10)
[2020-07-12] MEDS: TOPROL XL PO SCH (08:34)
[2020-07-12] MEDS: SINGULAIR TAB 10 MG PO SCH (08:34)
[2020-07-12] MEDS: PREVACID PO SCH (08:35)
[2020-07-12] MEDS: ASPIRIN EC 81 MG PO SCH (08:35)
[2020-07-12] MEDS: MEGACE ORAL SUSP 400 MG/10 ML PO SCH (08:35)
[2020-07-12] MEDS: CRESTOR TAB 10 MG PO SCH (08:36)
[2020-07-12] MEDS: HYDROCHLOROTHIAZIDE 25 MG TAB PO SCH (08:36)
[2020-07-12] MEDS: HEMOCYTE-PLUS PO SCH (08:37)
[2020-07-12] MEDS: CORDARONE TAB 200 MG PO SCH (08:40)
[2020-07-12] MEDS: PLAVIX PO SCH (08:40)
[2020-07-12] MEDS ORDERED: NS 500 ML IV 500 ML IV ONE (16:58)
[2020-07-12 21:25] LABS: HEMATOCRIT 27.5 % (36.0-47.0); HEMOGLOBIN 8.8 g/dL (12.0-16.0)
[2020-07-12] MEDS: ROCEPHIN 1 GRAM IV PREMIX 1 G/50 ML IV.SOLN. IV SCH (22:00)
[2020-07-13] MEDS: NS 1000 ML 1,000 ML IV SCH ×2 (01:13→04:40)
[2020-07-13] MEDS ORDERED: BUTT CREAM (COMPOUND) TOP PRN (02:38)
[2020-07-13 06:44] LABS: BASOPHILS # (AUTO) 0.1 X10^3/uL (0.0-0.1); BASOPHILS % (AUTO) 0.5 % (0.2-1.0); EOSINOPHILS # (AUTO) 0.2 x10^3/uL (0.0-0.2); EOSINOPHILS % (AUTO) 1.6 % (0.9-2.9); HEMATOCRIT 28.5 % (36.0-47.0); HEMOGLOBIN 9.1 g/dL (12.0-16.0); LYMPHOCYTES # (AUTO) 2.9 X10^3/uL (1.3-2.9); LYMPHOCYTES % (AUTO) 21.8 % (21.0-51.0); MEAN CORPUSCULAR HEMOGLOBIN 23.6 pg (27.0-34.0); MEAN CORPUSCULAR HGB CONC 31.8 g/dL (33.0-35.0); MEAN CORPUSCULAR VOLUME 74.2 fL (80.0-100.0); MEAN PLATELET VOLUME 8.9 fL (7.4-11.0); MONOCYTES # (AUTO) 0.8 x10^3/uL (0.3-0.8); MONOCYTES % (AUTO) 6.1 % (0.0-13.0); NEUTROPHILS # (AUTO) 9.3 x10^3/uL (2.2-4.8); PLATELET COUNT 295 X10^3/uL (150.0-450.0); RED BLOOD COUNT 3.84 X10^6/uL (3.5-5.4); RED CELL DISTRIBUTION WIDTH 19.3 % (11.6-16.5); WHITE BLOOD COUNT 13.3 X10^3/uL (3.6-10.0)
[2020-07-13 06:50] LABS: ALANINE AMINOTRANSFERASE 30 Units/L (12-78); ALBUMIN 2.3 g/dL (3.4-5.0); ALKALINE PHOSPHATASE 50 Units/L (46-116); ASPARTATE AMINO TRANSFERASE 22 Units/L (15-37); BLOOD UREA NITROGEN 14 mg/dL (7-18); CALCIUM 9.4 mg/dL (8.5-10.1); CHLORIDE 104 mmol/L (98-107); COR CA(FOR HYPOALB) 10.8 mg/dL (8.5-10.1); CREATININE 0.81 mg/dL (0.55-1.02); SODIUM 139 mmol/L (136-145); TOTAL PROTEIN 6.6 g/dL (6.4-8.2); eGFR NON BLACK RACES > 60 (>60)
[2020-07-13 07:10] LABS: PLATELET MORPHOLOGY COMMENT NORMAL (NORMAL)
[2020-07-13 07:11] LABS: HYPOCHROMASIA 1+
[2020-07-13 07:12] LABS: ANISOCYTOSIS SLIGHT; MICROCYTOSIS SLIGHT
[2020-07-13] MEDS ORDERED: ZESTRIL TAB 20 MG ONE (09:53)
[2020-07-13] MEDS ORDERED: TOPROL XL PO ONE (09:53)
[2020-07-13] MEDS: ASPIRIN EC 81 MG PO SCH (10:00)
[2020-07-13] MEDS: K-DUR TAB 20 MEQ PO PRN (10:01)
[2020-07-13] MEDS: XARELTO PO SCH (10:01)
[2020-07-13] MEDS: ZESTRIL TAB 20 MG PO SCH (10:02)
[2020-07-13] MEDS: CRESTOR TAB 10 MG PO SCH (10:02)
[2020-07-13] MEDS: HYDROCHLOROTHIAZIDE 25 MG TAB PO SCH (10:03)
[2020-07-13] MEDS: TOPROL XL PO SCH (10:03)
[2020-07-13] MEDS: MEGACE ORAL SUSP 400 MG/10 ML PO SCH (10:04)
[2020-07-13] MEDS: SINGULAIR TAB 10 MG PO SCH (10:04)
[2020-07-13] MEDS: PREVACID PO SCH (10:05)
[2020-07-13] MEDS: PLAVIX PO SCH (10:06)
[2020-07-13] MEDS: CORDARONE TAB 200 MG PO SCH (10:06)
[2020-07-13] MEDS: XANAX PO SCH (10:07)
[2020-07-13 12:41] VITALS: BP 142/74
== END 2020-07-13 12:39 | disposition home health service (06) | DRG 872 ==
LOC: OBS 12:40 → ER 12:40 → OBS 19:40 → MED/SURG 07-09 10:22
PROVIDERS: ADMIT Internal Medicine; ATTEND Internal Medicine
DX: N39.0 Urinary tract infection, site not specified; I25.810 Atherosclerosis of coronary artery bypass graft(s) without angina pectoris; B96.4 Proteus (mirabilis) (morganii) as the cause of diseases classified elsewhere; E78.2 Mixed hyperlipidemia; Z74.01 Bed confinement status; I48.20 Chronic atrial fibrillation, unspecified; A41.89 Other specified sepsis; R06.02 Shortness of breath; R62.7 Adult failure to thrive; I10 Essential (primary) hypertension; R53.1 Weakness; Z20.828 Contact with and (suspected) exposure to other viral communicable diseases

== ENCOUNTER 2020-08-01 18:19 | Inpatient (IN) ==
--- NOTE | 2020-08-01 19:10 | DR.GENAD ---
HPI Time Seen Time Seen by Provider: 08/01/20 19:01 PCP Primary Care Physician: ANGELA HPI Comment HPI Comment: PATIENT IS 75YR OLD FEMALE IN ER WITH INCREASING WEAKNESS THAT IS WORSE TODAY. FAMILY CONCERN SHE MAY . LOW GRADE FEVER. NO NAUSEA OR VOMITING. COMPLAINING OF LOWER BACK PAIN. Complaint/Symptoms Chief Complaint Doctors Comments: INCREASING WEAKNESS Chief Complaint:: FAMILY CALLED EMS BECAUSE "THEY DIDN'T WANT HER TO AT HOME" COVID-19 Coronavirus risk:travel/contact w/high risk person: No Has patient experienced Coronavirus symptoms: Yes Coronavirus symptoms experienced: Fever Nurses notes reviewed Nurses Notes Review: Yes Source History Provided: Patient Mode of Arrival Mode of Arrival: EMS Timing Onset of Chief Complaint: 08/01/20 Came on: Gradually Duration Duration: Constant Duration: Days Location Location: LOWER BACK. Severity Severity: Moderate Modifying Factors Worsens:: PAIN WORSE WHEN SHE LAY ON HER BACK. Improves:: PRESSURE OFF LOWER BACK. Other History Other History: HTN, ATHRITIS, PREVIOUS CVA. PMH PMH Past Medical History: Yes Past Medical History: Anxiety, Arthritis, CVA, Dementia, Depression, Dyslipidemia and Hypertension Past Surgical History: Yes Surgical History: Hysterectomy Family History History of Family Medical Conditions: Yes Family Medical History: Cancer Social History Alcohol Use: None Do you use any recreational Drugs:: No Lives Where: Home Travel Risk Coronavirus risk:travel/contact w/high risk person: No Has patient experienced Coronavirus symptoms: Yes Coronavirus symptoms experienced: Fever Infectious screening Have you traveled outside the country in the last 6 months?: No Isolation: Standard ROS Review of Systems Constitutional: See HPI, Weakness and Fatigue; negative Fever Eyes: No Symptoms Reported and See HPI ENTM: No Symptoms Reported and See HPI; negative Nose Discharge and Nose Congestion Respiratoy: No Symptoms Reported, See HPI and Short of Breath (ON EXERTION.); negative Moist Cough and Wheezing Cardiovascular: No Symptoms Reported and See HPI; negative Chest Pain Gastrointestinal/Abdominal: No Symptoms Reported and See HPI; negative Abdominal Pain, Diarrhea and Vomiting Genitourinary: See HPI and Other (INCONTINENCE OF URINE.) Neurological: See HPI, Pre-existing Deficit and Weakness; negative Dizziness Musculoskeletal: See HPI and Back Pain Integumentary: No Symptoms Reported and See HPI; negative Change in Color, Rash and Juandice Hematologic/Lymphatic: See HPI and Easy Bruising; negative Swollen Glands Endocrine: No Symptoms Reported and See HPI; negative Increased Thirst and Increased Urine Psychiatric: No Symptoms Reported and See HPI All Other Systems: Reviewed and Negative PE Vital Signs Vitals: Temperature 99.5 F Pulse Rate 92 Respiratory Rate 17 Blood Pressure [Left Arm] 143/81 Blood Pressure [Right Arm] 142/74 Blood Pressure 158/85 O2 Sat by Pulse Oximetry 97 General Limitations: No Limitations General Appearance: Alert and In No Apparent Distress Head Head Exam: Normal Inspection Eyes Eye exam: Normal Appearance and PERRL; negative Scleral Icterus and Conjunctival Injection ENT ENT Exam: Normal Exam, Normal Oropharynx, Normal External Ear Exam and TM's Normal Bilaterally External Ear Exam: Normal External Inspection; negative Mastoid Tenderness TM/Canal Exam: Bilateral: Normal Nose Exam: Normal Nose Exam Mouth Exam: Normal Inspection; negative Lip Swelling and Tongue Swelling Throat Exam: Normal Inspection; negative Tonsillar Erythema, Tonsillomegaly and Tonsillar Exudate Neck Neck Exam: Normal Inspection and Trachea Midline; negative Tenderness and Lymphadenopathy Chest Chest Inspection: Normal Inspection and Symmetric Chest Wall Rise; negative Tenderness Respiratory Respiratory Exam: Normal Lung Sounds Bilat; negative Accessory Muscle Use, Chest Wall Tenderness and Respiratory Distress Respiratory Exam: Bilateral: Rhonchi and Lower: Rhonchi Cardiovascular Cardiovascular Exam: Regular Rate, Normal Rhythm and Normal Heart Sounds; negative Systolic Murmur and Diastolic Murmur Abdominal Exam Abdominal Exam: Normal Inspection, Normal Bowel Sounds and Soft; negative Tenderness Extremities Extremities Exam: Edema Back Back Exam: (R) CVA Tenderness, (L) CVA Tenderness and Paraspinal Tenderness Neurologic Neurological Exam: Alert, Oriented X3 (ORIENTED TO PLACE AND PERSON.) and Motor Sensory Deficit Psychiatric Psychiatric Exam: Normal Affect and Anxious Skin Skin Exam: Warm, Dry, Intact and Normal Color MDM Differential Diagnosis Differential Diagnosis: DEHYDRATION, UTI, PNEUMONIA, CHF, GENERALIZED WEAKNESS. COURSE Treatment Treatment: SEE ORDERS. NS 80CC/HR, ROCEPHIN 1GM IVPB. Consultation Consultation Comments: DISCUSSED PATIENT WITH DR. MILLER. HE WILL ADMIT PATIENT. Education/Counseling Education/Counseling: Patient Educated On: Diagnosis ROR Labs Reviewed Laboratory Results Reviewed?: Yes Result Diagrams: 08/03/20 06:03 08/03/20 06:03 Laboratory: WBC 13.1 X10^3/uL (3.6-10.0) H 08/01/20 19:21 RBC 4.46 X10^6/uL (3.5-5.4) 08/01/20 19:21 Hgb 10.5 g/dL (12.0-16.0) L 08/01/20 19: Hct 34.7 % (36.0-47.0) L 08/01/20 19:21 MCV 77.8 fL (80.0-100.0) L 08/01/20 19: MCH 23.4 pg (27.0-34.0) L 08/01/20 19: MCHC 30.1 g/dL (33.0-35.0) L 08/01/20 19: RDW 22.1 % (11.6-16.5) H 08/01/20 19: Plt Count 458 X10^3/uL (150.0-450.0) H 08/01/20 19:21 Plt Count Comment Increased (ADEQUATE) A 08/01/20 19: MPV 8.6 fL (7.4-11.0) 08/01/20 19: Neut % (Auto) 74.4 % (42.0-75.0) 08/01/20 19:21 Lymph % (Auto) 19.9 % (21.0-51.0) L 08/01/20 19: [place] % (Auto) 4.5 % (0.0-13.0) 08/01/20 19:21 Eos % (Auto) 0.4 % (0.9-2.9) L 08/01/20 19:21 Baso % (Auto) 0.8 % (0.2-1.0) 08/01/20 19:21 Neut # (Auto) 9.8 x10^3/uL (2.2-4.8) H 08/01/20 19:21 Lymph # (Auto) 2.6 X10^3/uL (1.3-2.9) 08/01/20 19:21 [place] # (Auto) 0.6 x10^3/uL (0.3-0.8) 08/01/20 19:21 Eos # (Auto) 0.1 x10^3/uL (0.0-0.2) 08/01/20 19: Baso # (Auto) 0.1 X10^3/uL (0.0-0.1) 08/01/20 19:21 Absolute Nucleated RBC 0.0 /100WBC 08/01/20 19:21 Plt Morphology Comment Normal (NORMAL) 08/01/20 19:21 RBC Morphology Abnormal (NORMAL) A 08/01/20 19:21 Hypochromasia 1+ A 08/01/20 19:21 Anisocytosis 2+ A 08/01/20 19:21 Microcytosis Slight A 08/01/20 19:21 Sodium 152 mmol/L (136-145) H* 08/01/20 19:21 Corrected Sodium TNP 08/01/20 19:21 Potassium 3.5 mmol/L (3.5-5.1) 08/01/20 19: Chloride 112 mmol/L (98-107) H 08/01/20 19:21 Carbon Dioxide 27.6 mmol/L (21-32) 08/01/20 19:21 BUN 50 mg/dL (7-18) H 08/01/20 19:21 Creatinine 2.60 mg/dL (0.55-1.02) H 08/01/20 19:21 Est GFR (MDRD) Af Amer 23 (>60) L 08/01/20 19:21 Est GFR (MDRD) Non-Af 19 (>60) L 08/01/20 19:21 Glucose 88 mg/dL (65-99) 08/01/20 19:21 Calcium 9.9 mg/dL (8.5-10.1) 08/01/20 19: Corrected Calcium 11.3 mg/dL (8.5-10.1) H 08/01/20 19:21 Total Bilirubin 0.30 mg/dL (0.2-1.0) 08/01/20 19:21 AST 31 Units/L (15-37) 08/01/20 19: ALT 20 Units/L (12-78) 08/01/20 19: Alkaline Phosphatase 78 Units/L (46-116) 08/01/20 19:21 Creatine Kinase 227 Units/L (26-192) H 08/01/20 19:21 CK-MB (CK-2) < 1.0 ng/mL (0-4.0) 08/01/20 19: CK/CKMB % Calc 0.4 % (<4) 08/01/20 19: Troponin I < 0.02 ng/mL (0-1.5) 08/01/20 19: Total Protein 8.1 g/dL (6.4-8.2) 08/01/20 19: Albumin 2.3 g/dL (3.4-5.0) L 08/01/20: Globulin 5.8 g/dL (2.5-4.5) H 08/01/20: Albumin/Globulin Ratio 0.4 Ratio (1.1-2.1) L 08/01/20 19:21 Specimen Type Catherized urine 08/01/20 20:45 Urine Color Yellow (YELLOW) 08/01/20 20:45 Urine Appearance Slightly hazy (CLEAR) 08/01/20 20:45 Urine pH 5.0 (5.0 - 8.0) 08/01/20 20:45 Ur Specific [place] 1.020 (1.000-1.030) 08/01/20 20:45 Urine Protein 2+ (NEGATIVE) 08/01/20 20:45 Urine Glucose (UA) Negative (NEGATIVE) 08/01/20 20:45 Urine Ketones 1+ (NEGATIVE) 08/01/20 20:45 Urine Occult Blood 1+ (NEGATIVE) 08/01/20 20:45 Urine Nitrite Negative (NEGATIVE) 08/01/20 20:45 Urine Bilirubin Negative (NEGATIVE) 08/01/20 20:45 Urine Urobilinogen Normal (NORMAL) 08/01/20 20:45 Ur Leukocyte Esterase 2+ (NEGATIVE) 08/01/20 20:45 Urine RBC 0-2 /HPF (0-3) 08/01/20 20:45 Urine WBC 3-5 /HPF (0-5) 08/01/20 20:45 Ur Squamous Epith Cells Numerous /HPF (NEGATIVE) 08/01/20 20:45 Urine Bacteria 1+ /HPF (NEGATIVE) 08/01/20 20:45 Hyaline Casts Few /LPF (NEGATIVE) 08/01/20 20:45 Ur Culture Indicated? No/not indicated 08/01/20 20:45 SARS CoV-2 RNA Rapid IESHA Negative (NEGATIVE) 08/01/20 20:45 XRAY XRAY Interpreted by: Radiologist and Self Opioid Opioid Risk Tool Age (Elmer box if 16-45): No History of Preadolescent Sexual Abuse: No Total: 0 Total Score Risk Category: Low Risk Copyright: Rogelio SANCHEZ predicting aberrant behaviors Diagnosis Discharge Problem: Acute hypernatremia, Acute dehydration, Acute renal insufficiency UTI (urinary tract infection) Qualifiers: Urinary tract infection type: site unspecified Hematuria presence: with hematuria Qualified Code(s): N39.0 - Urinary tract infection, site not specified Instructions Instructions: Hand Washing, [id number] Hypernatremia, [id number]-Ijef Weakness, [id number] Leukocytosis [facility]iative [facility] Forms: Precautions for COVID19 Patient Portal Social Distancing
[2020-08-01 19:32] LABS: BASOPHILS # (AUTO) 0.1 X10^3/uL (0.0-0.1); BASOPHILS % (AUTO) 0.8 % (0.2-1.0); EOSINOPHILS # (AUTO) 0.1 x10^3/uL (0.0-0.2); EOSINOPHILS % (AUTO) 0.4 % (0.9-2.9); HEMATOCRIT 34.7 % (36.0-47.0); HEMOGLOBIN 10.5 g/dL (12.0-16.0); LYMPHOCYTES # (AUTO) 2.6 X10^3/uL (1.3-2.9); LYMPHOCYTES % (AUTO) 19.9 % (21.0-51.0); MEAN CORPUSCULAR HEMOGLOBIN 23.4 pg (27.0-34.0); MEAN CORPUSCULAR HGB CONC 30.1 g/dL (33.0-35.0); MEAN CORPUSCULAR VOLUME 77.8 fL (80.0-100.0); MEAN PLATELET VOLUME 8.6 fL (7.4-11.0); MONOCYTES # (AUTO) 0.6 x10^3/uL (0.3-0.8); MONOCYTES % (AUTO) 4.5 % (0.0-13.0); NEUTROPHILS # (AUTO) 9.8 x10^3/uL (2.2-4.8); NEUTROPHILS % (AUTO) 74.4 % (42.0-75.0); PLATELET COUNT 458 X10^3/uL (150.0-450.0); RED BLOOD COUNT 4.46 X10^6/uL (3.5-5.4); RED CELL DISTRIBUTION WIDTH 22.1 % (11.6-16.5); WHITE BLOOD COUNT 13.1 X10^3/uL (3.6-10.0)
[2020-08-01 19:51] LABS: ALANINE AMINOTRANSFERASE 20 Units/L (12-78); ALBUMIN 2.3 g/dL (3.4-5.0); ALKALINE PHOSPHATASE 78 Units/L (46-116); ASPARTATE AMINO TRANSFERASE 31 Units/L (15-37); BLOOD UREA NITROGEN 50 mg/dL (7-18); CALCIUM 9.9 mg/dL (8.5-10.1); CARBON DIOXIDE 27.6 mmol/L (21-32); CHLORIDE 112 mmol/L (98-107); CKMB % 0.4 % (<4); COR CA(FOR HYPOALB) 11.3 mg/dL (8.5-10.1); CREATINE KINASE 227 Units/L (26-192); CREATINE KINASE MB < 1.0 ng/mL (0-4.0); TOTAL PROTEIN 8.1 g/dL (6.4-8.2); TROPONIN I < 0.02 ng/mL (0-1.5); eGFR NON BLACK RACES 19 (>60)
[2020-08-01 19:56] LABS: SODIUM 152 mmol/L (136-145)
[2020-08-01 20:04] LABS: ANISOCYTOSIS 2+; HYPOCHROMASIA 1+; MICROCYTOSIS SLIGHT; PLATELET MORPHOLOGY COMMENT NORMAL (NORMAL)
--- NOTE | 2020-08-01 20:05 | RAD ---
HISTORYSOBSTUDYCHEST, 1 [id number]/2021FINDINGSThe trachea is midline. The cardiac silhouette is stable accounting for difference in rotation. There is mild atherosclerotic calcification of the aortic arch.. The lungs are clear without focal infiltrate or effusion. The bony thorax is unremarkable.IMPRESSIONNo acute cardiopulmonary disease.Electronically signed by: Radha Blanco (Aug 01, 2020 20:03:24)
[2020-08-01 20:56] LABS: BILIRUBIN,URINE NEGATIVE (NEGATIVE); BLOOD/HEMOGLOBIN,URINE 1+ (NEGATIVE); GLUCOSE, URINE NEGATIVE (NEGATIVE); KETONES,URINE 1+ (NEGATIVE); LEUKOCYTE ESTERASE ,URINE 2+ (NEGATIVE); NITRITES,URINE NEGATIVE (NEGATIVE); PROTEIN,URINE 2+ (NEGATIVE); UROBILINOGEN,URINE NORMAL (NORMAL)
[2020-08-01 21:11] LABS: APPEARANCE,URINE SLIGHTLY HAZY (CLEAR); COLOR,URINE YELLOW (YELLOW); RBC,URINE 0-2 /HPF (0-3); SQUAMOUS EPITHELIAL CELL,UR NUMEROUS /HPF (NEGATIVE)
[2020-08-01 21:12] LABS: BACTERIA,URINE 1+ /HPF (NEGATIVE); HYALINE CASTS, URINE FEW /LPF (NEGATIVE)
[2020-08-01] MEDS ORDERED: NS 1/2 1000 ML IV 1,000 ML IV SCH (23:40)
[2020-08-02 00:23] LABS: CKMB % 0.6 % (<4); CREATINE KINASE 183 Units/L (26-192); CREATINE KINASE MB < 1.0 ng/mL (0-4.0); TROPONIN I < 0.02 ng/mL (0-1.5)
[2020-08-02 01:01] VITALS: BMI 19.9
[2020-08-02] MEDS ORDERED: NS 1/2 1000 ML IV 1,000 ML IV ONE (02:08)
[2020-08-02] MEDS ORDERED: ROCEPHIN 1 GRAM IV PREMIX 1 G/50 ML IV.SOLN. IV ONE ×2 (02:09→07:51)
[2020-08-02] MEDS: ROCEPHIN 1 GRAM IV PREMIX 1 G/50 ML IV.SOLN. IV SCH ×2 (02:15→08:00)
[2020-08-02 07:14] LABS: BASOPHILS # (AUTO) 0.1 X10^3/uL (0.0-0.1); BASOPHILS % (AUTO) 0.5 % (0.2-1.0); EOSINOPHILS % (AUTO) 0.2 % (0.9-2.9); HEMATOCRIT 31.6 % (36.0-47.0); HEMOGLOBIN 9.8 g/dL (12.0-16.0); LYMPHOCYTES # (AUTO) 2.6 X10^3/uL (1.3-2.9); LYMPHOCYTES % (AUTO) 16.8 % (21.0-51.0); MEAN CORPUSCULAR HEMOGLOBIN 23.9 pg (27.0-34.0); MEAN CORPUSCULAR HGB CONC 30.9 g/dL (33.0-35.0); MEAN CORPUSCULAR VOLUME 77.2 fL (80.0-100.0); MEAN PLATELET VOLUME 8.8 fL (7.4-11.0); MONOCYTES # (AUTO) 0.7 x10^3/uL (0.3-0.8); MONOCYTES % (AUTO) 4.7 % (0.0-13.0); NEUTROPHILS % (AUTO) 77.8 % (42.0-75.0); PLATELET COUNT 417 X10^3/uL (150.0-450.0); RED BLOOD COUNT 4.09 X10^6/uL (3.5-5.4); RED CELL DISTRIBUTION WIDTH 22.1 % (11.6-16.5); WHITE BLOOD COUNT 15.4 X10^3/uL (3.6-10.0)
[2020-08-02 07:32] LABS: ALANINE AMINOTRANSFERASE 15 Units/L (12-78); ALBUMIN 2.1 g/dL (3.4-5.0); ALKALINE PHOSPHATASE 70 Units/L (46-116); ASPARTATE AMINO TRANSFERASE 22 Units/L (15-37); BLOOD UREA NITROGEN 52 mg/dL (7-18); CALCIUM 9.5 mg/dL (8.5-10.1); CARBON DIOXIDE 22.7 mmol/L (21-32); CHLORIDE 112 mmol/L (98-107); CKMB % 0.8 % (<4); CREATINE KINASE 123 Units/L (26-192); CREATINE KINASE MB < 1.0 ng/mL (0-4.0); CREATININE 2.17 mg/dL (0.55-1.02); MAGNESIUM 2.3 mg/dL (1.7-2.9); TOTAL PROTEIN 7.5 g/dL (6.4-8.2); TROPONIN I < 0.02 ng/mL (0-1.5); eGFR NON BLACK RACES 24 (>60)
[2020-08-02 07:53] LABS: SODIUM 151 mmol/L (136-145)
[2020-08-02 07:54] LABS: ANISOCYTOSIS 1+; HYPOCHROMASIA SLIGHT; MICROCYTOSIS SLIGHT; PLATELET MORPHOLOGY COMMENT NORMAL (NORMAL)
[2020-08-02] MEDS ORDERED: NORCO 5/325 MG TAB PO PRN (09:29)
[2020-08-02] MEDS ORDERED: D5W 1000 ML IV 1,000 ML IV SCH (10:00)
[2020-08-02] MEDS: XANAX PO SCH ×2 (13:25→22:13)
[2020-08-02] MEDS ORDERED: XANAX ONE (13:25)
[2020-08-02] MEDS: CORDARONE TAB 200 MG PO SCH (13:26)
[2020-08-02] MEDS: D5W 1000 ML IV 1,000 ML with POTASSIUM CHLORIDE INJ 40 MEQ VIAL 40 MEQ IV SCH ×2 (14:01)
--- NOTE | 2020-08-02 18:51 | DR.H&P ---
H&P - History & Physical for Day of: H&P Date: 08/01/20 - Chief Complaint Chief Complaint: weakness, AMS - History of Present Illness History of Present Illness: 75 WF ER ADMISSION WITH CO WEAKNESS, NOT EATING, DEHYDRATION. PT HAS PMH OF CVA, WITH BED CONFINEMENT. PT HAS BEEN UNDER THE CARE OF HOME HEALTH. PT HAD GREAT GRANDCHILD PASS AWAY 2 WEEKS AGO AND SINCE THEN SHE HAD NOT BEEN EATING OR DRINKING, VERY LETHARGIC, DEPRESSED. PT HAS PMH OF CVA, AFIB, HTN, OA. PT ADMITTED FOR TREATMENT OF ACUTE DEHYDRATION, RENAL FAILURE. - Past Medical History Past Medical History: Hypertension, Dyslipidemia, Dementia, Depression, Anxiety, CVA, Arthritis Additional Medical History: AFIB - Past Surgical History Surgical History: DRONE PILOT Surgery - Family History Family Medical History: Cancer - Social History Does patient currently use any type of tobacco product: No Alcohol Use: None Drug Use: None - Medications Home Medications: No Known Drug Allergies Allergy (Verified 01/23/20 18:03) - Review of Systems Constitutional: Weakness Eyes: No Symptoms Reported ENT: No Symptoms Reported Respiratory: Shortness of Breath Cardiovascular: No Symptoms Reported Gastrointestinal: Nausea Genitourinary: Incontinence Musculoskeletal: Shoulder Pain, Hand Pain, Leg Pain Skin: Bruising Neurological: Weakness, Confusion - Physical Exam Vital Signs: Temperature 98.5 F Pulse Rate [Left Brachial] 91 Pulse Rate 83 Respiratory Rate 16 Blood Pressure [Left Arm] 143/81 Blood Pressure [Right Arm] 115/59 Blood Pressure 140/65 O2 Sat by Pulse Oximetry 96 Oriented: Person Eyes: Normal Ear: Normal Nose: Normal Throat: Dry Respiratory: Diminished Throughout Cardiovascular: Tachycardia : Normal Auscultation: Bowel Sounds: Normal Palpation: Normal Tenderness: Normal Skin: Decreased Turgur Musculoskeletal: Back:Lumbar Psychiatric: Anxiety Affect: Anxious Speech Pattern: Delayed - Assessment/Plan (1) Acute renal insufficiency Status: Acute Plan: ADMIT, GENTLE IV HYDRATION. BLOOD AND URINE CULTURE ON ADMISSION. VERIFY HOME MEDICATION CXR ON ADMISSON. BP AND CARDIAC MONITORING, SUPPLEMENTAL O2 PRN (2) UTI (urinary tract infection) Qualifiers: Urinary tract infection type: site unspecified Hematuria presence: without hematuria Qualified Code(s): N39.0 - Urinary tract infection, site not specified Status: Acute (3) Atrial fibrillation Qualifiers: Atrial fibrillation type: unspecified chronic Qualified Code(s): I48.20 - Chronic atrial fibrillation, unspecified Status: Acute (4) Generalized weakness Status: Acute (5) History of CVA (cerebrovascular accident) Status: Acute (6) Acute hypernatremia Status: Acute (7) Protein calorie malnutrition Status: Acute - Allergies Allergies/Adverse Reactions: Allergies Allergy/AdvReac Type Severity Reaction Status Date / Time No Known Drug Allergies Allergy Verified 01/23/20 18:03
[2020-08-03] MEDS: D5W 1000 ML IV 1,000 ML with POTASSIUM CHLORIDE INJ 40 MEQ VIAL 40 MEQ IV SCH ×2 (01:59)
[2020-08-03 07:02] LABS: BASOPHILS # (AUTO) 0.1 X10^3/uL (0.0-0.1); BASOPHILS % (AUTO) 0.5 % (0.2-1.0); EOSINOPHILS # (AUTO) 0.1 x10^3/uL (0.0-0.2); EOSINOPHILS % (AUTO) 0.7 % (0.9-2.9); HEMATOCRIT 31.3 % (36.0-47.0); LYMPHOCYTES # (AUTO) 2.4 X10^3/uL (1.3-2.9); LYMPHOCYTES % (AUTO) 16.2 % (21.0-51.0); MEAN CORPUSCULAR HEMOGLOBIN 24.5 pg (27.0-34.0); MEAN CORPUSCULAR VOLUME 76.7 fL (80.0-100.0); MEAN PLATELET VOLUME 9.1 fL (7.4-11.0); MONOCYTES # (AUTO) 0.8 x10^3/uL (0.3-0.8); MONOCYTES % (AUTO) 5.3 % (0.0-13.0); NEUTROPHILS # (AUTO) 11.7 x10^3/uL (2.2-4.8); NEUTROPHILS % (AUTO) 77.3 % (42.0-75.0); PLATELET COUNT 379 X10^3/uL (150.0-450.0); RED BLOOD COUNT 4.07 X10^6/uL (3.5-5.4); RED CELL DISTRIBUTION WIDTH 22.5 % (11.6-16.5); WHITE BLOOD COUNT 15.1 X10^3/uL (3.6-10.0)
[2020-08-03 07:14] LABS: CALCIUM 9.4 mg/dL (8.5-10.1); CARBON DIOXIDE 23.1 mmol/L (21-32); CREATININE 1.69 mg/dL (0.55-1.02); TOTAL PROTEIN 7.2 g/dL (6.4-8.2)
[2020-08-03] MEDS ORDERED: PLAVIX ONE (07:56)
[2020-08-03] MEDS ORDERED: XANAX ONE (07:56)
[2020-08-03] MEDS ORDERED: ROCEPHIN 1 GRAM IV PREMIX 1 G/50 ML IV.SOLN. IV ONE (07:57)
[2020-08-03 08:08] LABS: BAND NEUTROPHILS % 1 % (0-10)
[2020-08-03 08:09] LABS: ANISOCYTOSIS 1+; PLATELET MORPHOLOGY COMMENT NORMAL (NORMAL)
[2020-08-03] MEDS ORDERED: HEMOCYTE-PLUS PO SCH (09:00)
[2020-08-03] MEDS ORDERED: CRESTOR TAB 10 MG PO SCH (09:00)
[2020-08-03] MEDS ORDERED: PLAVIX PO SCH (09:00)
[2020-08-03] MEDS ORDERED: TOPROL XL PO SCH (09:00)
[2020-08-03] MEDS ORDERED: XARELTO PO SCH (10:00)
[2020-08-03] MEDS: ROCEPHIN 1 GRAM IV PREMIX 1 G/50 ML IV.SOLN. IV SCH (10:17)
[2020-08-03] MEDS: XANAX PO SCH (10:18)
[2020-08-03] MEDS: CORDARONE TAB 200 MG PO SCH (10:20)
[2020-08-03 15:12] VITALS: BP 142/72
== END 2020-08-03 15:12 | disposition hospice, home (50) ==
LOC: ER 18:19 → OBS 21:52
PROVIDERS: ADMIT Family Medicine; ATTEND Internal Medicine
DX: N39.0 Urinary tract infection, site not specified; R79.1 Abnormal coagulation profile; N28.9 Disorder of kidney and ureter, unspecified; F43.0 Acute stress reaction; Z86.73 Personal history of transient ischemic attack (TIA), and cerebral infarction without residual deficits; R13.10 Dysphagia, unspecified; I48.91 Unspecified atrial fibrillation; E87.0 Hyperosmolality and hypernatremia; F41.1 Generalized anxiety disorder; R26.2 Difficulty in walking, not elsewhere classified; E86.0 Dehydration; Z11.52 Encounter for screening for COVID-19; R94.31 Abnormal electrocardiogram [ECG] [EKG]